=== PATIENT | male | born 1945 | race Caucasian/White ===

== ENCOUNTER → 2023-12-08 09:49 | Outpatient (REF) | payer MEDICARE, SELFPAY ==
[2023-12-08 10:39] LABS: INR 2.54; PT 27.6 Sec (11.4-14.6)
== END ==
LOC: REG 09:49
PROVIDERS: ATTENDING PHYSICIAN Internal Medicine; FAMILY PHYSICIAN Internal Medicine
DX: I48.0 Paroxysmal atrial fibrillation (principal)
CPT/HCPCS: 36415; 85610

== ENCOUNTER → 2023-12-15 09:22 | Outpatient (REF) | payer MEDICARE, SELFPAY ==
[2023-12-15 10:16] LABS: INR 2.31; PT 25.7 Sec (11.4-14.6)
== END ==
LOC: REG 09:22
PROVIDERS: ATTENDING PHYSICIAN Internal Medicine; FAMILY PHYSICIAN Internal Medicine
DX: I48.0 Paroxysmal atrial fibrillation (principal)
CPT/HCPCS: 36415; 85610

== ENCOUNTER → 2023-12-29 08:18 | Outpatient (REF) | payer MEDICARE, SELFPAY ==
[2023-12-29 09:27] LABS: PT 32.4 Sec (11.4-14.6)
== END ==
LOC: REG 08:18
PROVIDERS: ATTENDING PHYSICIAN Internal Medicine; FAMILY PHYSICIAN Internal Medicine
DX: I48.0 Paroxysmal atrial fibrillation (principal)
CPT/HCPCS: 36415; 85610

== ENCOUNTER → 2024-01-05 08:24 | Outpatient (REF) | payer MEDICARE, SELFPAY ==
[2024-01-05 09:35] LABS: INR 2.61; PT 28.3 Sec (11.4-14.6)
== END ==
LOC: REG 08:24
PROVIDERS: ATTENDING PHYSICIAN Internal Medicine; FAMILY PHYSICIAN Internal Medicine
DX: I48.0 Paroxysmal atrial fibrillation (principal)
CPT/HCPCS: 36415; 85610

== ENCOUNTER → 2024-01-12 07:48 | Outpatient (REF) | payer MEDICARE, SELFPAY ==
[2024-01-12 09:05] LABS: INR 2.53; PT 27.6 Sec (11.4-14.6)
== END ==
LOC: REG 07:48
PROVIDERS: ATTENDING PHYSICIAN Internal Medicine; FAMILY PHYSICIAN Internal Medicine
DX: I48.0 Paroxysmal atrial fibrillation (principal)
CPT/HCPCS: 36415; 85610

== ENCOUNTER → 2024-01-31 09:54 | Outpatient (REF) | payer MEDICARE, SELFPAY | LOC: RAD 09:54 | PROVIDERS: ATTENDING PHYSICIAN Nurse Practitioner Adult Health | DX: J18.9 Pneumonia, unspecified organism (principal) | CPT/HCPCS: 71046 ==

== ENCOUNTER → 2024-02-09 08:39 | Outpatient (REF) | payer MEDICARE, SELFPAY ==
[2024-02-09 10:10] LABS: INR 2.62; PT 28.4 Sec (11.4-14.6)
== END ==
LOC: REG 08:39
PROVIDERS: ATTENDING PHYSICIAN Internal Medicine; FAMILY PHYSICIAN Internal Medicine
DX: I48.0 Paroxysmal atrial fibrillation (principal)
CPT/HCPCS: 36415; 85610

== ENCOUNTER → 2024-03-08 08:34 | Outpatient (REF) | payer MEDICARE, SELFPAY ==
[2024-03-08 10:04] LABS: INR 2.05; PT 23.3 Sec (11.4-14.6)
== END ==
LOC: REG 08:34
PROVIDERS: ATTENDING PHYSICIAN Internal Medicine; FAMILY PHYSICIAN Internal Medicine
DX: I48.0 Paroxysmal atrial fibrillation (principal)
CPT/HCPCS: 36415; 85610

== ENCOUNTER 2024-04-04 19:41 | Inpatient (IN) | payer MEDICARE, SELFPAY ==
[2024-04-04 11:39] VITALS: BP 133/62
--- NOTE | 2024-04-04 14:10 | ED.GENMED ---
History of Present Illness
<DELTA Ng - Last Filed: 04/04/24 19:19>
General
Chief Complaint: Oral/Mouth Problem
Source: patient
Exam Limitations: none
Time Seen by Provider: 04/04/24 13:08
Nursing documentation reviewed up to this point in time: agreed with
Travel History
Have you had any contact with someone who has COVID-19?: No
Do you have any symptoms of coronavirus? Fever > 100 degrees, chills, cough, shortness of breath, sore throat, loss of taste or smell, muscle aches, or headache?: No
History of Present Illness
History of Present Illness:
Patient is a 78-year-old male with history of chronic kidney disease hypertension mvo-njfiznj-sayqsxctf diabetes aortic stenosis A-fib CABG, TAVR presents to the ER for evaluation. Patient reports for the past several days he has had ulcers on his
tongue and also has had right lower extremity swelling. He saw his family doctor on Wednesday who did not really give him a diagnosis. He has been using Mylanta. He also reports eating ice cream has helped his discomfort his tongue. He denies any
recent illness fever chills. He denies any difficulty swallowing. He denies any actual sore throat. He on Coumadin and reports he has not missed a dose. He denies any shortness of breath fever.
Past History
<DELTA Ng - Last Filed: 04/04/24 19:19>
Past History
ED Past Medical History: Arrthythmia (Atrial fibrillation, VFIB), CAD, CHF, CVA, HTN, Hypercholesterolemia, NIDDM, Valvular disease (Aortic stenosis) and Other (Peripheral vascular disease, carotid stenosis, GI bleed)
ED Past Surgical History: Cardiac (CABG, TAVR) and Other (PICC line)
Social History
Tobacco: Non-smoker
Alcohol: None
Drug: None
Personal:
Living: with family
Employment: Retired
Family History
Family History: CAD
Review of Systems
<DELTA Ng - Last Filed: 04/04/24 19:19>
Review of Systems
Allergies reviewed?: Yes
All Other Systems: ROS reviewed and negative except as documented in HPI and ROS
Constitutional: Reports no symptoms; Denies fever, fatigue or chills
EENT: Reports other (ulcers to tongue)
Respiratory: Reports no symptoms; Denies trouble breathing
ABD/GI: Reports no symptoms; Denies nausea or vomiting
: Reports no symptoms
Musculoskeletal: Reports other ( swelling to right lower leg )
Skin: Reports no symptoms
Neurological: Reports no symptoms
Phy Exam
<DETLA Ng - Last Filed: 04/04/24 19:19>
General Physical Exam
General Presentation: no apparent distress
General age: appears stated age
General Skin: warm and dry
General Habitus: normal
General Mental: alert
General Hydration: appears well hydrated
ENT Exam
ENT Exam: neck supple and other (Small blisters to tongue)
Eye Exam
Eye Exam: PERRL and EOMI
Cardiovascular Exam
Cardiovascular Exam: irregularly irregular
Pulmonary Exam
Pulmonary Exam: lungs clear and no respiratory distress
Neurological Exam
Neurological Exam: alert and oriented x3
Musculoskeletal Exam
Musculoskeletal Exam: other (right leg swollen + pulses )
Skin Exam
Skin Exam: normal color and warm/dry
Psychiatric Exam
Psychiatric Exam: normal mood/affect
Course
<DELTA Ng - Last Filed: 04/04/24 19:19>
Orders/Labs/Results
Orders:
Orders
04/04/24 14:18
IV Insert/Care/Rem.- Treatment PRN
Venous Doppler Lwr Ext Rt [US Periph Venous LOWER Ext RT] Urgent
Comment:
Reason For Exam: swelling
04/04/24 14:30
Complete Blood Count/With Diff Urgent
Comprehensive Metabolic Panel Urgent
Prothrombin Time Urgent
04/04/24 17:21
0.9% Sodium Chloride 500 ml [Nss] 500 ml IV BOLUS
04/04/24 17:22
Straight cath- Treatment ONCE
04/04/24 17:37
UA Reflex to Culture [Urinalysis Reflex To Culture] Urgent
Date Specimen was Collected: 04/04/24
Time Specimen was Collected: 17:22
Urine Microscopic Reflex Cult Urgent
Urine Culture Urgent
FLOR Source: U
Specimen Description:
Date Specimen was Collected: 04/04/24
Time Specimen was Collected: 17:22
04/04/24 18:14
Chest [CR Chest - 2 Views ] Urgent
Comment:
Reason For Exam: cough
04/04/24 18:17
CefTRIAXone [Rocephin] 1,000 mg IV NOW STA
04/04/24 18:23
Lactic Acid Q4H
Comment: CANCEL 2nd LACTIC ACID IF 1st LACTIC ACID IS LESS THAN 2
Blood Culture Q30M
FLOR Source: Blood/Venous
Specimen Description:
Blood Culture Q30M
FLOR Source: Blood/Venous
Specimen Description:
Abnormal Lab Results
04/04/24 04/04/24
14:30 17:37
WBC 14.1 H 10^3/uL
(4.8-10.8)
RDW 15.8 H %
(11.5-14.5)
Plt Count 94 L 10^3/uL
(130-400)
MPV 12.5 H fL
(7.4-10.4)
Abs Immat Gran (auto) 0.1 H 10^3/uL
(0-0.05)
Absolute Neuts (auto) 12.2 H 10^3/uL
(1.4-6.5)
Absolute Lymphs (auto) 0.6 L 10^3/uL
(1.2-3.4)
Absolute Monos (auto) 1.2 H 10^3/uL
(0.1-0.6)
Immature Gran % 0.6 H %
(0-0.5)
Neutrophils % 86.0 H %
(42.2-75.2)
Lymphocytes % 4.5 L %
(20.5-51.1)
PT 42.0 H Sec
(11.4-14.6)
Sodium 134 L mmol/L
(135-145)
Chloride 96 L mmol/L
(98-107)
BUN 54 H mg/dl
(9-20)
Creatinine 2.2 H mg/dL
(0.7-1.3)
Glucose 154 H mg/dl
(70-99)
Calcium 8.0 L mg/dl
(8.4-10.2)
Alkaline Phosphatase 132 H U/L
(38-126)
Total Protein 5.9 L g/dl
(6.3-8.2)
Albumin 3.0 L g/dl
(3.5-5.0)
Ur Occult Blood Reflex 1+ A
(Negative)
Leukocyte Esterase Rfl Trace A
(Negative)
Urine RBC 3-6 A /HPF
(0-2)
Urine Bacteria (Reflex) Moderate A
(Negative)
Urine Glucose 3+ A
(Negative)
Urine Albumin (Reflex) 1+ A
(Neg - Trace)
04/04/24 14:30
04/04/24 14:30
Vital Signs
Initial and Last Documented VS:
Initial Vital Signs
Temp Pulse Resp BP Pulse Ox
98.5 F 63 18 133/62 96
04/04/24 11:39 04/04/24 11:39 04/04/24 11:39 04/04/24 11:39 04/04/24 11:39
Last Documented Vital Signs
Temp Pulse Resp BP Pulse Ox
98.5 F 102 17 123/61 95
04/04/24 11:39 04/04/24 18:30 04/04/24 18:30 04/04/24 16:00 04/04/24 18:30
Train Driver consulted with Physician
Train Driver consulted with physician?: Yes
Name of Physician Consulted: Néstor
<Lewis Palm MD - Last Filed: 04/04/24 18:57>
Orders/Labs/Results
Orders:
Orders
04/04/24 14:18
IV Insert/Care/Rem.- Treatment PRN
Venous Doppler Lwr Ext Rt [US Periph Venous LOWER Ext RT] Urgent
Comment:
Reason For Exam: swelling
04/04/24 14:30
Complete Blood Count/With Diff Urgent
Comprehensive Metabolic Panel Urgent
Prothrombin Time Urgent
04/04/24 17:21
0.9% Sodium Chloride 500 ml [Nss] 500 ml IV BOLUS
04/04/24 17:22
Straight cath- Treatment ONCE
04/04/24 17:37
UA Reflex to Culture [Urinalysis Reflex To Culture] Urgent
Date Specimen was Collected: 04/04/24
Time Specimen was Collected: 17:22
Urine Microscopic Reflex Cult Urgent
Urine Culture Urgent
FLOR Source: U
Specimen Description:
Date Specimen was Collected: 04/04/24
Time Specimen was Collected: 17:22
04/04/24 18:14
Chest [CR Chest - 2 Views ] Urgent
Comment:
Reason For Exam: cough
04/04/24 18:17
CefTRIAXone [Rocephin] 1,000 mg IV NOW STA
04/04/24 18:23
Lactic Acid Q4H
Comment: CANCEL 2nd LACTIC ACID IF 1st LACTIC ACID IS LESS THAN 2
Blood Culture Q30M
FLOR Source: Blood/Venous
Specimen Description:
Blood Culture Q30M
FLOR Source: Blood/Venous
Specimen Description:
Abnormal Lab Results
04/04/24 04/04/24
14:30 17:37
WBC 14.1 H 10^3/uL
(4.8-10.8)
RDW 15.8 H %
(11.5-14.5)
Plt Count 94 L 10^3/uL
(130-400)
MPV 12.5 H fL
(7.4-10.4)
Abs Immat Gran (auto) 0.1 H 10^3/uL
(0-0.05)
Absolute Neuts (auto) 12.2 H 10^3/uL
(1.4-6.5)
Absolute Lymphs (auto) 0.6 L 10^3/uL
(1.2-3.4)
Absolute Monos (auto) 1.2 H 10^3/uL
(0.1-0.6)
Immature Gran % 0.6 H %
(0-0.5)
Neutrophils % 86.0 H %
(42.2-75.2)
Lymphocytes % 4.5 L %
(20.5-51.1)
PT 42.0 H Sec
(11.4-14.6)
Sodium 134 L mmol/L
(135-145)
Chloride 96 L mmol/L
(98-107)
BUN 54 H mg/dl
(9-20)
Creatinine 2.2 H mg/dL
(0.7-1.3)
Glucose 154 H mg/dl
(70-99)
Calcium 8.0 L mg/dl
(8.4-10.2)
Alkaline Phosphatase 132 H U/L
(38-126)
Total Protein 5.9 L g/dl
(6.3-8.2)
Albumin 3.0 L g/dl
(3.5-5.0)
Ur Occult Blood Reflex 1+ A
(Negative)
Leukocyte Esterase Rfl Trace A
(Negative)
Urine RBC 3-6 A /HPF
(0-2)
Urine Bacteria (Reflex) Moderate A
(Negative)
Urine Glucose 3+ A
(Negative)
Urine Albumin (Reflex) 1+ A
(Neg - Trace)
04/04/24 14:30
04/04/24 14:30
Vital Signs
Initial and Last Documented VS:
Initial Vital Signs
Temp Pulse Resp BP Pulse Ox
98.5 F 63 18 133/62 96
04/04/24 11:39 04/04/24 11:39 04/04/24 11:39 04/04/24 11:39 04/04/24 11:39
Last Documented Vital Signs
Temp Pulse Resp BP Pulse Ox
98.5 F 102 17 123/61 95
04/04/24 11:39 04/04/24 18:30 04/04/24 18:30 04/04/24 16:00 04/04/24 18:30
<DELTA Ng - Last Filed: 04/04/24 19:19>
MDM/Problems Addressed
Differential Diagnosis Includes:
Not limited to viral syndrome, infection, UTI, less likely DVT, edema
MDM/Problems Addressed:
1720:Patient is a 78-year-old male who initially presented to the ER complaining of sores on his tongue and swelling to his right leg. He is on Coumadin and has not missed a dose. He is a poor historian. He does straight cath himself. is
now present gives additional history that patient has been sleeping all the time and is very tired will give patient a small bolus of fluid as he self caths himself and just catheterize himself and then obtain a urine to check for infection.
Ultrasound was done of the right lower extremity negative. Patient's white count is mildly elevated though he is afebrile . Pt has chronic renal disease and is kidney function is elevated at baseline however potassium normal at 3.7.
Patient's INR is elevated as well at 4.39. Patient was eval by Dr. Palm. Patient complains of intermittent cough will check chest x-ray however with complaints of fatigue elevated white count various for complaints elevated INR moderate bacteria
in urine will adm. will check cx, lactic and order antibx
1905: no acute findings on chest x-ray lactic 0.9. With complaints of weakness and bacteria in urine with elevated D-dimer will admit
Chronic conditions affecting care:
afib on coumadin (elevated INR) diabetes CHF CAD hypertension hyperlipidemia mitral regurg MA cardiac arrest
<DELTA Ng - Last Filed: 04/04/24 19:19>
*Critical Care Note
Total Time (30-74mins, 75-104mins- exclusive of procedures): Not Applicable
ED Attending Note
<DELTA Ng - Last Filed: 04/04/24 19:19>
-
Portions of this chart may have been created with voice recognition software.� Occasional wrong word or��sound alike� substitutions may have occurred due to the inherent limitations of voice recognition software.
<Lewis Palm MD - Last Filed: 04/04/24 18:57>
ED Attending Note
Patient seen and examined by attending physician: Yes
I performed the substantive portion of visit, reviewed & personally made and approve the management plan that is documented in note by myself or CARLIN.: Yes
ED Attending Note:
Progressive weakness over 2 weeks. Sore tongue. Right leg swelling. Decreased activity some cough.
On exam patient is chronically ill-appearing. He has some small sores on his tongue. No tongue swelling. No airway issues. Lungs with a few rhonchi. No respiratory distress. Regular rate and rhythm. Abdomen nontender. Moderate swelling to
the right lower extremity with pitting however no erythema or open wounds
Patient with a leukocytosis, mildly positive urine. Self catheterizes. Mildly low platelet count. General weakness. We will get a chest x-ray. Patient warrants inpatient management. Cover with a antibiotics for possible urine issue as a cause
Discharge Plan
Departure
Patient Disposition: Admit
Date of Disposition: 04/04/24
Time of Disposition: 19:10
Admit to: Med/Surg
Admit to doctor: hospitalist
Presentation/result/management discussed w/ accepting MD/DO: Hospitalist
Patient with high blood pressure during this ER visit?: No
Condition: Fair
Covid-19: Not Applicable
Discharge Problem:
Weakness, Elevated INR, Acute UTI
Prescriptions:
No Action
ezetimibe 10 MG tablet
10 mg PO HS
multivitamin with folic acid [Tab-A-Nicole] 1 TABLET tablet
1 tab PO DAILY
aspirin 81 MG tablet,delayed release (DR/EC)
81 mg PO QPM
pantoprazole 40 MG tablet,delayed release (DR/EC)
40 mg PO BID
kfdifu-afrekov-sox palm-min 17 [Prostate Therapy] 1 EACH capsule
1 cap PO DAILY
fish oil-dha-epa 1 EACH capsule
1,200 mg PO BID
Lactobac 2-Bifido 1-S. therm [High Potency Probiotic] 1 CAP capsule
1 cap PO BID
ferrous sulfate [FeroSul] 325 MG tablet
325 mg PO DAILY
metoprolol succinate 100 MG tablet extended release 24 hr
200 mg PO HS
amiodarone [Pacerone] 200 MG tablet
200 mg PO DAILY Qty: 30 0RF
amlodipine 10 MG tablet
10 mg PO HS
warfarin [Jantoven] 2 MG tablet
2 mg PO QPM 0RF
ipratropium-albuterol 3 ML solution for nebulization
3 ml inhalation R BID
torsemide 20 MG tablet
40 mg PO DAILY
famotidine 40 MG tablet
40 mg PO HS
budesonide 0.5 MG/2 ML suspension for nebulization
0.5 mg inhalation R BID
melatonin 5 MG tablet
10 mg PO HS
Hydrocortisone [Procto-Med Hc] 28 GM Crm.Pe.Carlin
1 applic topical TID
torsemide 20 MG tablet
20 mg PO QPM
doxycycline hyclate 100 MG capsule
100 mg PO BID 6 Days Qty: 12 0RF
Rx Instructions:
hold ferrous sulphate while on antibiotic
cephalexin 500 mg capsule
500 mg PO Q8H 7 Days Qty: 21 0RF
Interventions
Interventions:
*Risk Screen - Suicide Last Done: 04/04/24 18:07
*General Assessment Last Done: 04/04/24 18:07
*Neglect/Abuse Screening Last Done: 04/04/24 18:07
ED- Fall Risk Assessment Last Done: 04/04/24 18:07
*ED COVID-19 Vaccine History Last Done: 04/04/24 11:39
Discharge Date and Time
Print Language: KYRGYZ
[2024-04-04 14:34] VITALS: BP 121/61
[2024-04-04 14:47] LABS: % Basophils 0.3 % (0-2); % Immature Granulocytes 0.6 % (0-0.5); % Lymphocytes 4.5 % (20.5-51.1); % Monocytes 8.6 % (1.7-9.3); Absolute Immature Granulocytes 0.1 10^3/uL (0-0.05); Absolute Lymphocytes 0.6 10^3/uL (1.2-3.4); Absolute Monocytes 1.2 10^3/uL (0.1-0.6); Absolute Neutrophils 12.2 10^3/uL (1.4-6.5); Hematocrit 42.1 % (39.0-52.0); Hemoglobin 14.4 g/dL (13.0-18.0); Mean Corp Hgb Conc. 34.2 g/dL (33.0-37.0); Mean Corpuscular Hgb 29.6 pg (27.0-31.0); Mean Corpuscular Volume 86.4 fL (80.0-94.0); Nucleated Red Blood Cells % 0 % (-); Red Blood Cell Count 4.87 10^6/uL (4.70-6.10); Red Cell Dist. Width 15.8 % (11.5-14.5); White Blood Cell Count 14.1 10^3/uL (4.8-10.8)
[2024-04-04 15:00] VITALS: BP 112/68
[2024-04-04 15:01] LABS: ALT (SGPT) 36 U/L (0-50); AST (SGOT) 51 U/L (17-59); Alkaline Phosphatase 132 U/L (38-126); Blood Urea Nitrogen 54 mg/dl (9-20); Carbon Dioxide 30 mmol/L (22-30); Chloride 96 mmol/L (98-107); Glucose 154 mg/dl (70-99); Potassium 3.7 mmol/L (3.5-5.1); Sodium 134 mmol/L (135-145); Total Bilirubin 0.8 mg/dl (0.2-1.3); Total Protein 5.9 g/dl (6.3-8.2); eGFR 29.91
[2024-04-04 15:05] LABS: INR 4.39
[2024-04-04 15:31] LABS: Mean Platelet Volume 12.5 fL (7.4-10.4); Platelet Count 94 10^3/uL (130-400)
[2024-04-04 16:00] VITALS: BP 123/61
[2024-04-04] MEDS: NSS 500 IV (17:23)
[2024-04-04 17:44] LABS: Urine Albumin 1+ (Neg - Trace); Urine Bilirubin Negative (Negative); Urine Character Clear (Clear); Urine Color Yellow; Urine Glucose 3+ (Negative); Urine Ketone Negative (Negative); Urine Leukocyte Trace (Negative); Urine Nitrite Negative (Negative); Urine Occult Blood 1+ (Negative); Urine Specific Gravity 1.005 (<1.030); Urine Urobilinogen Negative (Neg - 1+)
[2024-04-04 17:53] LABS: Urine Bacteria Moderate (Negative)
[2024-04-04] MEDS: ROCEPHIN 1000 MG IV (18:27)
[2024-04-04 18:41] LABS: Lactic Acid 0.9 mmol/L (0.7-2.0)
--- NOTE | 2024-04-04 19:38 | HPS.HSE ---
Family Physician
-
Family Physician: Leobardo Castillo
Chief Complaint
-
weakness
History of Present Illness
78-year-old male past medical history of aortic stenosis status post aortic valve replacement 2016, persistent atrial fibrillation on Coumadin, coronary artery disease status post CABG in 2000, ischemic cardiomyopathy with EF of 30%, HFrEF, moderate
to severe mitral regurgitation, V-fib arrest status post ICD, right bundle branch block, hypertension, hyperlipidemia, diabetes, CKD stage III, obstructive sleep apnea on CPAP, chronic right lower extremity edema secondary to venous insufficiency
after vein harvest for CABG, BPH, urinary retention and self catheterizes, history of MSSA bacteremia, presenting with weakness, balance dysfunction, fatigue and increased lethargy for the past 2 weeks. He does not urinate normally and self
catheterize multiple times a day. He has some abdominal pain but has not had a bowel movement in 3 days. Denies nausea or vomiting.
He complains of oral ulcers in his mouth for which he has been taking Mylanta swish and swallow without improvement.
He has a slight cough with some slight shortness of breath that is not particularly productive. He denies any fevers or chills. Denies any chest pain.
Patient is also been having creasing right lower extremity edema which she developed after vein harvest performed on that extremity for CABG. Edema has been worse than usual.
In the emergency room he was found to have some evidence of right nostril nasal bleeding but patient denies having any knowledge of this.
He denies smoking or alcohol use.
Medical History
Past Medical History
Past Medical History: Reports Other (aortic stenosis status post aortic valve replacement 2016, persistent atrial fibrillation on Coumadin, coronary artery disease status post CABG in 2000, ischemic cardiomyopathy with EF of 30%, HFrEF, moderate to
severe mitral regurgitation, V-fib arrest status post ICD, right bundle branch block, hy)
Past Surgical History: Reports None
Social History
Tobacco: Non-smoker
Alcohol: None
Drug: None
Family History
Family History: Not pertinent
Allergies / Home Medications
Allergies reflects when Allergies were last updated in [facility].
Home Medications with original date entered in [facility]
Allergy/Medication List:
Allergies
Allergy/AdvReac Type Severity Reaction Status Date / Time
Penicillins Allergy Hives; Verified 04/04/24 11:39
Tolerated
Cefazolin
Oct 2021
Hhyqysa-RTD-HpM Reductase Allergy elevated Verified 04/04/24 11:39
Inhibitor liver
[Tvdyzdy-Nxy-Nka Reductase enzymes,
Inhibitor] 'makes me
crazY'
Home Medications
ezetimibe 10 mg tablet 10 mg PO HS High cholesterol 04/03/14
multivitamin with folic acid 400 mcg tablet (Tab-A-Nicole) 1 tab PO DAILY Supplement 03/04/17
aspirin 81 mg tablet,delayed release 81 mg PO QPM Blood clot prevention/tx 07/07/17
mzupsj-eldvkfv-yez palm-min 17 capsule (Prostate Therapy capsule) 1 cap PO DAILY Supplement 10/26/18
pantoprazole 40 mg tablet,delayed release 40 mg PO BID Gastrointestinal issue 10/26/18
Lactobac no.2-Bifidobac no.1-S. thermo 112.5 billion cell capsule (High Potency Probiotic) 1 cap PO BID Supplement 06/20/20
ferrous sulfate 325 mg (65 mg iron) tablet (FeroSul) 325 mg PO DAILY Supplement 06/20/20
fish oil-dha-epa 1,200 mg-144 mg-216 mg capsule 1,200 mg PO BID Supplement 06/20/20
metoprolol succinate 100 mg tablet,extended release 24 hr 200 mg PO HS Blood pressure 10/25/21
amiodarone 200 mg tablet (Pacerone) 200 mg PO DAILY #30 tabs 11/03/21
amlodipine 10 mg tablet 10 mg PO HS Blood pressure 12/02/21
warfarin 2 mg tablet (Jantoven) 2 mg PO QPM 12/08/21
Hydrocortisone [Procto-Med Hc] 1 applic topical TID Anti-inflammatory 01/23/22
budesonide 0.5 mg/2 mL suspension for nebulization 0.5 mg inhalation R BID Lung/breathing issues 01/23/22
famotidine 40 mg tablet 40 mg PO HS Gastrointestinal issue 01/23/22
ipratropium 0.5 mg-albuterol 3 mg (2.5 mg base)/3 mL nebulization soln 3 ml inhalation R BID Lung/breathing issues 01/23/22
melatonin 5 mg tablet 10 mg PO HS Sleep 01/23/22
torsemide 20 mg tablet 20 mg PO QPM Blood pressure 01/23/22
torsemide 20 mg tablet 40 mg PO DAILY Blood pressure 01/23/22
doxycycline hyclate 100 mg capsule 100 mg PO BID 6 days #12 caps 01/28/22
cephalexin 500 mg capsule 500 mg PO Q8H 7 days #21 caps 10/05/22
Review of Systems
-
History Source: Patient
A 12 point ROS was completed and negative except as noted: Yes
Constitutional: Reports No Symptoms
EENT: Reports See HPI
Respiratory: Reports See HPI
Cardiac: Reports See HPI
Abdomen/GI: Reports See HPI
: Reports See HPI
Musculoskeletal: Reports No Symptoms
Skin: Reports No Symptoms
Neurological: Reports No Symptoms
Endocrine: Reports No Symptoms
Hematologic/Lymphatic: Reports No Symptoms
Psych: Reports No Symptoms
Physical Exam
Vital Signs
Vital Signs
Temp Pulse Resp BP Pulse Ox
98.5 F 102 17 123/61 95
04/04/24 11:39 04/04/24 18:30 04/04/24 18:30 04/04/24 16:00 04/04/24 18:30
Physical Exam
General: Well Developed, Well Nourished and No Apparent Distress
HEENT: NormoCephalic, Moist mucous membranes and Atraumatic
Respiratory: Clear
Cardiac: S1/S2, Regular Rhythm and Peripheral Edema (R leg ); No Murmur or Rub
GI: Soft, Non Distended, Normal Bowel Sounds and Tender; No Organomegaly
Rectal: Deferred by Provider
Musculoskeletal: No Clubbing, No Cyanosis and No Edema
Skin: No Rash
Neuro: Nonfocal/grossly intact
Laboratory Results
-
04/04/24 14:30
04/04/24 14:30
Laboratory Results
PT 42.0 Sec (11.4-14.6) H 04/04/24 14:30
INR 4.39 04/04/24 14:30
Lactic Acid Cancelled 04/04/24 22:30
Total Bilirubin 0.8 mg/dl (0.2-1.3) 04/04/24 14:30
AST 51 U/L (17-59) 04/04/24 14:30
ALT 36 U/L (0-50) 04/04/24 14:30
Alkaline Phosphatase 132 U/L (38-126) H 04/04/24 14:30
Data Reviewed
-
Lab Data: Labs Reviewed by me
Old Records: Reviewed
Impression/Plan
-
IMPRESSION:
PLAN:
# Weakness likely secondary to UTI secondary to self-catheterization
# History of multidrug-resistant Enterobacter UTI
-Leukocytosis
-Urinalysis shows 6-10 WBC, moderate bacteria,
-Check urine culture, blood culture
-Patient is allergic to penicillin Enterobacter was resistant to cephalosporins
-Give single dose of fosfomycin
-Self-catheterization protocol
# History of urinary retention secondary to BPH
# Right lower extremity was secondary to venous insufficiency after vein harvest for CABG
-Venous ultrasound negative for DVT
-compression
# Oral ulcers
-Magic mouthwash
# Evidence of right nostril bleeding
-Not actively bleeding in the setting of elevated INR
# Supratherapeutic INR
-INR 4.39
-Hold Coumadin today
-Recheck INR in the morning
# Constipation
-Start MiraLAX
# History of persistent atrial fibrillation
-Continue metoprolol
Aortic stenosis status post aortic valve replacement 2016
Coronary artery disease status post CABG
-Continue aspirin
Ischemic cardiomyopathy with EF of 30%
-Hold torsemide
Moderate to severe mitral regurgitation
V-fib arrest status post ICD
-Continue amiodarone
Right bundle branch
Essential hypertension
-Continue amlodipine
Hyperlipidemia
-Continue Zetia
Type 2 diabetes
CKD stage III
-Renal function at baseline
Obstructive sleep apnea
History of MSSA bacteremia
DNR/DNI
DVT prophylaxis
Regular diet
[2024-04-04] MEDS: MONUROL 3 GM PO (19:49)
--- NOTE | 2024-04-04 20:30 | PTCARENOTE ---
Pt arrived to unit from ED and ambulated with a single point cane from stretcher to bed. Pt is AAOx3 but very hard of hearing. Pt oriented to room, call delarosa within reach. No complaints of pain, VS stable at this time.
[2024-04-04 20:32] VITALS: BP 143/79
[2024-04-04 20:36] VITALS: BMI 25.3
[2024-04-04] MEDS: PULMICORT 0.5 MG INH (20:55)
[2024-04-04] MEDS: DUONEB 3 ML INH (20:55)
[2024-04-04] MEDS: PROSCAR 5 MG PO (21:30)
[2024-04-04] MEDS: NORVASC 10 MG PO (21:30)
[2024-04-04] MEDS: ZETIA 10 MG PO (21:30)
[2024-04-04] MEDS: VISBIOME 1 CAP PO (21:30)
[2024-04-04] MEDS: PROTONIX 40 MG PO (21:30)
[2024-04-04] MEDS: FIRST-MOUTHWASH BLM SUSPENSION 5 ML PO (21:31)
[2024-04-04 21:48] LABS: Glucose - Point of Care 197 mg/dl (70-99)
[2024-04-04 21:52] VITALS: BMI 25.3
[2024-04-04 23:00] VITALS: BP 149/65
[2024-04-05] VITALS (8 sets, daily range): BP systolic 109–141; BP diastolic 50–72; PULSE 58–64; O2SAT 95; BMI 25.2; BMI 25.1
--- NOTE | 2024-04-05 06:38 | PTCARENOTE ---
Addendum entered by Baljeet Adrian RN 04/05/24 19:08:
[place] AMBER Kyle ordered IV Rocephin q24h.
Original Note:
Pt's blood cultures showing gram positive cocci. [place] AMBER Kyle notified, no new orders at this time.
[2024-04-05 07:09] LABS: % Basophils 0.3 % (0-2); % Eosinophils 0.1 % (0-6); % Immature Granulocytes 0.7 % (0-0.5); % Lymphocytes 7.7 % (20.5-51.1); % Monocytes 8.2 % (1.7-9.3); Absolute Immature Granulocytes 0.1 10^3/uL (0-0.05); Absolute Neutrophils 10.3 10^3/uL (1.4-6.5); Hematocrit 40.3 % (39.0-52.0); Hemoglobin 13.4 g/dL (13.0-18.0); Mean Corp Hgb Conc. 33.3 g/dL (33.0-37.0); Mean Corpuscular Hgb 29.4 pg (27.0-31.0); Mean Corpuscular Volume 88.4 fL (80.0-94.0); Mean Platelet Volume 12.2 fL (7.4-10.4); Nucleated Red Blood Cells % 0 % (-); Platelet Count 76 10^3/uL (130-400); Red Blood Cell Count 4.56 10^6/uL (4.70-6.10); Red Cell Dist. Width 15.7 % (11.5-14.5); White Blood Cell Count 12.4 10^3/uL (4.8-10.8)
[2024-04-05 07:09] LABS: Glucose - Point of Care 127 mg/dl (70-99)
[2024-04-05 07:17] LABS: INR 4.63; PT 43.8 Sec (11.4-14.6)
[2024-04-05] MEDS: NOVOLOG FLEXPEN-LOW RESISTANCE SC (07:42)
[2024-04-05 07:58] LABS: ALT (SGPT) 32 U/L (0-50); AST (SGOT) 36 U/L (17-59); Albumin 2.7 g/dl (3.5-5.0); Alkaline Phosphatase 128 U/L (38-126); Blood Urea Nitrogen 41 mg/dl (9-20); Calcium 7.9 mg/dl (8.4-10.2); Carbon Dioxide 29 mmol/L (22-30); Chloride 101 mmol/L (98-107); Estimated Creatinine Clearance 29 ml/min; Glucose 130 mg/dl (70-99); Potassium 3.4 mmol/L (3.5-5.1); Sodium 136 mmol/L (135-145); Total Bilirubin 0.6 mg/dl (0.2-1.3); Total Protein 5.3 g/dl (6.3-8.2); eGFR 31.63
[2024-04-05] MEDS: DUONEB 3 ML INH ×3 (08:00→19:25)
[2024-04-05] MEDS: PULMICORT 0.5 MG INH ×2 (08:00→19:25)
[2024-04-05] MEDS: FARXIGA 10 MG PO (09:17)
[2024-04-05] MEDS: PROTONIX 40 MG PO ×2 (09:17→19:58)
[2024-04-05] MEDS: THERAGRAN 1 TABLET PO (09:17)
[2024-04-05] MEDS: FIRST-MOUTHWASH BLM SUSPENSION 5 ML PO ×4 (09:17→23:06)
[2024-04-05] MEDS: VISBIOME 1 CAP PO ×2 (09:17→19:58)
[2024-04-05] MEDS: FEOSOL 325 MG PO (09:17)
[2024-04-05] MEDS: MIRALAX 17 GRAMS PO (09:18)
[2024-04-05 09:34] LABS: Glycohemoglobin (HgbA1c) 7.7 % (4.0-5.6)
[2024-04-05 11:11] LABS: Glucose - Point of Care 210 mg/dl (70-99)
--- NOTE | 2024-04-05 12:33 | CM ---
Patient seen bedside with Ria, initial assessment completed. Patient resides with his , daughter, and son in law in a split level home, one step to enter. Patient has had [facility] in the past and been to [facility]. Patient has a cane and
RW at home. Patient confirms PCP Leobardo Castillo, pharmacy [facility]. Patient confirms prescription coverage, denies food insecurities. CM discussed PT/OT recommendations of SNF vs HH, patient and would prefer to return home with home
PT, requesting referral to [facility], TT sent to [facility] liaison. CM will continue to follow for all discharge planning needs.
Plan; home with [facility] pending acceptance, not agreeable to rehab at this time.
[2024-04-05] MEDS: NOVOLOG FLEXPEN-LOW RESISTANCE 2 UNITS SC ×2 (12:34→17:08)
--- NOTE | 2024-04-05 15:04 | CON.ID ---
Consultation
-
Date/Time Consultation Requested: April 05, 2024 1455
Date/Time Consultation Performed: April 05, 2024 1500
Requesting Provider: Dr. Javier Allen
Performing Provider: Dr. Maia Cooper
Reason for Consultation: GP bacteremia
Chief Complaint / Past History
Chief Complaint
Weakness
History of Present Illness
History obtained from the patient as well as from his at bedside. He is a 78-year-old male with diabetes mellitus, TAVR, ischemic cardiomyopathy, ICD placement, CKD 3, urinary retention requiring self-catheterization, history of UTI, who
presented to the hospital on April 04 due to approximately 2-week history of progressive weakness and increasing lethargy. No fevers. Positive chills. No urinary symptoms. No flank pain. Complains of mouth sores. No sore throat. No rhinorrhea.
In the ER patient's white count was 14.1. Urinalysis trace leukocyte esterase 6-10 white blood cells. He received a dose of ceftriaxone and fosfomycin. However the admission blood cultures are now positive for GPC in pairs and chains. Patient
denies recent dental work. No tooth pain. No sore throat. No cough or shortness of breath. No cuts or wounds. No nausea, abdominal pain. Had diarrhea 2 weeks ago which improved. Has chronic right lower extremity edema which is slightly worse.
No ill contacts. He stays home most of the time.
Past History
Additional Past Medical History:
Diabetes mellitus type 2.
Aortic stenosis, status post transcatheter aortic valve
replacement.
Ischemic cardiomyopathy status post ICD placement.
Coronary disease, status post CABG.
Hypertension.
CKD3
Peripheral artery disease including carotid stenosis.
History of MSSA bacteremia, pneumonia with negative DONTAE, status
post six weeks of cefazolin completed December 05, 2021.
Atrial fibrillation, on Coumadin.
Obstructive sleep apnea, on CPAP.
Urinary retention, self cath
UTI
Venous stasis, chronic R>LE edema
History of GI bleed.
Allergy History:
Penicillins Allergy (Verified 04/04/24 11:39)
Hives; Tolerated Cefazolin Oct 2021
Sxbfsxr-SXL-IkU Reductase Inhibitor [Bomgptv-Nfb-Fml Reductase Inhibitor] Allergy (Verified 04/04/24 11:39)
elevated liver enzymes, 'makes me crazY'
Medications Reviewed: Yes
Current Antibiotics:
s/p ceftriaxone x 1
s/p fosfomycin x 1
Social History
Tobacco: Non-Smoker
Alcohol: None
Drug: None
Personal:
Family History
Family History: Not Pertinent
Review of Systems
Review of Systems
General: Chills and Change in Appetite; Negative Fever
HEENT: Negative Stiff Neck, Sinus Problems, Headache or Pharyngitis
Cardiovascular: Negative Chest Pain
Respiratory: Negative Dyspnea or Cough
Gasteroenterology: Negative Nausea or Vomiting
Endocrine: Weakness and Fatigue
Musculoskeletal: Negative Arthralgias
Skin / Hair / Nails: Negative Rash
Neurological: Negative Dizziness
All systems: All other systems were reviewed and were negative
Vital Signs
Temp Pulse Resp BP Pulse Ox
98.0 F 72 16 109/50 95
04/05/24 11:01 04/05/24 13:39 04/05/24 13:39 04/05/24 11:01 04/05/24 13:39
Physical Exam
Physical Exam
Constitutional: No Acute Distress and Comfortable
Eyes: No Conjunctival Hemorrhage and Sclera Anicteric
Oral: Other (Tongue mildly inflamed apeparing); Negative No Thrush
Cardiovascular: Irregular Rate, S1/S2 and Other (LCW: ICD site no erythema/induration)
Pulmonary: Clear
Gastrointestinal: Soft, Non Tender, Non Distended and Normal Bowel Sounds
Genito-Urinary: Negative Suprapubic Tenderness or CVA Tenderness
Extremities: Edema (RLE 2+) and Venous Insufficiency (RLE)
Musculoskeletal: Negative Joint Swelling or Joint Effusion
Neurological: AO x 3
Lab / Diagnostic Study Results
04/05/24 06:21
04/05/24 06:21
Abs Immat Gran (auto) 0.1 10^3/uL (0-0.05) H 04/05/24 06:21
Absolute Neuts (auto) 10.3 10^3/uL (1.4-6.5) H 04/05/24 06:21
Absolute Lymphs (auto) 1.0 10^3/uL (1.2-3.4) L 04/05/24 06:21
Absolute Monos (auto) 1.0 10^3/uL (0.1-0.6) H 04/05/24 06:21
Absolute Basos (auto) 0.0 10^3/uL (0-0.2) 04/05/24 06:21
Immature Gran % 0.7 % (0-0.5) H 04/05/24 06:21
Neutrophils % 83.0 % (42.2-75.2) H 04/05/24 06:21
Lymphocytes % 7.7 % (20.5-51.1) L 04/05/24 06:21
Monocytes % 8.2 % (1.7-9.3) 04/05/24 06:21
Eosinophils % 0.1 % (0-6) 04/05/24 06:21
Basophils % 0.3 % (0-2) 04/05/24 06:21
PT 43.8 Sec (11.4-14.6) H 04/05/24 06:21
INR 4.63 04/05/24 06:21
Lactic Acid Cancelled 04/04/24 22:30
Ur Squamous Epith Cells 3-5 /LPF (Few) 04/04/24 17:37
Microbiology Results
Micro:
04/04/24 17:37 Urine Culture - Preliminary
Urine Gram negative bacilli
04/04/24 18:23 Blood Culture - Preliminary
Blood/Venous Positive culture in progress
Gram Stain - Final
04/04/24 18:23 Blood Culture - Preliminary
Blood/Venous Positive culture in progress
Gram Stain - Final
04/04/24 CXR: Slightly increased hazy opacity at the left lung base, as described. Probable increased small pleural effusion. Cannot exclude atelectasis or mild pneumonia. Slightly diminished degree of inspiration likely contributing to slight
crowding of parenchymal markings at the right lung base.
04/04/24 Peripheral venous US RLE: no DVT
Assessment / Plan
# GPC pairs and chains bacteremia - suspect streptococcus
# Leukocytosis
# Asymptomatic bacteruria - s/p fosfomycin x 1 in ED
# Presence of TAVR, ICD
# PCN allergy
- Agree with TTE
-Repeat blood cx's x2
- Resume ceftriaxone
- Start Vancomycin pending identification of organism
- Follow temps/wbc
Care Review
Plan reviewed with: Physician (Dr. Allen)
--- NOTE | 2024-04-05 16:25 | VNURNOTE ---
Home Health Liaison met with patient and at 1500 to discuss [facility] nurse/therapy, visits, schedule and homebound status. Patient is agreeable and understands that visits at home will be 2-3 x per week to assess and teach medical management.
[facility] brochure provided with contact information. Patient is aware that [facility] will contact them for start of care in 1-2 days after discharge from .
[facility] referral completed in [facility].
[2024-04-05] MEDS: VANCOCIN 540 MG IV (16:31)
[2024-04-05 16:33] LABS: Glucose - Point of Care 241 mg/dl (70-99)
--- NOTE | 2024-04-05 16:37 | PHA.VAN.IN ---
Assessment
- Assessment
Renal Function: Appears elevated from baseline (01/27/22 BASELINE SCR: 1.7)
Concomitant Antimicrobials: ROCEPHIN
- Previous Dosing Experience
Previous Regimen: DOSING BY RANDOM LEVELS
Date of Regimen: 01/23/22
Provided Trough of: UNKNOWN
Provided AUC of: UNKNOWN
Patient's SCR is: Decreased compared to previous dosing experience (01/23/22 SCR = 2.8)
Patient's weight is: Decreased compared to previous dosing experience (01/23/22 WT = 77.6 KG)
Plan
- Plan
Initial / Loading Dose: 2GM
Maintenance Regimen: DOSING BY RANDOM LEVELS
Monitoring: RANDOM VANCOMYCIN LEVEL 04/06/24 AM
Pharmacokinetics Vancomycin I
- -
Patient Age: 78
Patient Sex: Male
Vancomycin Day #: 1
Requesting Provider: MELISSA
Pertinent Antimicrobial Allergies:
Allergies
Penicillins Allergy (Verified 04/04/24 11:39)
Hives; Tolerated Cefazolin Oct 2021
Height / Weight:
Height 5 ft 9 in
Actual Weight 77.252 kg
Pertinent Past Medical History: DM; SELF CATHETERIZES
- Vital Signs / Lab Results
Temp Pulse Resp BP Pulse Ox
97.7 F 61 17 126/55 96
04/05/24 15:09 04/05/24 15:09 04/05/24 15:09 04/05/24 15:09 04/05/24 15:09
Lab Results - Hematology
04/04/24 04/05/24
14:30 06:21
WBC 14.1 H 12.4 H
Lab Results - Chemistry
04/04/24 04/05/24
14:30 06:21
BUN 54 H 41 H
Creatinine 2.2 H 2.1 H
Estimated Creat Clear
Albumin 3.0 L 2.7 L
04/04/24 04/04/24
18:23 22:30
Lactic Acid 0.9 Cancelled
Lab Results - Urine
04/04/24
17:37
Urine Nitrite (Reflex) Negative
Leukocyte Esterase Rfl Trace A
Urine WBC (Reflex) 6-10
Ur Squamous Epith Cells 3-5
Urine Bacteria (Reflex) Moderate A
Microbiology Results
04/04/24 17:37 Urine Culture - Preliminary
Urine Gram negative bacilli
04/04/24 18:23 Blood Culture - Preliminary
Blood/Venous Positive culture in progress
Gram Stain - Final
04/04/24 18:23 Blood Culture - Preliminary
Blood/Venous Positive culture in progress
Gram Stain - Final
--- NOTE | 2024-04-05 16:49 | W.PN.HOSP.TC ---
Today's Communication/Plan
-
Antibiotics
Workup for gram-positive bacteremia
Assessment / Plan
Assessment / Plan
Impression:
Presentation with generalized fatigue, chills
Gram-positive cocci in pairs/chains bacteremia
Leukocytosis
Asymptomatic bacteriuria
Coumadin-induced coagulopathy
Conditions prior to admission:
Chronic CHF reduced EF.
Ischemic cardiomyopathy
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
Aortic stenosis status post TAVR
Moderate to severe MR
Hypertension
Paroxysmal atrial fibrillation
Anticoagulation with Coumadin
History of MSSA bacteremia treated with prolonged IV antibiotics
CKD stage III baseline creatinine 2.1
Plan
Gram-positive bacteremia pending final cultures.
Suspect Streptococcus.
ID consultation.
Repeat blood culture for clearance.
Antibiotics status post ceftriaxone given in the emergency room.
Continue vancomycin and ceftriaxone for now.
2D echocardiogram.
Asymptomatic bacteriuria. Final urine cultures pending
Chronic urine retention requiring self-catheterization
Teach self-catheterization technique
Status post single dose of fosfomycin on admission
Stomatitis/oral ulcers
Continue Magic mouthwash
Reported epistaxis at home no recurrence since admission.
Paroxysmal atrial fibrillation.
Rate control with metoprolol.
Anticoagulation with Coumadin. INR above 4. Hold and follow-up INR in AM. Adjust dose accordingly to
History of V-fib status post AICD.
Continue amiodarone.
CAD with history of CABG.
Ischemic cardiomyopathy with LVEF of 30%.
Continue aspirin.
Resume torsemide. Monitor of volume status closely.
Continue Farxiga
Essential hypertension
Continue amlodipine
Type 2 diabetes by history
Check hemoglobin A1c
Continue Farxiga
CKD stage III.
Baseline creatinine around 2.
Monitor closely.
Continue Farxiga.
CODE STATUS DNR
Anticipated Discharge: > 48 hours
Subjective/Interval History
-
Date of Service: April 05, 2024
Objective Data
-
Labs:
Laboratory Results
04/05/24
06:21
WBC 12.4 H
Hgb 13.4
Hct 40.3
Plt Count 76 L
PT 43.8 H
INR 4.63
Sodium 136
Potassium 3.4 L
Chloride 101
Carbon Dioxide 29
BUN 41 H
Creatinine 2.1 H
Glucose 130 H
Calcium 7.9 L
Total Bilirubin 0.6
AST 36
ALT 32
Alkaline Phosphatase 128 H
Vital Signs:
Vital Signs
Temp Pulse Resp BP Pulse Ox
97.7 F 61 17 126/55 96
04/05/24 15:09 04/05/24 15:09 04/05/24 15:09 04/05/24 15:09 04/05/24 15:09
I&O
04/04/24 04/05/24 04/06/24
06:59 06:59 06:59
Intake Total 480 / 480
Output Total 800 / 800 700 / 700
Balance -320 / -320 -700 / -700
Physical Exam
-
General: Well Developed and No Apparent Distress
HEENT: Normocephalic, Atraumatic and Moist Mucous Membranes
Respiratory: Clear to Auscultation
Cardiac: Regular Rhythm, S1/S2 and Murmur; Negative Rub or Gallop
GI: Soft, Nontender, Nondistended and Normal Bowel Sounds; Negative Organomegaly
Rectal: Deferred by Provider
Musculoskeletal: No Clubbing, No Cyanosis and No Edema
Skin: Negative Rash
Neuro: Awake, Alert, Oriented, AO x 3 and Nonfocal/Grossly Intact
[2024-04-05] MEDS: STERILE WATER FOR INJECTION 20 ML IV (17:09)
[2024-04-05] MEDS: ROCEPHIN 2000 MG IV (17:09)
[2024-04-05 22:16] LABS: Glucose - Point of Care 183 mg/dl (70-99)
[2024-04-05] MEDS: PEPCID 20 MG PO (23:06)
[2024-04-05] MEDS: PROSCAR 5 MG PO (23:06)
[2024-04-05] MEDS: ZETIA 10 MG PO (23:06)
[2024-04-05] MEDS: NORVASC 10 MG PO (23:07)
[2024-04-06 04:33] VITALS: BP 120/62
[2024-04-06 04:34] VITALS: BMI 25.2
[2024-04-06] MEDS: TYLENOL 650 MG PO (04:38)
[2024-04-06 07:20] VITALS: BP 118/59
[2024-04-06 07:43] LABS: Glucose - Point of Care 134 mg/dl (70-99)
[2024-04-06] MEDS: NOVOLOG FLEXPEN-LOW RESISTANCE SC (07:48)
[2024-04-06] MEDS: PULMICORT 0.5 MG INH ×2 (07:54→20:09)
[2024-04-06] MEDS: DUONEB 3 ML INH ×3 (07:54→20:09)
[2024-04-06] MEDS: THERAGRAN 1 TABLET PO (08:24)
[2024-04-06] MEDS: PROTONIX 40 MG PO ×2 (08:24→19:50)
[2024-04-06] MEDS: FARXIGA 10 MG PO (08:25)
[2024-04-06] MEDS: FEOSOL 325 MG PO (08:25)
[2024-04-06] MEDS: VISBIOME 1 CAP PO ×2 (08:25→19:50)
[2024-04-06] MEDS: FIRST-MOUTHWASH BLM SUSPENSION 5 ML PO ×4 (08:25→22:51)
[2024-04-06] MEDS: MIRALAX PO ×2 (08:25→08:27)
[2024-04-06 09:26] LABS: % Basophils 0.6 % (0-2); % Eosinophils 0.8 % (0-6); % Immature Granulocytes 1.1 % (0-0.5); % Lymphocytes 10.1 % (20.5-51.1); % Monocytes 9.3 % (1.7-9.3); % Neutrophils 78.1 % (42.2-75.2); Absolute Basophils 0.1 10^3/uL (0-0.2); Absolute Eosinophils 0.1 10^3/uL (0-0.7); Absolute Immature Granulocytes 0.1 10^3/uL (0-0.05); Absolute Monocytes 0.9 10^3/uL (0.1-0.6); Absolute Neutrophils 7.4 10^3/uL (1.4-6.5); Hematocrit 41.7 % (39.0-52.0); Hemoglobin 13.8 g/dL (13.0-18.0); Mean Corp Hgb Conc. 33.1 g/dL (33.0-37.0); Mean Corpuscular Hgb 29.1 pg (27.0-31.0); Mean Platelet Volume 12.3 fL (7.4-10.4); Nucleated Red Blood Cells % 0 % (-); Platelet Count 76 10^3/uL (130-400); Red Blood Cell Count 4.74 10^6/uL (4.70-6.10); Red Cell Dist. Width 15.5 % (11.5-14.5); White Blood Cell Count 9.5 10^3/uL (4.8-10.8)
[2024-04-06 09:27] LABS: INR 4.33; PT 41.6 Sec (11.4-14.6)
[2024-04-06 09:33] LABS: Vancomycin Random 14.9 ug/ml
[2024-04-06 10:29] LABS: ALT (SGPT) 26 U/L (0-50); AST (SGOT) 28 U/L (17-59); Albumin 2.8 g/dl (3.5-5.0); Alkaline Phosphatase 120 U/L (38-126); Blood Urea Nitrogen 34 mg/dl (9-20); Calcium 8.1 mg/dl (8.4-10.2); Carbon Dioxide 25 mmol/L (22-30); Chloride 104 mmol/L (98-107); Estimated Creatinine Clearance 38 ml/min; Glucose 143 mg/dl (70-99); Potassium 3.5 mmol/L (3.5-5.1); Sodium 138 mmol/L (135-145); Total Bilirubin 0.4 mg/dl (0.2-1.3); Total Protein 5.5 g/dl (6.3-8.2); eGFR 43.83
[2024-04-06 11:24] LABS: Glucose - Point of Care 253 mg/dl (70-99)
[2024-04-06 11:28] VITALS: BP 120/56
[2024-04-06] MEDS: NOVOLOG FLEXPEN-LOW RESISTANCE 3 UNITS SC (11:33)
--- NOTE | 2024-04-06 11:42 | CM ---
Patient seen bedside, reports no needs to CM at this time. Patient remains on antibiotics. Referral made to [facility]. CM will continue to follow for discharge planning needs.
Plan; home with VN when stable.
--- NOTE | 2024-04-06 12:20 | W.PN.ID1 ---
Date of Service
Date of Service: April 06, 2024
Today's Communication
Recommend DONTAE.
Assessment / Plan
# Strep species bacteremia
# Leukocytosis - improved
# Asymptomatic Citrobacter bacteruria - s/p fosfomycin x 1 in ED
# Presence of TAVR, ICD
# PCN allergy
- TTE: no vege
-Repeat blood cx's x2 pending
- Recommend DONTAE.
- Continue ceftriaxone
- DC VAnco
Chief Complaint
-: Bacteremia
Subjective / Review of Systems
Feels weak. Tongue soreness better.
Vital Signs / Physical Exam
Vital Signs
Vital Signs
Temp Pulse Resp BP Pulse Ox
97.5 F 66 16 120/56 94
04/06/24 11:28 04/06/24 11:28 04/06/24 11:28 04/06/24 11:28 04/06/24 11:28
Physical Exam
Constitutional: No Acute Distress
Eyes: Sclera Anicteric
Cardiovascular: Regular Rate and S1/S2
Pulmonary: Clear
Gastrointestinal: Soft and Non Tender
Genito-Urinary: Negative CVA Tenderness
Extremities: Edema (RLE chronic) and Venous Insufficiency
Neurological: AO x 3
Objective Data
Lab Data
Lab Results
04/06/24 07:51
04/06/24 07:51
PT 41.6 Sec (11.4-14.6) H 04/06/24 07:51
INR 4.33 04/06/24 07:51
Estimated Creat Clear 38 ml/min 04/06/24 07:51
Lactic Acid Cancelled 04/04/24 22:30
Total Bilirubin 0.4 mg/dl (0.2-1.3) 04/06/24 07:51
AST 28 U/L (17-59) 04/06/24 07:51
ALT 26 U/L (0-50) 04/06/24 07:51
Alkaline Phosphatase 120 U/L (38-126) 04/06/24 07:51
Most recent labs reviewed.
Micro Results:
04/04/24 18:23 Blood Culture - Preliminary
Blood/Venous Streptococcus species
Gram Stain - Final
04/04/24 18:23 Blood Culture - Preliminary
Blood/Venous Streptococcus species
Gram Stain - Final
04/04/24 17:37 Urine Culture - Final
Urine Citrobacter freundii
04/05/24 16:42 Blood Culture - Pending
Blood/Venous
04/05/24 15:16 Blood Culture - Pending
Blood/Venous
04/04/24 CXR: Slightly increased hazy opacity at the left lung base, as described. Probable increased small pleural effusion. Cannot exclude atelectasis or mild pneumonia. Slightly diminished degree of inspiration likely contributing to slight
crowding of parenchymal markings at the right lung base.
04/04/24 Peripheral venous US RLE: no DVT
Care Review
Plan reviewed with: Physician (Dr. Mathis)
--- NOTE | 2024-04-06 13:31 | CON.CAR ---
Addendum entered and electronically signed by Guerda Balbuena MD 04/06/24 16:22:
I saw and examined the patient.
The ACCOUNTS PAYABLE CLERK's note was reviewed and I agree with the note.
Comment: 78-year-old gentleman with past medical history of AF status post TA VR in 2017, permanent atrial fibrillation on warfarin with a history of amiodarone lung toxicity, CAD status post remote CABG, ischemic cardiomyopathy with improved EF to
35 to 40% status post ICD in the setting of V-fib arrest, diabetes, CKD who now has strep bacteremia and DNOTAE is being recommended by ID. Patient's was concerned that he gets food stuck. He reports that this is overstated and he has no
problems swallowing. I did reach out to Justin frye his outpatient GI doctor who reviewed his record and stated okay to proceed with DONTAE. He is currently without complaint at the bedside. He has a irregularly irregular rhythm with a normal S1-S2
no murmur rubs or gallops were appreciated lungs were clear to by lateral auscultation after coughing, extremities warm and perfused. Reviewed the indication for DONTAE with the patient he is agreeable. However INR is greater than 4 and platelets are
less than 100. Will make n.p.o. after midnight, but we will reassess his platelets and INR prior to proceeding. Will make n.p.o. after midnight. Additionally, we will resume his beta-ana as his atrial fibrillation is slightly accelerated on
telemetry in the setting of infection. Given his history of ischemic cardiomyopathy with an EF of 35 to 40%, would prefer to resume diuretic. Will follow.
Original Note:
Consultation
Consultation Request
Date/Time Consultation Requested: 04/06/24 1309
Date/Time Consultation Performed: 04/06/24 1345
Requesting Provider: Dr. Mathis
Performing Provider: Jesica SORENSON for Dr. Balbuena
Reason for Consultation: bacteremia, evaluate for DONTAE
Medical History
-
Chief Complaint: weakness, fatigue
History of Present Illness:
78 y/o male with s/p TAVR 06/2017, mild to moderate paravalvular regurgitation, permanent AFIB on warfarin, CAD s/p CABG 2000, ICM current EF 35-40% (improved 25-30% in past), chronic systolic heart failure, mild to moderate MR, VF arrest s/p ICD
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
fatigue and weakness. He has also had chills. He has had mouth blistering as well, which is improving. He is seen to have strep species bacteremia and Citrobacter bacteruria. He is on ABX. We are consulted to evaluate for cardiac cause with DONTAE in
this patient with cardiac device and hx TAVR.
Past Medical History
Past Medical History: Arrhythmias, CHF, HTN, Hypercholesterolemia, NIDDM, Renal Failure, Valvular Disease and Other (as above)
Social History
Personal:
Living: With Family
Allergies / Home Medications
Allergy/AdvReac Type Severity Reaction Status Date / Time
Penicillins Allergy Hives; Verified 04/04/24 11:39
Tolerated
Cefazolin
Oct 2021
Mialhgo-CSQ-NiK Reductase Allergy elevated Verified 04/04/24 11:39
Inhibitor liver
[Icpycqx-Iyq-Pff Reductase enzymes,
Inhibitor] 'makes me
crazY'
�Medication �Instructions �Recorded �Confirmed �Type
ezetimibe 10 mg tablet 10 mg PO HS High cholesterol 04/03/14 04/04/24 History
multivitamin with folic acid 400 1 tab PO DAILY Supplement 03/04/17 04/04/24 History
mcg tablet (Tab-A-Nicole)
holtdb-qmtejes-vdk palm-min 17 1 cap PO DAILY Supplement 10/26/18 04/04/24 History
capsule (Prostate Therapy capsule)
pantoprazole 40 mg tablet,delayed 40 mg PO BID Gastrointestinal issue 10/26/18 04/04/24 History
release
ferrous sulfate 325 mg (65 mg 325 mg PO DAILY Supplement 06/20/20 04/04/24 History
iron) tablet (FeroSul)
fish oil-dha-epa 1,200 mg-144 1 cap PO BID Supplement 06/20/20 04/04/24 History
mg-216 mg capsule
amlodipine 10 mg tablet 10 mg PO HS Blood pressure 12/02/21 04/04/24 History
budesonide 0.5 mg/2 mL suspension 0.5 mg inhalation R BID 01/23/22 04/04/24 History
for nebulization Lung/breathing issues
famotidine 40 mg tablet 40 mg PO HS Gastrointestinal issue 01/23/22 04/04/24 History
ipratropium 0.5 mg-albuterol 3 mg 3 ml inhalation R TID 01/23/22 04/04/24 History
(2.5 mg base)/3 mL nebulization Lung/breathing issues
soln
torsemide 20 mg tablet 20 mg PO BID@0800,1500 Blood 01/23/22 04/04/24 History
pressure
Lactobac no.2-Bifidobac no.1-S. 1 cap PO BID 04/04/24 04/04/24 History
thermo 112.5 billion cell capsule
(Visbiome)
dapagliflozin propanediol 10 mg 10 mg PO DAILY 04/04/24 04/04/24 History
tablet (Farxiga)
finasteride 5 mg tablet 5 mg PO HS 04/04/24 04/04/24 History
metoprolol succinate 200 mg 200 mg PO HS 04/04/24 04/04/24 History
tablet,extended release 24 hr
warfarin 2 mg tablet 4 mg PO SUTUWEFRSA 04/04/24 04/04/24 History
warfarin 2 mg tablet (Jantoven) 2 mg PO MOTH 04/04/24 04/04/24 History
Review of Systems
-
History Source: Patient and Family
All other systems: Negative unless noted
Constitutional: Fatigue and Chills
EENT: Other (mouth blistering)
Neurological: Weakness
Physical Exam
Vital Signs
Temp Pulse Resp BP Pulse Ox
97.5 F 66 16 120/56 94
04/06/24 11:28 04/06/24 11:28 04/06/24 11:28 04/06/24 11:28 04/06/24 11:28
Lab Results
04/06/24 07:51
04/06/24 07:51
Physical Exam
General: No Apparent Distress
HEENT: Normocephalic and Anicteric
Respiratory: Clear and Non Labored Respirations
Cardiac: Irregular Rhythm
Musculoskeletal: Edema (mild BLE edema)
Skin: Warm and Dry
Neuro: AO x 3
Psych: Calm
Impression / Plan
-
Strep species bacteremia:
-on IV abx, ID following
-plan for DONTAE tomorrow
Citrobacter bacteruria:
-on abx
-ID following
Permanent AFIB:
-INR supratherapeutic- warfarin held. Monitor INR daily.
-rates mildly fast- resume metoprolol 200 mg HS
s/p TAVR:
-echo this admit- Well seated TAVR with peak/mean gradients across the aortic valve are 13/8 mmHg. Mild paravalvular aortic regurgitation.
Chronic systolic heart failure:
-resume torsemide and monitor volume and labs
ICM EF 35-40%:
-resume toprol
-GDMT limited by renal function
HTN:
-stable
-monitor
hx VF arrest:
-ICD in place
-previously on amio, stopped due to lung toxicity
CAD hx CABG:
-stable no angina
Data Reviewed
-
EKG: Tracing Personally Visualized and interpreted
Radiology: Report Reviewed by me (CXR: Slightly increased hazy opacity at the left lung base. Probable increased small pleural effusion. Cannot exclude atelectasis or mild pneumonia. Slightly diminished degree of inspiration likely contributing to
slight crowding of parenchymal markings at the right lung base.)
Medical Tests (Nuc Med, Echo etc): Report Reviewed by me (Echo: Ejection fraction is 35-40%, global hypokinesis, with the inferior and inferoseptum more severely hypokinetic. Well seated TAVR with peak/mean gradients across the aortic valve are 13/8
mmHg. Mild paravalvular aortic regurgitation. )
Labs: Labs Reviewed by me
[2024-04-06] MEDS: ROBITUSSIN AC 5 ML PO (14:06)
[2024-04-06 15:28] VITALS: BP 117/63
[2024-04-06 16:32] LABS: Glucose - Point of Care 234 mg/dl (70-99)
--- NOTE | 2024-04-06 16:41 | W.PN.HOSP.TC ---
Today's Communication/Plan
-
IV antibiotics
DONTAE
Blood culture for clearance.
Hold Coumadin following INR
Assessment / Plan
Assessment / Plan
Impression:
Presentation with generalized fatigue, chills
Gram-positive cocci in pairs/chains bacteremia
Leukocytosis
Asymptomatic bacteriuria
Coumadin-induced coagulopathy
Conditions prior to admission:
Chronic CHF reduced EF.
Ischemic cardiomyopathy
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
Aortic stenosis status post TAVR
Moderate to severe MR
Hypertension
Paroxysmal atrial fibrillation
Anticoagulation with Coumadin
History of MSSA bacteremia treated with prolonged IV antibiotics
CKD stage III baseline creatinine 2.1
Plan
Stated the global bacteremia
Echocardiogram unremarkable
Repeat blood culture for clearance.
Antibiotics status post ceftriaxone given in the emergency room.
Antibiotics narrowed from vancomycin and ceftriaxone to ceftriaxone alone.
DONTAE tentatively on 04/07
Asymptomatic bacteriuria. Final urine cultures pending
Chronic urine retention requiring self-catheterization
Teach self-catheterization technique
Status post single dose of fosfomycin on admission
Stomatitis/oral ulcers
Continue Magic mouthwash
Reported epistaxis at home no recurrence since admission.
Paroxysmal atrial fibrillation.
Rate control with metoprolol.
Anticoagulation with Coumadin. INR above 4. Hold and follow-up INR in AM. Adjust dose accordingly to
History of V-fib status post AICD.
Continue amiodarone.
CAD with history of CABG.
Ischemic cardiomyopathy with LVEF of 30%.
Continue aspirin.
Resume torsemide. Monitor of volume status closely.
Continue Farxiga
Essential hypertension
Continue amlodipine
Type 2 diabetes by history
Check hemoglobin A1c
Continue Farxiga
CKD stage III.
Baseline creatinine around 2.
Monitor closely.
Continue Farxiga.
CODE STATUS DNR
Anticipated Discharge: > 48 hours
Subjective/Interval History
-
Date of Service: April 06, 2024
Objective Data
-
Labs:
Laboratory Results
04/06/24
07:51
WBC 9.5
Hgb 13.8
Hct 41.7
Plt Count 76 L
PT 41.6 H
INR 4.33
Sodium 138
Potassium 3.5
Chloride 104
Carbon Dioxide 25
BUN 34 H
Creatinine 1.6 H
Glucose 143 H
Calcium 8.1 L
Total Bilirubin 0.4
AST 28
ALT 26
Alkaline Phosphatase 120
Vital Signs:
Vital Signs
Temp Pulse Resp BP Pulse Ox
97.7 F 68 20 117/63 91
04/06/24 15:28 04/06/24 15:28 04/06/24 15:28 04/06/24 15:28 04/06/24 15:28
I&O
04/05/24 04/06/24 04/07/24
06:59 06:59 06:59
Intake Total 480 / 480 1740 / 1740
Output Total 800 / 800 1650 / 1650 400 / 400
Balance -320 / -320 90 / 90 -400 / -400
Physical Exam
-
General: Well Developed and No Apparent Distress
HEENT: Normocephalic, Atraumatic and Moist Mucous Membranes
Respiratory: Clear to Auscultation
Cardiac: Regular Rhythm and S1/S2; Negative Murmur, Rub or Gallop
GI: Soft, Nontender, Nondistended and Normal Bowel Sounds; Negative Organomegaly
Rectal: Deferred by Provider
Musculoskeletal: No Clubbing, No Cyanosis and No Edema
Skin: Negative Rash
Neuro: Nonfocal/Grossly Intact
[2024-04-06] MEDS: NOVOLOG FLEXPEN-LOW RESISTANCE 2 UNITS SC (17:01)
[2024-04-06] MEDS: ROCEPHIN 2000 MG IV (17:02)
[2024-04-06] MEDS: STERILE WATER FOR INJECTION 20 ML IV (17:02)
[2024-04-06] MEDS: TOPROL XL 200 MG PO (17:02)
[2024-04-06 20:01] VITALS: BP 138/69
[2024-04-06 21:48] LABS: Glucose - Point of Care 204 mg/dl (70-99)
[2024-04-06] MEDS: NORVASC 10 MG PO (22:51)
[2024-04-06] MEDS: PROSCAR 5 MG PO (22:51)
[2024-04-06] MEDS: ZETIA 10 MG PO (22:51)
[2024-04-06 23:14] VITALS: BP 163/76
[2024-04-07] MEDS: TYLENOL 650 MG PO (02:43)
[2024-04-07 03:52] VITALS: BP 149/76
[2024-04-07 05:26] VITALS: BMI 25.4
[2024-04-07 05:58] LABS: Glucose - Point of Care 141 mg/dl (70-99)
[2024-04-07] MEDS: PULMICORT 0.5 MG INH ×2 (07:17→20:15)
[2024-04-07] MEDS: DUONEB 3 ML INH ×3 (07:17→20:15)
[2024-04-07 07:25] VITALS: BP 125/75
[2024-04-07 08:21] LABS: % Basophils 0.6 % (0-2); % Eosinophils 1.1 % (0-6); % Immature Granulocytes 1.8 % (0-0.5); % Lymphocytes 9.4 % (20.5-51.1); % Monocytes 7.7 % (1.7-9.3); % Neutrophils 79.4 % (42.2-75.2); Absolute Basophils 0.1 10^3/uL (0-0.2); Absolute Eosinophils 0.1 10^3/uL (0-0.7); Absolute Immature Granulocytes 0.2 10^3/uL (0-0.05); Absolute Monocytes 0.8 10^3/uL (0.1-0.6); Absolute Neutrophils 8.7 10^3/uL (1.4-6.5); Hematocrit 41.2 % (39.0-52.0); Hemoglobin 13.5 g/dL (13.0-18.0); Mean Corp Hgb Conc. 32.8 g/dL (33.0-37.0); Mean Corpuscular Hgb 29.1 pg (27.0-31.0); Mean Corpuscular Volume 88.8 fL (80.0-94.0); Mean Platelet Volume 12.7 fL (7.4-10.4); Nucleated Red Blood Cells % 0 % (-); Platelet Count 86 10^3/uL (130-400); Red Blood Cell Count 4.64 10^6/uL (4.70-6.10); Red Cell Dist. Width 15.9 % (11.5-14.5); White Blood Cell Count 10.9 10^3/uL (4.8-10.8)
[2024-04-07 08:30] LABS: INR 3.62; PT 36.1 Sec (11.4-14.6)
[2024-04-07 08:41] LABS: ALT (SGPT) 30 U/L (0-50); AST (SGOT) 39 U/L (17-59); Albumin 2.7 g/dl (3.5-5.0); Alkaline Phosphatase 132 U/L (38-126); Blood Urea Nitrogen 28 mg/dl (9-20); Calcium 8.2 mg/dl (8.4-10.2); Carbon Dioxide 25 mmol/L (22-30); Chloride 109 mmol/L (98-107); Estimated Creatinine Clearance 43 ml/min; Glucose 143 mg/dl (70-99); Potassium 3.9 mmol/L (3.5-5.1); Sodium 139 mmol/L (135-145); Total Bilirubin 0.4 mg/dl (0.2-1.3); Total Protein 5.5 g/dl (6.3-8.2); eGFR 51.45
[2024-04-07] MEDS: DEMADEX 20 MG PO ×2 (08:46→15:06)
[2024-04-07] MEDS: FARXIGA 10 MG PO (08:46)
[2024-04-07] MEDS: THERAGRAN 1 TABLET PO (08:46)
[2024-04-07] MEDS: VISBIOME 1 CAP PO ×2 (08:46→20:35)
[2024-04-07] MEDS: FIRST-MOUTHWASH BLM SUSPENSION 5 ML PO ×4 (08:46→20:35)
[2024-04-07] MEDS: PROTONIX 40 MG PO ×2 (08:46→20:35)
[2024-04-07] MEDS: FEOSOL 325 MG PO (08:46)
[2024-04-07] MEDS: MIRALAX PO (08:51)
--- NOTE | 2024-04-07 10:41 | PN.CDI ---
CDI
- -
CDI:
Physician Documentation Request
Admit Date: 04/04/24 19:41
Dear Doctor Del,
Please review the following and provide your response in the progress notes.
Clinical Indicators:
Pt admitted with Bacteremia and UTI
04/04 H&P: 'persistent atrial fibrillation on Coumadin.'
04/05 Hospitalist PN: 'Paroxysmal atrial fibrillation.'
04/06 Cardiology note: 'Permanent AFIB.'
In attempt to clarify potentially conflicting documentation, please clarify the type of Afib
Paroxysmal atrial fibrillation - terminates spontaneously or with intervention within 7 days of onset
Persistent atrial fibrillation - episodes of continuous AF that last more than 7 days and do not self-terminate
Permanent atrial fibrillation - when a decision has been made to accept the presence of AF and there is no further attempt to restore or maintain sinus rhythm
Other - please specify
Use of terms such as suspected, likely, concern for, or probable (associated with a specific diagnosis that is being evaluated, monitored, or treated as if it exists) are acceptable and can be coded in the inpatient setting, when documented at the
time of discharge.
Thank you,
Natacha Colvin RN, BSN
CDI Specialist
Available via [employer]
Please use your independent medical judgment in providing your response.
[2024-04-07 11:32] VITALS: BP 137/76
[2024-04-07 12:24] LABS: Glucose - Point of Care 276 mg/dl (70-99)
[2024-04-07] MEDS: NOVOLOG FLEXPEN-LOW RESISTANCE 3 UNITS SC (12:45)
--- NOTE | 2024-04-07 12:47 | W.PN.CD ---
Addendum entered and electronically signed by Konstantin Sanders MD 04/07/24 17:45:
please call us with questions over the weekend
Original Note:
Today's Communication / Plan
-
hold coumadin to target INR 2-3
DONTAE Wednesday as long as INR no longer supratherapeutic
Impression / Plan
-
Strep bovis bacteremia: in setting of TAVR
-Bcx +04/04, neg so far on 04/05
-on IV abx, ID following
-plan for DONTAE Wednesday
-waiting for INR to trend down (currently supratherapeutic)
Citrobacter bacteruria:
-on abx
-ID following
Permanent AFIB:
-INR supratherapeutic- warfarin held. Monitor INR daily.
-rate control: continue metoprolol 200 mg HS
s/p TAVR:
-echo this admit- EF 35-40%. Well seated TAVR with peak/mean gradients across the aortic valve are 13/8 mmHg. Mild paravalvular aortic regurgitation.
Chronic systolic heart failure:
-seems euvolemic at 77-78kg
-cont torsemide 20mg bid
ICM EF 35-40%:
-cont Toprol XL and Farxiga
-GDMT limited by renal function in past (CKD4, although Cr seems to be improving)
HTN:
-stable
-monitor
hx VF arrest:
-ICD in place
-previously on amio, stopped due to lung toxicity
CAD hx CABG:
-stable no angina
Physical Exam
Vital Signs/Labs
Vital Signs
Temp Pulse Resp BP Pulse Ox
98 F 56 16 137/76 96
04/07/24 11:32 04/07/24 11:32 04/07/24 11:32 04/07/24 11:32 04/07/24 11:32
04/06/24 04/07/24 04/08/24
06:59 06:59 06:59
Actual Weight 77.337 kg 78.046 kg
04/07/24 08:02
04/07/24 08:02
PT 36.1 Sec (11.4-14.6) H 04/07/24 08:02
INR 3.62 04/07/24 08:02
Physical Exam
Constitutional: No acute distress and Comfortable
EENT: Moist mucous membranes
Cardiovascular: Pedal edema is absent, Rhythm/rate is irregular, JVD present and Systolic murmur present
Respiratory: Respiratory effort normal, Lungs clear to auscul. and Wheeze Absent
GI: Soft and Distention absent
Neuro/Psych: AO x 3
Data Reviewed
-
Date of Service: April 07, 2024
EKG: Other (Tele: Afib, avg 70s)
Echo: Report Reviewed by me
Labs: Labs Reviewed by me
[2024-04-07 15:14] VITALS: BP 138/64
--- NOTE | 2024-04-07 15:15 | CM ---
Patient seen bedside with . Per Cardiology note, DONTAE scheduled for Wednesday. CM will continue to follow for discharge planning needs.
Plan; home with [facility] when medically stable.
--- NOTE | 2024-04-07 15:21 | W.PN.HOSP.TC ---
Today's Communication/Plan
-
IV antibiotics pending blood culture clearance.
Hold Coumadin awaiting INR to drift pending DONTAE tentatively on Tuesday 04/10.
Assessment / Plan
Assessment / Plan
Impression:
Presentation with generalized fatigue, chills
Gram-positive cocci in pairs/chains bacteremia
Leukocytosis
Asymptomatic bacteriuria
Coumadin-induced coagulopathy
Conditions prior to admission:
Chronic CHF reduced EF.
Ischemic cardiomyopathy
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
Aortic stenosis status post TAVR
Moderate to severe MR
Hypertension
Paroxysmal atrial fibrillation
Anticoagulation with Coumadin
History of MSSA bacteremia treated with prolonged IV antibiotics
CKD stage III baseline creatinine 2.1
Plan
Stated the global bacteremia
Echocardiogram unremarkable
Repeat blood culture for clearance.
Antibiotics status post ceftriaxone given in the emergency room.
Antibiotics narrowed from vancomycin and ceftriaxone to ceftriaxone alone.
DONTAE tentatively on 04/07
Asymptomatic bacteriuria. Final urine cultures pending
Chronic urine retention requiring self-catheterization
Teach self-catheterization technique
Status post single dose of fosfomycin on admission
Stomatitis/oral ulcers
Continue Magic mouthwash
Reported epistaxis at home no recurrence since admission.
Paroxysmal atrial fibrillation.
Rate control with metoprolol.
Anticoagulation with Coumadin. INR above 4. Hold and follow-up INR in AM. Adjust dose accordingly to
History of V-fib status post AICD.
Continue amiodarone.
CAD with history of CABG.
Ischemic cardiomyopathy with LVEF of 30%.
Continue aspirin.
Resume torsemide. Monitor of volume status closely.
Continue Farxiga
Essential hypertension
Continue amlodipine
Type 2 diabetes by history
Hemoglobin A1c 7.7
Continue Farxiga
CKD stage II-III
Baseline creatinine 1.5�2. Improving down to 1.4 while on torsemide
Monitor closely.
Continue Farxiga.
CODE STATUS DNR
Anticipated Discharge: > 48 hours
Subjective/Interval History
-
Date of Service: April 07, 2024
Objective Data
-
Labs:
Laboratory Results
04/07/24
08:02
WBC 10.9 H
Hgb 13.5
Hct 41.2
Plt Count 86 L
PT 36.1 H
INR 3.62
Sodium 139
Potassium 3.9
Chloride 109 H
Carbon Dioxide 25
BUN 28 H
Creatinine 1.4 H
Glucose 143 H
Calcium 8.2 L
Total Bilirubin 0.4
AST 39
ALT 30
Alkaline Phosphatase 132 H
Vital Signs:
Vital Signs
Temp Pulse Resp BP Pulse Ox
98 F 67 16 137/76 94
04/07/24 11:32 04/07/24 14:11 04/07/24 14:11 04/07/24 11:32 04/07/24 14:11
I&O
04/06/24 04/07/24 04/08/24
06:59 06:59 06:59
Intake Total 1740 / 1740 720 / 720
Output Total 1650 / 1650 1450 / 1450 800 / 800
Balance 90 / 90 -730 / -730 -800 / -800
Physical Exam
-
General: Well Developed and No Apparent Distress
HEENT: Normocephalic, Atraumatic and Moist Mucous Membranes
Respiratory: Clear to Auscultation
Cardiac: Regular Rhythm and S1/S2; Negative Murmur, Rub or Gallop
GI: Soft, Nontender, Nondistended and Normal Bowel Sounds; Negative Organomegaly
Rectal: Deferred by Provider
Musculoskeletal: No Clubbing, No Cyanosis and No Edema
Skin: Negative Rash
Neuro: Nonfocal/Grossly Intact
[2024-04-07] MEDS: ROBITUSSIN AC 5 ML PO (16:20)
--- NOTE | 2024-04-07 16:20 | W.PN.ID1 ---
Date of Service
Date of Service: April 07, 2024
Today's Communication
continue ceftriaxone
ct with oral contrast
consider colonoscopy/egd
Assessment / Plan
# S bovis bacteremia
# Leukocytosis - improved
# Asymptomatic Citrobacter bacteruria - s/p fosfomycin x 1 in ED
# Presence of TAVR, ICD
# PCN allergy
- repeat blood cultures no growth to date
- TTE: no vege; DONTAE is planned wednesday
- CT a/p with oral contrast ordered
- last colonoscopy was 2018, could consider colonoscopy/EGD if patient agreeable - I have broached the subject and he will consider it
- Continue ceftriaxone
- follow clinically
Chief Complaint
-: Bacteremia
Subjective / Review of Systems
afebrile
bp stable
minimal leukocytosis, L shift persists
cr stable
repeat blood cultures no growth to date
Vital Signs / Physical Exam
Vital Signs
Vital Signs
Temp Pulse Resp BP Pulse Ox
98 F 67 16 137/76 94
04/07/24 11:32 04/07/24 14:11 04/07/24 14:11 04/07/24 11:32 04/07/24 14:11
Physical Exam
Constitutional: No Acute Distress
Cardiovascular: Regular Rate and S1/S2; Negative Murmur or Rub
Pulmonary: Clear and Symmetric; Negative Wheezes or Rales
Gastrointestinal: Soft, Non Tender, Non Distended and Normal Bowel Sounds
Skin: Warm and Dry; Negative Rash or Jaundice
Neurological: Awake
Objective Data
Lab Data
Lab Results
04/07/24 08:02
04/07/24 08:02
PT 36.1 Sec (11.4-14.6) H 04/07/24 08:02
INR 3.62 04/07/24 08:02
Estimated Creat Clear 43 ml/min 04/07/24 08:02
Lactic Acid Cancelled 04/04/24 22:30
Total Bilirubin 0.4 mg/dl (0.2-1.3) 04/07/24 08:02
AST 39 U/L (17-59) 04/07/24 08:02
ALT 30 U/L (0-50) 04/07/24 08:02
Alkaline Phosphatase 132 U/L (38-126) H 04/07/24 08:02
Most recent labs reviewed.
Micro Results:
04/05/24 15:16 Blood Culture - Preliminary
Blood/Venous No Growth in 48 hours- Final report to follow
04/04/24 18:23 Blood Culture - Final
Blood/Venous Streptococcus bovis
Gram Stain - Final
04/04/24 18:23 Blood Culture - Final
Blood/Venous Streptococcus bovis
Gram Stain - Final
04/07/24 08:02 Blood Culture - Pending
Blood/Venous
04/05/24 16:42 Blood Culture - Preliminary
Blood/Venous No Growth in 24 hours- Final report to follow
04/04/24 17:37 Urine Culture - Final
Urine Citrobacter freundii
04/04/24 CXR: Slightly increased hazy opacity at the left lung base, as described. Probable increased small pleural effusion. Cannot exclude atelectasis or mild pneumonia. Slightly diminished degree of inspiration likely contributing to slight
crowding of parenchymal markings at the right lung base.
04/04/24 Peripheral venous US RLE: no DVT
[2024-04-07] MEDS: OMNIPAQUE 50 ML PO (16:41)
[2024-04-07 16:44] LABS: Glucose - Point of Care 209 mg/dl (70-99)
[2024-04-07] MEDS: NOVOLOG FLEXPEN-LOW RESISTANCE 2 UNITS SC (17:22)
[2024-04-07] MEDS: ROCEPHIN 2000 MG IV (17:23)
[2024-04-07] MEDS: TOPROL XL 200 MG PO (17:23)
[2024-04-07] MEDS: STERILE WATER FOR INJECTION 20 ML IV (17:23)
[2024-04-07 20:23] VITALS: BP 142/72
[2024-04-07] MEDS: PEPCID 20 MG PO (21:04)
[2024-04-07] MEDS: ZETIA 10 MG PO (21:04)
[2024-04-07] MEDS: PROSCAR 5 MG PO (21:05)
[2024-04-07] MEDS: NORVASC 10 MG PO (21:05)
[2024-04-07 21:27] LABS: Glucose - Point of Care 161 mg/dl (70-99)
[2024-04-07 23:11] VITALS: BP 131/69
[2024-04-08] VITALS (7 sets, daily range): BP systolic 110–133; BP diastolic 57–75; PULSE 68; BMI 25.4
[2024-04-08 07:17] LABS: % Basophils 0.6 % (0-2); % Eosinophils 0.7 % (0-6); % Immature Granulocytes 1.9 % (0-0.5); % Lymphocytes 7.4 % (20.5-51.1); % Monocytes 6.9 % (1.7-9.3); % Neutrophils 82.5 % (42.2-75.2); Absolute Basophils 0.1 10^3/uL (0-0.2); Absolute Eosinophils 0.1 10^3/uL (0-0.7); Absolute Immature Granulocytes 0.3 10^3/uL (0-0.05); Absolute Monocytes 0.9 10^3/uL (0.1-0.6); Absolute Neutrophils 11.1 10^3/uL (1.4-6.5); Hematocrit 41.5 % (39.0-52.0); Hemoglobin 13.9 g/dL (13.0-18.0); Mean Corp Hgb Conc. 33.5 g/dL (33.0-37.0); Mean Corpuscular Hgb 29.3 pg (27.0-31.0); Mean Corpuscular Volume 87.4 fL (80.0-94.0); Mean Platelet Volume 11.8 fL (7.4-10.4); Nucleated Red Blood Cells % 0 % (-); Platelet Count 92 10^3/uL (130-400); Red Blood Cell Count 4.75 10^6/uL (4.70-6.10); Red Cell Dist. Width 15.9 % (11.5-14.5); White Blood Cell Count 13.4 10^3/uL (4.8-10.8)
[2024-04-08 07:18] LABS: INR 2.91; PT 30.4 Sec (11.4-14.6)
[2024-04-08] MEDS: PULMICORT 0.5 MG INH ×2 (07:19→18:54)
[2024-04-08] MEDS: DUONEB 3 ML INH ×3 (07:19→18:54)
[2024-04-08 07:37] LABS: Glucose - Point of Care 168 mg/dl (70-99)
[2024-04-08 07:39] LABS: Blood Urea Nitrogen 30 mg/dl (9-20); Calcium 8.1 mg/dl (8.4-10.2); Carbon Dioxide 26 mmol/L (22-30); Chloride 105 mmol/L (98-107); Estimated Creatinine Clearance 41 ml/min; Glucose 130 mg/dl (70-99); Potassium 4.1 mmol/L (3.5-5.1); Sodium 140 mmol/L (135-145); eGFR 47.36
[2024-04-08] MEDS: MIRALAX 17 GRAMS PO (08:09)
[2024-04-08] MEDS: FEOSOL 325 MG PO (08:09)
[2024-04-08] MEDS: NOVOLOG FLEXPEN-LOW RESISTANCE 1 UNITS SC (08:09)
[2024-04-08] MEDS: FARXIGA 10 MG PO (08:09)
[2024-04-08] MEDS: PROTONIX 40 MG PO ×2 (08:09→20:31)
[2024-04-08] MEDS: FIRST-MOUTHWASH BLM SUSPENSION 5 ML PO ×4 (08:10→21:27)
[2024-04-08] MEDS: THERAGRAN 1 TABLET PO (08:10)
[2024-04-08] MEDS: VISBIOME 1 CAP PO ×2 (08:10→20:31)
[2024-04-08] MEDS: DEMADEX 20 MG PO ×2 (08:11→15:42)
--- NOTE | 2024-04-08 11:14 | W.PN.ID1 ---
Date of Service
Date of Service: April 08, 2024
Today's Communication
Continue antibiotics
Assessment / Plan
# S. bovis bacteremia
# Leukocytosis - improved
# Asymptomatic Citrobacter bacteruria - s/p fosfomycin x 1 in ED
# Presence of TAVR, ICD
# PCN allergy
- repeat blood cultures no growth to date
- TTE: no vege; DONTAE is planned Wednesday
- CT a/p with oral contrast ordered
- last colonoscopy was 2019. Counseled patient on need for colonoscopy.
- Continue ceftriaxone
- follow clinically
Chief Complaint
-: Bacteremia
Subjective / Review of Systems
Review of Systems: No Fever, No Chills and No Abdominal Pain
Vital Signs / Physical Exam
Vital Signs
Vital Signs
Temp Pulse Resp BP Pulse Ox
98.3 F 74 18 122/69 98
04/08/24 07:00 04/08/24 08:11 04/08/24 07:21 04/08/24 08:11 04/08/24 08:10
Physical Exam
Constitutional: No Acute Distress, Comfortable, Chronically Ill and Non-toxic
Eyes: No Conjunctival Hemorrhage and Sclera Anicteric
Cardiovascular: S1/S2; Negative S3/S4
Pulmonary: Non Labored
Gastrointestinal: Non Distended and Normal Bowel Sounds
Extremities: Negative Splinter Hemorrhage or Jan[place]ay Lesions
Neurological: Awake and Alert
Psychological: Calm
Objective Data
Lab Data
Lab Results
04/08/24 06:11
04/08/24 06:11
PT 30.4 Sec (11.4-14.6) H 04/08/24 06:11
INR 2.91 04/08/24 06:11
Estimated Creat Clear 41 ml/min 04/08/24 06:11
Lactic Acid Cancelled 04/04/24 22:30
Total Bilirubin 0.4 mg/dl (0.2-1.3) 04/07/24 08:02
AST 39 U/L (17-59) 04/07/24 08:02
ALT 30 U/L (0-50) 04/07/24 08:02
Alkaline Phosphatase 132 U/L (38-126) H 04/07/24 08:02
Most recent labs reviewed.
Micro Results:
04/07/24 08:02 Blood Culture - Preliminary
Blood/Venous No Growth in 24 hours- Final report to follow
04/05/24 16:42 Blood Culture - Preliminary
Blood/Venous No Growth in 48 hours- Final report to follow
04/05/24 15:16 Blood Culture - Preliminary
Blood/Venous No Growth in 48 hours- Final report to follow
04/04/24 18:23 Blood Culture - Final
Blood/Venous Streptococcus bovis
Gram Stain - Final
04/04/24 18:23 Blood Culture - Final
Blood/Venous Streptococcus bovis
Gram Stain - Final
04/04/24 17:37 Urine Culture - Final
Urine Citrobacter freundii
Blood Culture Final 04/04/24
Streptococcus bovis Group
(Now classified as Streptococcus gallolyticus)
Organism 1 Streptococcus bovis
1. Streptococcus bovis
M.I.C. RX
--------- ---
Levofloxacin 2 S
Vancomycin 0.5 S
Imaging:
04/07/2024 CT abdomen/pelvis with oral contrast: Severely distended gallbladder containing gallstones. Moderate chronic bilateral renal disease. Large amount of fecal material in the proximal colon. Small to moderate loculated pleural effusion in
the inferior left hemithorax with a surrounding smooth rim of pleural thickening suspicious for empyema. Adjacent moderate subpleural airspace consolidation in the left lower lobe suggesting left lower lobe pneumonia.
04/04/24 CXR: Slightly increased hazy opacity at the left lung base, as described. Probable increased small pleural effusion. Cannot exclude atelectasis or mild pneumonia. Slightly diminished degree of inspiration likely contributing to slight
crowding of parenchymal markings at the right lung base.
04/04/24 Peripheral venous US RLE: no DVT
[2024-04-08 11:49] LABS: Glucose - Point of Care 228 mg/dl (70-99)
[2024-04-08] MEDS: NOVOLOG FLEXPEN-LOW RESISTANCE 2 UNITS SC ×2 (12:41→16:52)
[2024-04-08 16:51] LABS: Glucose - Point of Care 210 mg/dl (70-99)
--- NOTE | 2024-04-08 16:55 | W.PN.HOSP.TC ---
Today's Communication/Plan
-
IV antibiotics
[facility] consultation for left thoracentesis possible chest tube placement if feasible.
Hold Coumadin leading INR drift down for pending DONTAE on Wednesday.
Speech and swallow evaluation.
Assessment / Plan
Assessment / Plan
Impression:
Presentation with generalized fatigue, chills
Streptococcal bovis bacteremia.
Left pleural effusion
Asymptomatic bacteriuria
Coumadin-induced coagulopathy
Conditions prior to admission:
Chronic CHF reduced EF.
Ischemic cardiomyopathy
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
Aortic stenosis status post TAVR
Moderate to severe MR
Hypertension
Permanent atrial fibrillation
Anticoagulation with Coumadin
History of MSSA bacteremia treated with prolonged IV antibiotics
CKD stage III baseline creatinine 2.1
Obstructive sleep apnea on CPAP at night
Plan
Streptococcus bovis bacteremia
Echocardiogram unremarkable
Repeat blood culture for clearance negative to date
Antibiotics status post ceftriaxone given in the emergency room.
Antibiotics narrowed from vancomycin and ceftriaxone to ceftriaxone alone.
DONTAE tentatively on 04/10 after INR drifting down
Further workup for cause of strep bovis bacteremia with CT scan of the abdomen pelvis reveals significant left pleural effusion with possible loculation.
Stable respiratory status.
Patient with prior history of aspiration. There is a reasonable concern for silent aspiration as a cause of infected pleural effusion.
Check speech and swallow relation with consideration of VSE.
Interventional radiology consultation for ultrasound and possible left thoracentesis. Orders in place.
In addition asymptomatic cholelithiasis visible on CT scan. In lieu of stable bovis bacteremia would consider further evaluation with HIDA.
Asymptomatic bacteriuria. Final urine cultures pending
Chronic urine retention requiring self-catheterization
Teach self-catheterization technique
Status post single dose of fosfomycin on admission
Stomatitis/oral ulcers
Continue Magic mouthwash
Reported epistaxis at home no recurrence since admission.
Permanent atrial fibrillation.
Rate control with metoprolol.
Anticoagulation with Coumadin. INR above 4 on admission. Imaging has been on hold since admission letting INR drift down for pending DONTAE
History of V-fib status post AICD.
Continue amiodarone.
CAD with history of CABG.
Ischemic cardiomyopathy with LVEF of 30%.
Continue aspirin.
Resume torsemide. Monitor of volume status closely.
Continue Farxiga
Obstructive sleep apnea on CPAP at night.
Essential hypertension
Continue amlodipine
Type 2 diabetes by history
Hemoglobin A1c 7.7
Continue Farxiga
CKD stage II-III
Baseline creatinine 1.5�2. Improving down to 1.4 while on torsemide
Monitor closely.
Continue Farxiga.
CODE STATUS DNR
Anticipated Discharge: > 48 hours
Subjective/Interval History
-
Date of Service: April 08, 2024
Objective Data
-
Labs:
Laboratory Results
04/08/24
06:11
WBC 13.4 H
Hgb 13.9
Hct 41.5
Plt Count 92 L
PT 30.4 H
INR 2.91
Sodium 140
Potassium 4.1
Chloride 105
Carbon Dioxide 26
BUN 30 H
Creatinine 1.5 H
Glucose 130 H
Calcium 8.1 L
Vital Signs:
Vital Signs
Temp Pulse Resp BP Pulse Ox
97.6 F 64 18 128/64 95
04/08/24 15:00 04/08/24 15:42 04/08/24 15:00 04/08/24 15:42 04/08/24 15:00
I&O
04/07/24 04/08/24 04/09/24
06:59 06:59 06:59
Intake Total 720 / 720 1260 / 1260
Output Total 1450 / 1450 1600 / 1600 1150 / 1150
Balance -730 / -730 -340 / -340 -1150 / -1150
Physical Exam
-
General: Well Developed and No Apparent Distress
HEENT: Normocephalic, Atraumatic and Moist Mucous Membranes
Respiratory: Clear to Auscultation
Cardiac: Regular Rhythm and S1/S2; Negative Murmur, Rub or Gallop
GI: Soft, Nontender, Nondistended and Normal Bowel Sounds; Negative Organomegaly
Rectal: Deferred by Provider
Musculoskeletal: No Clubbing, No Cyanosis and No Edema
Skin: Negative Rash
Neuro: Nonfocal/Grossly Intact
[2024-04-08] MEDS: TOPROL XL 200 MG PO (17:19)
[2024-04-08] MEDS: STERILE WATER FOR INJECTION 20 ML IV (17:20)
[2024-04-08] MEDS: ROCEPHIN 2000 MG IV (17:20)
[2024-04-08] MEDS: ZETIA 10 MG PO (21:28)
[2024-04-08] MEDS: MELATONIN 5 MG PO (21:28)
[2024-04-08] MEDS: PROSCAR 5 MG PO (21:28)
[2024-04-08] MEDS: NORVASC 10 MG PO (21:28)
[2024-04-09] VITALS (7 sets, daily range): BP systolic 71–128; BP diastolic 62–76; BMI 25.3
[2024-04-09 00:32] LABS: Glucose - Point of Care 170 mg/dl (70-99)
[2024-04-09 07:47] LABS: Glucose - Point of Care 158 mg/dl (70-99)
[2024-04-09 07:50] LABS: INR 2.48; PT 26.8 Sec (11.4-14.6)
[2024-04-09 07:55] LABS: % Basophils 0.8 % (0-2); % Eosinophils 0.7 % (0-6); % Immature Granulocytes 2.4 % (0-0.5); % Lymphocytes 7.7 % (20.5-51.1); % Neutrophils 82.4 % (42.2-75.2); Absolute Basophils 0.1 10^3/uL (0-0.2); Absolute Eosinophils 0.1 10^3/uL (0-0.7); Absolute Immature Granulocytes 0.3 10^3/uL (0-0.05); Absolute Monocytes 0.7 10^3/uL (0.1-0.6); Absolute Neutrophils 10.2 10^3/uL (1.4-6.5); Hemoglobin 13.9 g/dL (13.0-18.0); Mean Corp Hgb Conc. 33.1 g/dL (33.0-37.0); Mean Corpuscular Hgb 29.1 pg (27.0-31.0); Mean Corpuscular Volume 88.1 fL (80.0-94.0); Mean Platelet Volume 12.8 fL (7.4-10.4); Nucleated Red Blood Cells % 0 % (-); Platelet Count 92 10^3/uL (130-400); Red Blood Cell Count 4.77 10^6/uL (4.70-6.10); Red Cell Dist. Width 16.1 % (11.5-14.5); White Blood Cell Count 12.4 10^3/uL (4.8-10.8)
[2024-04-09 08:10] LABS: Blood Urea Nitrogen 34 mg/dl (9-20); Calcium 8.2 mg/dl (8.4-10.2); Carbon Dioxide 26 mmol/L (22-30); Chloride 107 mmol/L (98-107); Estimated Creatinine Clearance 41 ml/min; Glucose 150 mg/dl (70-99); Potassium 3.9 mmol/L (3.5-5.1); Sodium 141 mmol/L (135-145); eGFR 47.36
[2024-04-09] MEDS: PROTONIX 40 MG PO ×2 (09:48→21:21)
[2024-04-09] MEDS: DEMADEX 20 MG PO ×2 (09:49→16:10)
[2024-04-09] MEDS: VISBIOME 1 CAP PO ×2 (09:49→21:21)
[2024-04-09] MEDS: FARXIGA 10 MG PO (09:49)
[2024-04-09] MEDS: THERAGRAN 1 TABLET PO (09:49)
[2024-04-09] MEDS: FEOSOL 325 MG PO (09:50)
[2024-04-09] MEDS: FIRST-MOUTHWASH BLM SUSPENSION 5 ML PO ×4 (09:50→21:21)
[2024-04-09] MEDS: MIRALAX 17 GRAMS PO (09:51)
[2024-04-09] MEDS: NOVOLOG FLEXPEN-LOW RESISTANCE 300 UNITS SC (09:52)
[2024-04-09 11:36] LABS: Body Fluid pH 7.38
[2024-04-09 12:00] LABS: Body Fluid Glucose 171 mg/dl; Body Fluid LDH 407 U/L; Body Fluid Protein 2.3 g/dl
[2024-04-09 12:11] LABS: Body Fluid Mononuclear 59.2 %; Body Fluid Polymorphonuclear 40.8 %; Body Fluid WBC 1469 /CUMM
[2024-04-09 12:19] LABS: Body Fluid Second Tech CS
[2024-04-09 12:25] LABS: Glucose - Point of Care 182 mg/dl (70-99)
--- NOTE | 2024-04-09 12:37 | W.PN.HOSP.TC ---
Today's Communication/Plan
-
consult GI
cont abx
DONTAE possible Wednesday but INR 2.48....will defer to cards
apprec all consultants
Assessment / Plan
Assessment / Plan
Impression:
Presentation with generalized fatigue, chills
Streptococcal bovis bacteremia.
Left pleural effusion
Asymptomatic bacteriuria
Coumadin-induced coagulopathy
Conditions prior to admission:
Chronic CHF reduced EF.
Ischemic cardiomyopathy
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
Aortic stenosis status post TAVR
Moderate to severe MR
Hypertension
Permanent atrial fibrillation
Anticoagulation with Coumadin
History of MSSA bacteremia treated with prolonged IV antibiotics
CKD stage III baseline creatinine 2.1
Obstructive sleep apnea on CPAP at night
Plan
Streptococcus bovis bacteremia--can be ASSOCIATED with colon cancer--consulted GI--will need colonoscopy despite having one 2019
Echocardiogram unremarkable
Repeat blood culture for clearance negative since 04/05/24
Antibiotics status post ceftriaxone given in the emergency room.
Antibiotics narrowed from vancomycin and ceftriaxone to ceftriaxone alone.
DONTAE tentatively on 04/10 after INR drifting down
Further workup for cause of strep bovis bacteremia with CT scan of the abdomen pelvis reveals significant left pleural effusion with possible loculation--had 500ml of bloody pleural fluid removed 04/09/24
Stable respiratory status.
Patient with prior history of aspiration. There is a reasonable concern for silent aspiration as a cause of infected pleural effusion.
Check speech and swallow relation with consideration of VSE.
Interventional radiology consultation for ultrasound and possible left thoracentesis. Orders in place.
In addition asymptomatic cholelithiasis visible on CT scan. In lieu of stable bovis bacteremia would consider further evaluation with HIDA.
Asymptomatic Citrobacter freundii bacteriuria. Final urine cultures pending
Chronic urine retention requiring self-catheterization
Teach self-catheterization technique
Status post single dose of fosfomycin on admission
Stomatitis/oral ulcers
Continue Magic mouthwash
Reported epistaxis at home no recurrence since admission.
Permanent atrial fibrillation.
Rate control with metoprolol.
Anticoagulation with Coumadin. INR above 4 on admission. Imaging has been on hold since admission letting INR drift down for pending DONTAE
History of V-fib status post AICD.
Continue amiodarone.
CAD with history of CABG.
Ischemic cardiomyopathy with LVEF of 30%.
Continue aspirin.
Resume torsemide. Monitor of volume status closely.
Continue Farxiga
Obstructive sleep apnea on CPAP at night.
Essential hypertension
Continue amlodipine
Type 2 diabetes by history
Hemoglobin A1c 7.7
Continue Farxiga
CKD stage II-III
Baseline creatinine 1.5�2. Improving down to 1.4 while on torsemide
Monitor closely.
Continue Farxiga.
CODE STATUS DNR
Anticipated Discharge: > 48 hours
Subjective/Interval History
-
Date of Service: April 09, 2024
pt returned from thoracentesis
Objective Data
-
Labs:
Laboratory Results
04/09/24
07:05
WBC 12.4 H
Hgb 13.9
Hct 42.0
Plt Count 92 L
PT 26.8 H
INR 2.48
Sodium 141
Potassium 3.9
Chloride 107
Carbon Dioxide 26
BUN 34 H
Creatinine 1.5 H
Glucose 150 H
Calcium 8.2 L
Vital Signs:
max temp for 24 hours
04/09/24
10:35
Temp 98.3 F
Vital Signs
Temp Pulse Resp BP Pulse Ox
98.3 F 71 16 128/75 95
04/09/24 10:35 04/09/24 10:35 04/09/24 10:35 04/09/24 10:35 04/09/24 10:35
I&O
04/08/24 04/09/24 04/10/24
06:59 06:59 06:59
Intake Total 1260 / 1260 820 / 820
Output Total 1600 / 1600 2300 / 2300
Balance -340 / -340 -1480 / -1480
Review of Systems
-
All other systems: Reviewed and negative
Physical Exam
-
General: Appears Chronically Ill
HEENT: Normocephalic and Atraumatic; Negative Oxygen
Respiratory: Clear to Auscultation (anteriorly)
Cardiac: Regular Rhythm and S1/S2; Negative Murmur
GI: Soft, Nontender, Nondistended and Normal Bowel Sounds
Musculoskeletal: No Clubbing, No Cyanosis and No Edema
Neuro: Awake
Psych: Calm
--- NOTE | 2024-04-09 12:52 | W.PN.ID1 ---
Date of Service
Date of Service: April 09, 2024
Today's Communication
Continue antibiotics
Assessment / Plan
# S. bovis bacteremia
# Leukocytosis - improved
# Asymptomatic Citrobacter bacteruria - s/p fosfomycin x 1 in ED
# Presence of TAVR, ICD
# PCN allergy
- repeat blood cultures no growth to date
- TTE: no vege; DONTAE is planned Wednesday
- last colonoscopy was 2019. Counseled patient on need for colonoscopy.
- Continue ceftriaxone
- follow clinically
����������������������������������������������������������
Chief Complaint
-: Bacteremia
Subjective / Review of Systems
Review of Systems: No Fever and No Chills
Vital Signs / Physical Exam
Vital Signs
Vital Signs
Temp Pulse Resp BP Pulse Ox
98.3 F 71 16 128/75 95
04/09/24 10:35 04/09/24 10:35 04/09/24 10:35 04/09/24 10:35 04/09/24 10:35
Physical Exam
Constitutional: No Acute Distress, Comfortable, Chronically Ill and Non-toxic
Pulmonary: Non Labored
Skin: Negative Rash or Jaundice
Neurological: Awake and Alert
Psychological: Calm
Objective Data
Lab Data
Lab Results
04/09/24 07:05
04/09/24 07:05
PT 26.8 Sec (11.4-14.6) H 04/09/24 07:05
INR 2.48 04/09/24 07:05
Estimated Creat Clear 41 ml/min 04/09/24 07:05
Lactic Acid Cancelled 04/04/24 22:30
Total Bilirubin 0.4 mg/dl (0.2-1.3) 04/07/24 08:02
AST 39 U/L (17-59) 05/31/24 08:02
ALT 30 U/L (0-50) 04/07/24 08:02
Alkaline Phosphatase 132 U/L (38-126) H 04/07/24 08:02
Most recent labs reviewed.
Micro Results:
04/09/24 11:09 Body Fluid Culture - Pending
Pleural Fluid Gram Stain - Pending
04/07/24 08:02 Blood Culture - Preliminary
Blood/Venous No Growth in 48 hours- Final report to follow
04/05/24 16:42 Blood Culture - Preliminary
Blood/Venous No Growth in 72 hours- Final report to follow
04/05/24 15:16 Blood Culture - Preliminary
Blood/Venous No Growth in 72 hours- Final report to follow
04/04/24 18:23 Blood Culture - Final
Blood/Venous Streptococcus bovis
Gram Stain - Final
04/04/24 18:23 Blood Culture - Final
Blood/Venous Streptococcus bovis
Gram Stain - Final
04/04/24 17:37 Urine Culture - Final
Urine Citrobacter freundii
Blood Culture Final 04/04/24
Streptococcus bovis Group
(Now classified as Streptococcus gallolyticus)
Organism 1 Streptococcus bovis
1. Streptococcus bovis
M.I.C. RX
--------- ---
Levofloxacin 2 S
Vancomycin 0.5 S
Imaging:
04/07/2024 CT abdomen/pelvis with oral contrast: Severely distended gallbladder containing gallstones. Moderate chronic bilateral renal disease. Large amount of fecal material in the proximal colon. Small to moderate loculated pleural effusion in
the inferior left hemithorax with a surrounding smooth rim of pleural thickening suspicious for empyema. Adjacent moderate subpleural airspace consolidation in the left lower lobe suggesting left lower lobe pneumonia.
04/04/24 CXR: Slightly increased hazy opacity at the left lung base, as described. Probable increased small pleural effusion. Cannot exclude atelectasis or mild pneumonia. Slightly diminished degree of inspiration likely contributing to slight
crowding of parenchymal markings at the right lung base.
04/04/24 Peripheral venous US RLE: no DVT
[2024-04-09] MEDS: NOVOLOG FLEXPEN-LOW RESISTANCE 1 UNITS SC (13:14)
--- NOTE | 2024-04-09 14:08 | CON.GI ---
Consultation
-
Date/Time Consultation Requested: 04/09/2024, 12:15pm
Date/Time Consultation Performed: 04/09/2025, 2:30 pm
Requesting Provider: Dr. Lawler
Performing Provider: Dr. Gil
Reason for Consultation: Strep bovis bacteremia
Medical History
Chief Complaint / HPI
Chief Complaint: weakness
History of Present Illness:
78 yo M multiple med issues including s/p AVR 2016, a fib on coumadin, ischemic CM EF 30%, Vfib arrest s/p AICD admitted with lethargy.
Found to have asymptomatic Citrobacter bacteruria and S. bovis bactermia. Infectious diseases following him and he is currently on ceftriaxone. Cardiology has also seen him over the weekend and they are planning an echo on Wednesday. Patient is also
on Coumadin and his INR initially was 4.33 down to 2.48 and his Coumadin has been on hold.
In discussion with patient today, he states his stools were black about 3 to 4 days ago but now green. He states his stools have been irregular being in the hospital but prior to that was more regular. He is requiring laxatives here in the
hospital. Reviewing chart he is currently on MiraLAX daily. He denies any bright red blood. Denies any abdominal pain, nausea, vomiting. He does not have dysphagia but does have some heartburn about once a week. No family history of colon
cancer that he is aware of.
Colonoscopy Dr. Garcia November 2018 5 mm ascending colon polyp removed with cold snare otherwise normal. Pathology showed tubular adenoma.
Past Medical History
Past Medical History: HTN, Hypercholesterolemia, NIDDM, Renal Failure and Other (aortic stenosis status post aortic valve replacement 2016, persistent atrial fibrillation on Coumadin, coronary artery disease status post CABG in 2000, ischemic
cardiomyopathy with EF of 30%, HFrEF, moderate to severe mitral regurgitation, V-fib arrest s/p ICD, RBBB, peripheral edema, , AURA)
Past Surgical History: None
Social History
Tobacco: Non-Smoker
Alcohol: None
Drug: None
Family History
Family History: Reviewed & Not Pertinent
Allergies / Home Medications
Allergy/AdvReac Type Severity Reaction Status Date / Time
Penicillins Allergy Hives; Verified 04/04/24 11:39
Tolerated
Cefazolin
Oct 2021
Qjiwoqs-ZKA-QdM Reductase Allergy elevated Verified 04/04/24 11:39
Inhibitor liver
[Vmlzfqf-Rhr-Pcw Reductase enzymes,
Inhibitor] 'makes me
crazY'
�Medication �Instructions �Recorded
ezetimibe 10 mg tablet 10 mg PO HS High cholesterol 04/03/14
multivitamin with folic acid 400 1 tab PO DAILY Supplement 03/04/17
mcg tablet (Tab-A-Nicole)
nfbzvx-nacgahq-lot palm-min 17 1 cap PO DAILY Supplement 10/26/18
capsule (Prostate Therapy capsule)
pantoprazole 40 mg tablet,delayed 40 mg PO BID Gastrointestinal issue 10/26/18
release
ferrous sulfate 325 mg (65 mg 325 mg PO DAILY Supplement 06/20/20
iron) tablet (FeroSul)
fish oil-dha-epa 1,200 mg-144 1 cap PO BID Supplement 06/20/20
mg-216 mg capsule
amlodipine 10 mg tablet 10 mg PO HS Blood pressure 12/02/21
budesonide 0.5 mg/2 mL suspension 0.5 mg inhalation R BID 01/23/22
for nebulization Lung/breathing issues
famotidine 40 mg tablet 40 mg PO HS Gastrointestinal issue 01/23/22
ipratropium 0.5 mg-albuterol 3 mg 3 ml inhalation R TID 01/23/22
(2.5 mg base)/3 mL nebulization Lung/breathing issues
soln
torsemide 20 mg tablet 20 mg PO BID@0800,1500 Blood 01/23/22
pressure
Lactobac no.2-Bifidobac no.1-S. 1 cap PO BID 04/04/24
thermo 112.5 billion cell capsule
(Visbiome)
dapagliflozin propanediol 10 mg 10 mg PO DAILY 04/04/24
tablet (Farxiga)
finasteride 5 mg tablet 5 mg PO HS 04/04/24
metoprolol succinate 200 mg 200 mg PO HS 04/04/24
tablet,extended release 24 hr
warfarin 2 mg tablet 4 mg PO SUTUWEFRSA 04/04/24
warfarin 2 mg tablet (Jantoven) 2 mg PO MOTH 04/04/24
Review of Systems
-
All other systems: A 12 pt ROS was Negative except as stated above in HPI
Vital Signs
Temp Pulse Resp BP Pulse Ox
97.4 F 75 18 122/76 95
04/09/24 11:00 04/09/24 11:00 04/09/24 11:00 04/09/24 11:00 04/09/24 11:00
Physical Exam
Exam
General: Well Developed
HEENT: Normocephalic
Respiratory: Clear
Cardiac: S1/S2
GI: Non Tender and Non Distended
Skin: Warm
Neuro: AO x 3
Psych: Calm
Results
WBC 12.4 10^3/uL (4.8-10.8) H 04/09/24 07:05
Hgb 13.9 g/dL (13.0-18.0) 04/09/24 07:05
Hct 42.0 % (39.0-52.0) 04/09/24 07:05
MCV 88.1 fL (80.0-94.0) 04/09/24 07:05
Plt Count 92 10^3/uL (130-400) L 04/09/24 07:05
Absolute Neuts (auto) 10.2 10^3/uL (1.4-6.5) H 04/09/24 07:05
PT 26.8 Sec (11.4-14.6) H 04/09/24 07:05
INR 2.48 04/09/24 07:05
Sodium 141 mmol/L (135-145) 04/09/24 07:05
Potassium 3.9 mmol/L (3.5-5.1) 04/09/24 07:05
Chloride 107 mmol/L (98-107) 04/09/24 07:05
Carbon Dioxide 26 mmol/L (22-30) 04/09/24 07:05
BUN 34 mg/dl (9-20) H 04/09/24 07:05
Creatinine 1.5 mg/dL (0.7-1.3) H 04/09/24 07:05
Calcium 8.2 mg/dl (8.4-10.2) L 04/09/24 07:05
Total Bilirubin 0.4 mg/dl (0.2-1.3) 04/07/24 08:02
AST 39 U/L (17-59) 04/07/24 08:02
ALT 30 U/L (0-50) 04/07/24 08:02
Alkaline Phosphatase 132 U/L (38-126) H 04/07/24 08:02
Diagnostic Image Results:
Prior GI Procedures:
EGD:
Colonoscopy:
Assessment / Plan
-
78 yo M multiple med issues including s/p AVR 2017, a fib on coumadin, ischemic CM EF 30%, Vfib arrest s/p AICD admitted with lethargy found to have S. bovis bacteremia.
Needs cscope inpatient vs outpatient pending clinical status as S. bovis bacteremia has been a/w colon Ca. Will need to coordinate with cardiology as patient on coumadin - will need to review with them if bridge is needed. We will touch base with
cardiology on Wednesday.
Some constipation on miralax will increase to bid in case cscope done inpatient.
States had black stool but resolved- Hb normal; BUN 34 but Cr 1.5. Stools recorded on flowsheet 04/05 and 04/08 both brown. Also has heartburn at home. He is on protonix 40 po bid currently.
-
-
Thank you for consultation and allowing me to participate in the patient's care. Please call the patient transportation driver GI physician during the after hours with any questions or concerns.
--- NOTE | 2024-04-09 15:38 | PTOTSP ---
ST Acute Care Evaluation
Pt currently presents with mild oropharyngeal and esophageal dysphagia characterized by mildly prolonged mastication and bolus formation, mildly reduced bolus formation, need for liquid washes, piecemeal deglutition, difficulty initiating swallows
at times, aerophagia, and persistent eructation.
Recommendations:
- Continue with regular solids, thin liquids, meds whole in puree.
- Aspiration precautions: HOB upright for all PO intake and for at least 60 minutes after PO intake; small bites/sips; alternate bites/sips.
- Consider GI consult for suspected/uncontrolled GERD.
- LEAF STRIPPER will continue to follow while in house to ensure pt is consuming the safest and least restrictive diet consistencies and to determine whether or not pt would benefit from an instrumental swallow study.
- LEAF STRIPPER to monitor cognitive status and complete a cognitive linguistic evaluation if it is indicated.
--- NOTE | 2024-04-09 15:53 | PTCARENOTE ---
Assumed care of pt from previous nurse. Pt denies pain. Pt is on tele running afib. Pt straight catheterized at 1200, unable to do it at 1100 as pt was off the floor. Pt call delarosa is within reach, pt rings maryan. will cont to monitor.
[2024-04-09 16:45] LABS: Glucose - Point of Care 204 mg/dl (70-99)
[2024-04-09] MEDS: ROCEPHIN 2000 MG IV (18:26)
[2024-04-09] MEDS: STERILE WATER FOR INJECTION 20 ML IV (18:27)
[2024-04-09] MEDS: TOPROL XL 200 MG PO (18:27)
[2024-04-09] MEDS: NOVOLOG FLEXPEN-LOW RESISTANCE 2 UNITS SC (18:28)
[2024-04-09 21:20] LABS: Glucose - Point of Care 188 mg/dl (70-99)
[2024-04-09] MEDS: NORVASC 10 MG PO (21:21)
[2024-04-09] MEDS: PROSCAR 5 MG PO (21:21)
[2024-04-09] MEDS: MIRALAX PO ×2 (21:21→21:35)
[2024-04-09] MEDS: PEPCID 20 MG PO (21:22)
[2024-04-09] MEDS: MELATONIN 5 MG PO (21:22)
[2024-04-09] MEDS: ZETIA 10 MG PO (21:27)
[2024-04-09] MEDS: PULMICORT INH (22:54)
[2024-04-10] VITALS (7 sets, daily range): BP systolic 113–126; BP diastolic 62–82; PULSE 72; O2SAT 94; BMI 24.3
[2024-04-10 05:44] LABS: Glucose - Point of Care 143 mg/dl (70-99)
[2024-04-10] MEDS: PULMICORT 0.5 MG INH ×2 (07:22→19:25)
[2024-04-10] MEDS: DUONEB 3 ML INH ×3 (07:23→19:25)
[2024-04-10 07:49] LABS: Hematocrit 41.7 % (39.0-52.0); Hemoglobin 13.7 g/dL (13.0-18.0); Mean Corp Hgb Conc. 32.9 g/dL (33.0-37.0); Mean Corpuscular Hgb 29.4 pg (27.0-31.0); Mean Corpuscular Volume 89.5 fL (80.0-94.0); Mean Platelet Volume 12.9 fL (7.4-10.4); Platelet Count 94 10^3/uL (130-400); Red Blood Cell Count 4.66 10^6/uL (4.70-6.10); Red Cell Dist. Width 16.4 % (11.5-14.5); White Blood Cell Count 10.4 10^3/uL (4.8-10.8)
[2024-04-10 07:56] LABS: PT 26.9 Sec (11.4-14.6)
--- NOTE | 2024-04-10 08:01 | PN.CDI ---
CDI
- -
CDI:
Physician Documentation Request
Admit Date: 04/04/24 19:41
Dear Doctor Del,
Please review the following and provide your response in the progress notes.
Clinical Indicators:
Pt admitted with bacteremia
04/08 PN: 'Patient with prior history of aspiration. There is a reasonable concern for silent aspiration as a cause of infected pleural effusion.
04/09 ID PN included 04/07 CT results:'Adjacent moderate subpleural airspace consolidation in the left lower lobe suggesting left lower lobe pneumonia.' and 04/04 CXR results'' Cannot exclude atelectasis or mild pneumonia.'
Based on the above, could you clarify in the Progress Notes further specificity regarding the known, suspected or likely type of pneumonia you are treating (recognizing the specific organism may not be known)?
Example:
Aspiration Pneumonia - indicate substance such as food or vomitus, oils or other solids or liquids
Streptococcus Pneumonia
Viral Pneumonia - indicate parainfluenza, RSV, adenovirus, influenza (indicate type) etc.
Other( please specify)
Use of terms such as suspected, likely, concern for, or probable (associated with a specific diagnosis that is being evaluated, monitored, or treated as if it exists) are acceptable and can be coded in the inpatient setting, when documented at the
time of discharge.
Thank you,
Natacha Colvin RN, BSN
CDI Specialist
Available via [place] [employer]
Please use your independent medical judgment in providing your response.
--- NOTE | 2024-04-10 08:07 | W.PN.GI.CBS2 ---
Today's Communication / Plan
-
Please see assessment and plan for details.
Assessment / Plan
-
1. Strep bovis bacteremia: For DONTAE today. Given multiple comorbidities and need for anticoagulation we will plan colonoscopy while inpatient, likely later this week when INR is around 1.5 pending further cardiac evaluation, continue to hold
Coumadin for now.
Subjective
Subjective
Date of Service: April 10, 2024
Patient feeling better overall after thoracentesis, no shortness of breath abdominal pain, nausea or vomiting.
Objective
Data Reviewed
Laboratory Data:
Laboratory Results
04/10/24 06:43
Laboratory Results
PT 26.9 Sec (11.4-14.6) H 04/10/24 06:43
INR 2.50 04/10/24 06:43
Total Bilirubin 0.4 mg/dl (0.2-1.3) 04/07/24 08:02
AST 39 U/L (17-59) 04/07/24 08:02
ALT 30 U/L (0-50) 04/07/24 08:02
Alkaline Phosphatase 132 U/L (38-126) H 04/07/24 08:02
Vital Signs and I&O:
Vital Signs
Temp Pulse Resp BP Pulse Ox
97.9 F 71 16 113/66 97
04/09/24 22:56 04/10/24 07:25 04/10/24 07:25 04/10/24 03:12 04/10/24 07:25
I&O
04/09/24 04/10/24 04/11/24
06:59 06:59 06:59
Intake Total 820 / 820 660 / 660
Output Total 2300 / 2300 2500 / 2500
Balance -1480 / -1480 -1840 / -1840
Physical Exam
Physical Exam
General: NAD
Abdomen: normal bowel sounds, soft, no tenderness, no masses or bruits, no ascites
[2024-04-10] MEDS: VISBIOME 1 CAP PO ×2 (08:11→22:44)
[2024-04-10] MEDS: DEMADEX 20 MG PO ×2 (08:11→16:11)
[2024-04-10] MEDS: PROTONIX 40 MG PO ×2 (08:11→22:43)
[2024-04-10] MEDS: FEOSOL 325 MG PO (08:11)
[2024-04-10] MEDS: THERAGRAN 1 TABLET PO (08:12)
[2024-04-10] MEDS: MIRALAX PO ×2 (08:12→22:43)
[2024-04-10] MEDS: NOVOLOG FLEXPEN-LOW RESISTANCE SC (08:12)
[2024-04-10] MEDS: FIRST-MOUTHWASH BLM SUSPENSION 5 ML PO ×4 (08:12→22:45)
[2024-04-10] MEDS: FARXIGA 10 MG PO (08:12)
[2024-04-10 08:24] LABS: ALT (SGPT) 147 U/L (0-50); AST (SGOT) 148 U/L (17-59); Albumin 2.9 g/dl (3.5-5.0); Alkaline Phosphatase 625 U/L (38-126); Blood Urea Nitrogen 34 mg/dl (9-20); Calcium 8.3 mg/dl (8.4-10.2); Carbon Dioxide 23 mmol/L (22-30); Chloride 108 mmol/L (98-107); Estimated Creatinine Clearance 38 ml/min; Glucose 137 mg/dl (70-99); Magnesium 2.5 mg/dl (1.6-2.3); Sodium 140 mmol/L (135-145); Total Bilirubin 0.5 mg/dl (0.2-1.3); Total Protein 5.6 g/dl (6.3-8.2); eGFR 43.83
--- NOTE | 2024-04-10 08:44 | W.PN.CD ---
Today's Communication / Plan
-
GI communication reviewed: he stable for colonoscopy as inpatient
-coumadin can be resumed after the colonoscopy
plan for DONTAE today
Impression / Plan
-
Strep bovis bacteremia: in setting of TAVR
-Bcx +04/04, neg so far on 04/05
-on IV abx, ID following
-GI communication reviewed: he stable for colonoscopy as inpatient
-coumadin can be resumed after the colonoscopy
-plan for DONTAE today
Citrobacter bacteruria:
-on abx
-ID following
Permanent AFIB:
-INR was supratherapeutic on admission, now 2.5
-OK to hold coumadin for colonoscopy, then resume afterwards
-rate control: continue metoprolol 200 mg HS
s/p TAVR:
-echo this admit- EF 35-40%. Well seated TAVR with peak/mean gradients across the aortic valve are 13/8 mmHg. Mild paravalvular aortic regurgitation.
Chronic systolic heart failure:
-seems euvolemic at ~75kg
-cont torsemide 20mg bid
ICM EF 35-40%:
-cont Toprol XL and Farxiga
-GDMT limited by renal function in past (CKD4, although Cr seems to be improving)
HTN:
-stable
-monitor
hx VF arrest:
-ICD in place
-previously on amio, stopped due to lung toxicity
CAD hx CABG:
-stable no angina
Physical Exam
Vital Signs/Labs
Vital Signs
Temp Pulse Resp BP Pulse Ox
97.9 F 71 16 114/71 97
04/09/24 22:56 04/10/24 07:25 04/10/24 07:25 04/10/24 08:11 04/10/24 07:25
04/09/24 04/10/24 04/11/24
06:59 06:59 06:59
Actual Weight 77.564 kg 74.503 kg
04/10/24 06:43
04/10/24 06:43
PT 26.9 Sec (11.4-14.6) H 04/10/24 06:43
INR 2.50 04/10/24 06:43
Magnesium 2.5 mg/dl (1.6-2.3) H 04/10/24 06:43
Physical Exam
Constitutional: No acute distress and Comfortable
EENT: Moist mucous membranes
Cardiovascular: Pedal edema is absent, JVD pressure is normal, Rhythm/rate is irregular and Systolic murmur present
Respiratory: Respiratory effort normal and Lungs clear to auscul.
GI: Soft and Distention absent
Neuro/Psych: AO x 3
Data Reviewed
-
Date of Service: April 10, 2024
EKG: Other (Tele: A fib 80s)
Labs: Labs Reviewed by me
--- NOTE | 2024-04-10 10:24 | W.PN.UPDATE ---
Update Note
Progress Note Update
No evidence of endocarditis on DONTAE. Full report to follow.
Coumadin can be resumed after colonoscopy is completed.
Please call us back with additional questions.
[2024-04-10 12:04] LABS: Glucose - Point of Care 160 mg/dl (70-99)
[2024-04-10] MEDS: NOVOLOG FLEXPEN-LOW RESISTANCE 1 UNITS SC (12:47)
--- NOTE | 2024-04-10 14:24 | W.PN.ID1 ---
Date of Service
Date of Service: April 10, 2024
Today's Communication
continue ceftriaxone
appreciate GI input re: colonoscopy
Assessment / Plan
# S. bovis bacteremia
# Leukocytosis - improved
# Asymptomatic Citrobacter bacteruria - s/p fosfomycin x 1 in ED
# Presence of TAVR, ICD
# PCN allergy
- repeat blood cultures no growth to date
- DONTAE no vegetation
- colonoscopy planned - appreciate GI input
- Continue ceftriaxone
- follow clinically
����������������������������������������������������������
Chief Complaint
-: Bacteremia
Subjective / Review of Systems
afebrile
bp stable
resolved leukocytosis
plt remain low
cr stable
bacteremia clearing
DONTEA no valvular lesions
in good spirits
Vital Signs / Physical Exam
Vital Signs
Vital Signs
Temp Pulse Resp BP Pulse Ox
97.5 F 82 16 119/82 96
04/10/24 11:00 04/10/24 13:41 04/10/24 13:41 04/10/24 11:00 04/10/24 13:41
Physical Exam
Constitutional: No Acute Distress and Chronically Ill
Cardiovascular: Regular Rate and S1/S2; Negative Murmur or Rub
Pulmonary: Clear and Symmetric; Negative Wheezes or Rales
Gastrointestinal: Soft, Non Tender, Non Distended and Normal Bowel Sounds
Skin: Warm and Dry; Negative Rash or Jaundice
Objective Data
Lab Data
Lab Results
04/10/24 06:43
04/10/24 06:43
PT 26.9 Sec (11.4-14.6) H 04/10/24 06:43
INR 2.50 04/10/24 06:43
Estimated Creat Clear 38 ml/min 04/10/24 06:43
Lactic Acid Cancelled 04/04/24 22:30
Total Bilirubin 0.5 mg/dl (0.2-1.3) 04/10/24 06:43
AST 148 U/L (17-59) H 04/10/24 06:43
ALT 147 U/L (0-50) H 04/10/24 06:43
Alkaline Phosphatase 625 U/L (38-126) H 04/10/24 06:43
Most recent labs reviewed.
Micro Results:
04/09/24 11:09 Body Fluid Culture - Preliminary
Pleural Fluid No Growth After 18-24 Hours
Gram Stain - Preliminary
04/07/24 08:02 Blood Culture - Preliminary
Blood/Venous No Growth in 72 hours- Final report to follow
04/05/24 16:42 Blood Culture - Preliminary
Blood/Venous No Growth in 4 days- Final report to follow
04/05/24 15:16 Blood Culture - Preliminary
Blood/Venous No Growth in 4 days- Final report to follow
04/04/24 18:23 Blood Culture - Final
Blood/Venous Streptococcus bovis
Gram Stain - Final
04/04/24 18:23 Blood Culture - Final
Blood/Venous Streptococcus bovis
Gram Stain - Final
04/04/24 17:37 Urine Culture - Final
Urine Citrobacter freundii
Blood Culture Final 04/04/24
Streptococcus bovis Group
(Now classified as Streptococcus gallolyticus)
Organism 1 Streptococcus bovis
1. Streptococcus bovis
M.I.C. RX
--------- ---
Levofloxacin 2 S
Vancomycin 0.5 S
Imaging:
04/07/2024 CT abdomen/pelvis with oral contrast: Severely distended gallbladder containing gallstones. Moderate chronic bilateral renal disease. Large amount of fecal material in the proximal colon. Small to moderate loculated pleural effusion in
the inferior left hemithorax with a surrounding smooth rim of pleural thickening suspicious for empyema. Adjacent moderate subpleural airspace consolidation in the left lower lobe suggesting left lower lobe pneumonia.
04/04/24 CXR: Slightly increased hazy opacity at the left lung base, as described. Probable increased small pleural effusion. Cannot exclude atelectasis or mild pneumonia. Slightly diminished degree of inspiration likely contributing to slight
crowding of parenchymal markings at the right lung base.
04/04/24 Peripheral venous US RLE: no DVT
--- NOTE | 2024-04-10 16:06 | CM ---
Chart reviewed, plan for colonoscopy. Patient seen with , patient remains on antibiotics. CM will update VN on patients discharge status. CM will continue to follow for discharge planning needs.
Plan; home with [facility] when stable, watch for antibiotic needs.
[2024-04-10 16:36] LABS: Glucose - Point of Care 256 mg/dl (70-99)
[2024-04-10] MEDS: STERILE WATER FOR INJECTION 20 ML IV (17:22)
[2024-04-10] MEDS: ROCEPHIN 2000 MG IV (17:22)
[2024-04-10] MEDS: TOPROL XL 200 MG PO (17:22)
[2024-04-10] MEDS: NOVOLOG FLEXPEN-LOW RESISTANCE 3 UNITS SC (17:23)
--- NOTE | 2024-04-10 17:26 | W.PN.HOSP.TC ---
Today's Communication/Plan
-
Continue IV antibiotics for strep bovis bacteremia.
Hold Coumadin awaiting INR drift down in preparation for colonoscopy.
Monitor for pleural fluid reaccumulation.
Follow-up pathology
Assessment / Plan
Assessment / Plan
Impression:
Presentation with generalized fatigue, chills
Streptococcal bovis bacteremia.
Left pleural effusion
Asymptomatic bacteriuria
Coumadin-induced coagulopathy
Conditions prior to admission:
Chronic CHF reduced EF.
Ischemic cardiomyopathy
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
Aortic stenosis status post TAVR
Moderate to severe MR
Hypertension
Permanent atrial fibrillation
Anticoagulation with Coumadin
History of MSSA bacteremia treated with prolonged IV antibiotics
CKD stage III baseline creatinine 2.1
Obstructive sleep apnea on CPAP at night
Plan
Streptococcus bovis bacteremia
Echocardiogram unremarkable
DONTAE 04/09 negative for endocarditis
Repeat blood culture for clearance negative since 04/05/24
Antibiotics status post ceftriaxone given in the emergency room.
Antibiotics narrowed from vancomycin and ceftriaxone to ceftriaxone alone.
Further workup for cause of strep bovis bacteremia with CT scan of the abdomen pelvis reveals significant left pleural effusion with possible loculation--
Given association of staph bovis bacteremia and occult GI malignancy, will require further evaluation. Most recent colonoscopy 2018.
Left pleural effusion
Patient with prior history of aspiration.
Incidental finding on CT left pleural effusion
Status post left thoracentesis 04/09 with 500 cc of logic fluid removed. Exudative. Gram stain and cultures negative to date.
Pathology pending
Speech and swallow evaluation without IV or clinical aspiration
Asymptomatic Citrobacter freundii bacteriuria. Final urine cultures pending
Chronic urine retention requiring self-catheterization
Teach self-catheterization technique
Status post single dose of fosfomycin on admission
Stomatitis/oral ulcers
Continue Magic mouthwash
Reported epistaxis at home no recurrence since admission.
Permanent atrial fibrillation.
Rate control with metoprolol.
Anticoagulation with Coumadin. INR above 4 on admission. Imaging has been on hold since admission letting INR drift down for pending DONTAE
History of V-fib status post AICD.
Continue amiodarone.
CAD with history of CABG.
Ischemic cardiomyopathy with LVEF of 30%.
Continue aspirin.
Resume torsemide. Monitor of volume status closely.
Continue Farxiga
Obstructive sleep apnea on CPAP at night.
Essential hypertension
Continue amlodipine
Type 2 diabetes by history
Hemoglobin A1c 7.7
Continue Farxiga
CKD stage II-III
Baseline creatinine 1.5�2. Improving down to 1.4 while on torsemide
Monitor closely.
Continue Farxiga.
CODE STATUS DNR
Anticipated Discharge: > 48 hours
Subjective/Interval History
-
Date of Service: April 10, 2024
Objective Data
-
Labs:
Laboratory Results
04/10/24
06:43
WBC 10.4
Hgb 13.7
Hct 41.7
Plt Count 94 L
PT 26.9 H
INR 2.50
Sodium 140
Potassium 4.0
Chloride 108 H
Carbon Dioxide 23
BUN 34 H
Creatinine 1.6 H
Glucose 137 H
Calcium 8.3 L
Total Bilirubin 0.5
AST 148 H
ALT 147 H
Alkaline Phosphatase 625 H
Vital Signs:
Vital Signs
Temp Pulse Resp BP Pulse Ox
97.5 F 82 16 124/65 96
04/10/24 11:00 04/10/24 13:41 04/10/24 13:41 04/10/24 16:11 04/10/24 13:41
I&O
04/09/24 04/10/24 04/11/24
06:59 06:59 06:59
Intake Total 820 / 820 660 / 660
Output Total 2300 / 2300 2500 / 2500 600 / 600
Balance -1480 / -1480 -1840 / -1840 -600 / -600
Physical Exam
-
General: Well Developed and No Apparent Distress
HEENT: Normocephalic, Atraumatic and Moist Mucous Membranes
Respiratory: Clear to Auscultation
Cardiac: Regular Rhythm and S1/S2; Negative Murmur, Rub or Gallop
GI: Soft, Nontender, Nondistended and Normal Bowel Sounds; Negative Organomegaly
Rectal: Deferred by Provider
Musculoskeletal: No Clubbing, No Cyanosis and No Edema
Skin: Negative Rash
Neuro: Nonfocal/Grossly Intact
[2024-04-10 21:49] LABS: Glucose - Point of Care 177 mg/dl (70-99)
[2024-04-10] MEDS: PROSCAR 5 MG PO (22:44)
[2024-04-10] MEDS: ZETIA 10 MG PO (22:45)
[2024-04-10] MEDS: MELATONIN 5 MG PO (22:45)
[2024-04-10] MEDS: NORVASC 10 MG PO (22:46)
[2024-04-11 03:30] VITALS: BP 119/70
[2024-04-11 06:00] VITALS: BMI 24.0
[2024-04-11] MEDS: PULMICORT 0.5 MG INH ×2 (06:15→20:43)
[2024-04-11] MEDS: DUONEB 3 ML INH ×3 (06:15→20:43)
[2024-04-11 07:13] LABS: INR 2.21; PT 24.4 Sec (11.4-14.6)
[2024-04-11 07:20] LABS: Glucose - Point of Care 149 mg/dl (70-99)
--- NOTE | 2024-04-11 07:22 | W.PN.GI.CBS2 ---
Today's Communication / Plan
-
Colonoscopy this week
Assessment / Plan
-
Strep bovis bacteremia:
- INR 2.2 today
- still await drift down in INR, colonoscopy likely or wednesday
Subjective
Subjective
Date of Service: April 11, 2024
Pt with no abdominal pain
Objective
Data Reviewed
Laboratory Data:
Laboratory Results
04/10/24 06:43
04/10/24 06:43
Laboratory Results
PT 24.4 Sec (11.4-14.6) H 04/11/24 06:26
INR 2.21 04/11/24 06:26
Magnesium 2.5 mg/dl (1.6-2.3) H 04/10/24 06:43
Total Bilirubin 0.5 mg/dl (0.2-1.3) 04/10/24 06:43
AST 148 U/L (17-59) H 04/10/24 06:43
ALT 147 U/L (0-50) H 04/10/24 06:43
Alkaline Phosphatase 625 U/L (38-126) H 04/10/24 06:43
Vital Signs and I&O:
Vital Signs
Temp Pulse Resp BP Pulse Ox
97.4 F 70 14 119/70 97
04/11/24 03:30 04/11/24 06:17 04/11/24 06:17 04/11/24 03:30 04/11/24 06:17
I&O
04/10/24 04/11/24 04/12/24
06:59 06:59 06:59
Intake Total 660 / 660 660 / 660
Output Total 2500 / 2500 1175 / 1175
Balance -1840 / -1840 -515 / -515
Physical Exam
Physical Exam
GI: Soft, Non Distended and Non Tender
[2024-04-11 07:25] VITALS: BP 119/69
[2024-04-11] MEDS: VISBIOME 1 CAP PO ×2 (09:32→22:07)
[2024-04-11] MEDS: FEOSOL 325 MG PO (09:32)
[2024-04-11] MEDS: FARXIGA 10 MG PO (09:32)
[2024-04-11] MEDS: THERAGRAN 1 TABLET PO (09:32)
[2024-04-11] MEDS: PROTONIX 40 MG PO ×2 (09:32→22:07)
[2024-04-11] MEDS: DEMADEX 20 MG PO ×2 (09:32→15:17)
[2024-04-11] MEDS: MIRALAX 17 GRAMS PO (09:32)
[2024-04-11] MEDS: NOVOLOG FLEXPEN-LOW RESISTANCE SC (09:33)
[2024-04-11 10:02] VITALS: BMI 24.1
[2024-04-11 11:12] LABS: Glucose - Point of Care 234 mg/dl (70-99)
[2024-04-11 11:15] VITALS: BP 107/51
[2024-04-11] MEDS: FIRST-MOUTHWASH BLM SUSPENSION PO ×3 (11:50→22:21)
[2024-04-11] MEDS: NOVOLOG FLEXPEN-LOW RESISTANCE 2 UNITS SC (11:50)
[2024-04-11] MEDS: TYLENOL 650 MG PO (13:11)
[2024-04-11] MEDS: FIRST-MOUTHWASH BLM SUSPENSION 5 ML PO (13:12)
--- NOTE | 2024-04-11 15:04 | W.PN.ID1 ---
Date of Service
Date of Service: April 11, 2024
Today's Communication
Continue ceftriaxone.
Assessment / Plan
# S. bovis bacteremia
# Leukocytosis - resolved
# Asymptomatic Citrobacter bacteruria - s/p fosfomycin x 1 in ED
# Presence of TAVR, ICD
# PCN allergy
- repeat blood cultures no growth to date
- DONTAE no vegetation, appreciate Cardiology.
- CT a/p no abscess in abdomen
- colonoscopy planned later this week- appreciate GI input
- Continue ceftriaxone (d8)
- follow clinically
#Additional Past Medical History:
Diabetes mellitus type 2.
Aortic stenosis, status post transcatheter aortic valve
replacement.
Ischemic cardiomyopathy status post ICD placement.
Coronary disease, status post CABG.
Hypertension.
CKD3
Peripheral artery disease including carotid stenosis.
History of MSSA bacteremia, pneumonia with negative DONTAE, status
post six weeks of cefazolin completed December 05, 2021.
Atrial fibrillation, on Coumadin.
Obstructive sleep apnea, on CPAP.
Urinary retention, self cath
UTI
Venous stasis, chronic R>LE edema
����������������������������������������������������������
Chief Complaint
-: Bacteremia
Subjective / Review of Systems
Feeling better.
Vital Signs / Physical Exam
Vital Signs
Vital Signs
Temp Pulse Resp BP Pulse Ox
97.5 F 75 17 107/51 95
04/11/24 11:15 04/11/24 11:15 04/11/24 11:15 04/11/24 11:15 04/11/24 11:15
Physical Exam
Constitutional: No Acute Distress and Comfortable
Pulmonary: Clear
Gastrointestinal: Soft, Non Tender, Non Distended and Normal Bowel Sounds
Neurological: AO x 3
Objective Data
Lab Data
Lab Results
04/10/24 06:43
04/10/24 06:43
PT 24.4 Sec (11.4-14.6) H 04/11/24 06:26
INR 2.21 04/11/24 06:26
Estimated Creat Clear 38 ml/min 04/10/24 06:43
Lactic Acid Cancelled 04/04/24 22:30
Total Bilirubin 0.5 mg/dl (0.2-1.3) 04/10/24 06:43
AST 148 U/L (17-59) H 04/10/24 06:43
ALT 147 U/L (0-50) H 04/10/24 06:43
Alkaline Phosphatase 625 U/L (38-126) H 04/10/24 06:43
Most recent labs reviewed.
Micro Results:
04/09/24 11:09 Body Fluid Culture - Preliminary
Pleural Fluid No Growth After 48 Hours
Gram Stain - Preliminary
04/07/24 08:02 Blood Culture - Preliminary
Blood/Venous No Growth in 4 days- Final report to follow
04/05/24 16:42 Blood Culture - Final
Blood/Venous No Growth - Final Report
04/05/24 15:16 Blood Culture - Final
Blood/Venous No Growth - Final Report
04/04/24 18:23 Blood Culture - Final
Blood/Venous Streptococcus bovis
Gram Stain - Final
04/04/24 18:23 Blood Culture - Final
Blood/Venous Streptococcus bovis
Gram Stain - Final
04/04/24 17:37 Urine Culture - Final
Urine Citrobacter freundii
Blood Culture Final 04/04/24
Streptococcus bovis Group
(Now classified as Streptococcus gallolyticus)
Organism 1 Streptococcus bovis
1. Streptococcus bovis
M.I.C. RX
--------- ---
Levofloxacin 2 S
Vancomycin 0.5 S
Imaging:
04/07/2024 CT abdomen/pelvis with oral contrast: Severely distended gallbladder containing gallstones. Moderate chronic bilateral renal disease. Large amount of fecal material in the proximal colon. Small to moderate loculated pleural effusion in
the inferior left hemithorax with a surrounding smooth rim of pleural thickening suspicious for empyema. Adjacent moderate subpleural airspace consolidation in the left lower lobe suggesting left lower lobe pneumonia.
04/04/24 CXR: Slightly increased hazy opacity at the left lung base, as described. Probable increased small pleural effusion. Cannot exclude atelectasis or mild pneumonia. Slightly diminished degree of inspiration likely contributing to slight
crowding of parenchymal markings at the right lung base.
04/04/24 Peripheral venous US RLE: no DVT
--- NOTE | 2024-04-11 15:12 | CM ---
CM reviewed chart, patient remains on IV antibiotics. Patient for colonoscopy this week. CM will continue to follow for all discharge planning needs.
Plan; home with [facility] when stable, watch for IV antibiotic needs.
[2024-04-11 15:16] VITALS: BP 112/68
[2024-04-11 16:27] LABS: Glucose - Point of Care 156 mg/dl (70-99)
[2024-04-11] MEDS: NOVOLOG FLEXPEN-LOW RESISTANCE 1 UNITS SC (17:08)
[2024-04-11] MEDS: STERILE WATER FOR INJECTION 20 ML IV (17:46)
[2024-04-11] MEDS: TOPROL XL 200 MG PO (17:46)
[2024-04-11] MEDS: ROCEPHIN 2000 MG IV (17:46)
[2024-04-11 19:50] VITALS: BP 115/60
[2024-04-11 21:48] LABS: Glucose - Point of Care 214 mg/dl (70-99)
[2024-04-11] MEDS: ZETIA 10 MG PO (22:07)
[2024-04-11] MEDS: MELATONIN 5 MG PO (22:07)
[2024-04-11] MEDS: PEPCID 20 MG PO (22:07)
[2024-04-11] MEDS: PROSCAR 5 MG PO (22:08)
[2024-04-11] MEDS: NORVASC 10 MG PO (22:14)
[2024-04-11] MEDS: MIRALAX PO (22:21)
[2024-04-12] VITALS (8 sets, daily range): BP systolic 106–150; BP diastolic 61–88; PULSE 60–73; O2SAT 96; BMI 23.9
[2024-04-12 07:37] LABS: Glucose - Point of Care 153 mg/dl (70-99)
[2024-04-12 08:10] LABS: INR 1.82; PT 20.9 Sec (11.4-14.6)
[2024-04-12] MEDS: THERAGRAN 1 TABLET PO (08:16)
[2024-04-12] MEDS: VISBIOME 1 CAP PO ×2 (08:16→20:12)
[2024-04-12] MEDS: FARXIGA 10 MG PO (08:16)
[2024-04-12] MEDS: DEMADEX 20 MG PO ×2 (08:16→15:27)
[2024-04-12] MEDS: PROTONIX 40 MG PO ×2 (08:17→20:12)
[2024-04-12] MEDS: FEOSOL 325 MG PO (08:17)
[2024-04-12] MEDS: FIRST-MOUTHWASH BLM SUSPENSION PO ×4 (08:17→21:42)
[2024-04-12] MEDS: MIRALAX 17 GRAMS PO (08:17)
[2024-04-12] MEDS: DUONEB 3 ML INH ×3 (08:25→20:05)
[2024-04-12] MEDS: PULMICORT 0.5 MG INH ×2 (08:25→20:05)
--- NOTE | 2024-04-12 09:13 | W.PN.GI.CBS2 ---
Today's Communication / Plan
-
colonoscopy tomorrow
Assessment / Plan
-
Strep bovis bacteremia:
- INR 1.8 today
- I do believe he will be ready tomorrow for his colonoscopy. clear liquids today and prep for colonoscopy in am
Subjective
Subjective
Date of Service: April 12, 2024
Pt with no GI complaints. INR now 1.8
Objective
Data Reviewed
Laboratory Data:
Laboratory Results
04/10/24 06:43
04/10/24 06:43
Laboratory Results
PT 20.9 Sec (11.4-14.6) H 04/12/24 07:26
INR 1.82 04/12/24 07:26
Magnesium 2.5 mg/dl (1.6-2.3) H 04/10/24 06:43
Total Bilirubin 0.5 mg/dl (0.2-1.3) 04/10/24 06:43
AST 148 U/L (17-59) H 04/10/24 06:43
ALT 147 U/L (0-50) H 04/10/24 06:43
Alkaline Phosphatase 625 U/L (38-126) H 04/10/24 06:43
Vital Signs and I&O:
Vital Signs
Temp Pulse Resp BP Pulse Ox
98.1 F 86 18 130/71 96
04/12/24 07:30 04/12/24 08:59 04/12/24 08:59 04/12/24 08:16 04/12/24 08:59
I&O
04/11/24 04/12/24 04/13/24
06:59 06:59 06:59
Intake Total 1260 / 1260 1050 / 1050
Output Total 1350 / 1350 1675 / 1675
Balance -90 / -90 -625 / -625
Physical Exam
Physical Exam
HEENT: Anicteric
GI: Soft and Non Distended
[2024-04-12] MEDS: NOVOLOG FLEXPEN-LOW RESISTANCE 1 UNITS SC ×2 (09:59→18:05)
--- NOTE | 2024-04-12 12:09 | CM ---
Patient and seen, reports no concerns to CM at this time. Patient for colonoscopy tomorrow. Patient remains on IV antibiotics. CM will continue to follow for discharge planning needs.
Plan; home with [facility] when medically stable.
[2024-04-12 12:17] LABS: Glucose - Point of Care 235 mg/dl (70-99)
[2024-04-12] MEDS: NOVOLOG FLEXPEN-LOW RESISTANCE 2 UNITS SC (13:00)
--- NOTE | 2024-04-12 13:10 | PTCARENOTE ---
pt aaox3. room air breath sounds diminished at base. afib seen on monitor. pt straight cathed q6 hours for yellow urine. pt teaching done on proper handwashing and Steril technique for cathing.
--- NOTE | 2024-04-12 14:14 | W.PN.ID1 ---
Date of Service
Date of Service: April 12, 2024
Today's Communication
- Continue ceftriaxone (d9)
At time of discharge, transition to cefuroxime 500mg po bid through 04/18/24.
Assessment / Plan
# S. bovis bacteremia
# Leukocytosis - resolved
# Asymptomatic Citrobacter bacteruria - s/p fosfomycin x 1 in ED
# Presence of TAVR, ICD
# PCN allergy
- repeat blood cultures no growth to date
- DONTAE no vegetation, appreciate Cardiology.
- CT a/p no abscess in abdomen
- colonoscopy planned for tomorrow; appreciate GI input
- Continue ceftriaxone (d9)
At time of discharge, transition to cefuroxime 500mg po bid through 04/18/24.
#Additional Past Medical History:
Diabetes mellitus type 2.
Aortic stenosis, status post transcatheter aortic valve
replacement.
Ischemic cardiomyopathy status post ICD placement.
Coronary disease, status post CABG.
Hypertension.
CKD3
Peripheral artery disease including carotid stenosis.
History of MSSA bacteremia, pneumonia with negative DONTAE, status
post six weeks of cefazolin completed December 05, 2021.
Atrial fibrillation, on Coumadin.
Obstructive sleep apnea, on CPAP.
Urinary retention, self cath
UTI
Venous stasis, chronic R>LE edema
����������������������������������������������������������
Chief Complaint
-: Bacteremia
Subjective / Review of Systems
No complaints.
Vital Signs / Physical Exam
Vital Signs
Vital Signs
Temp Pulse Resp BP Pulse Ox
97.6 F 82 19 117/75 93
04/12/24 11:30 04/12/24 11:30 04/12/24 11:30 04/12/24 11:30 04/12/24 11:30
Physical Exam
Constitutional: No Acute Distress
Cardiovascular: Regular Rate and S1/S2
Gastrointestinal: Soft, Non Tender and Non Distended
Neurological: AO x 3
Objective Data
Lab Data
Lab Results
04/10/24 06:43
04/10/24 06:43
PT 20.9 Sec (11.4-14.6) H 04/12/24 07:26
INR 1.82 04/12/24 07:26
Estimated Creat Clear 38 ml/min 04/10/24 06:43
Lactic Acid Cancelled 04/04/24 22:30
Total Bilirubin 0.5 mg/dl (0.2-1.3) 04/10/24 06:43
AST 148 U/L (17-59) H 04/10/24 06:43
ALT 147 U/L (0-50) H 04/10/24 06:43
Alkaline Phosphatase 625 U/L (38-126) H 04/10/24 06:43
Most recent labs reviewed.
Micro Results:
04/09/24 11:09 Body Fluid Culture - Final
Pleural Fluid No Growth After 72 Hours
Gram Stain - Final
04/07/24 08:02 Blood Culture - Final
Blood/Venous No Growth - Final Report
04/05/24 16:42 Blood Culture - Final
Blood/Venous No Growth - Final Report
04/05/24 15:16 Blood Culture - Final
Blood/Venous No Growth - Final Report
04/04/24 18:23 Blood Culture - Final
Blood/Venous Streptococcus bovis
Gram Stain - Final
04/04/24 18:23 Blood Culture - Final
Blood/Venous Streptococcus bovis
Gram Stain - Final
04/04/24 17:37 Urine Culture - Final
Urine Citrobacter freundii
Blood Culture Final 04/04/24
Streptococcus bovis Group
(Now classified as Streptococcus gallolyticus)
Organism 1 Streptococcus bovis
1. Streptococcus bovis
M.I.C. RX
--------- ---
Levofloxacin 2 S
Vancomycin 0.5 S
Imaging:
04/07/2024 CT abdomen/pelvis with oral contrast: Severely distended gallbladder containing gallstones. Moderate chronic bilateral renal disease. Large amount of fecal material in the proximal colon. Small to moderate loculated pleural effusion in
the inferior left hemithorax with a surrounding smooth rim of pleural thickening suspicious for empyema. Adjacent moderate subpleural airspace consolidation in the left lower lobe suggesting left lower lobe pneumonia.
04/04/24 CXR: Slightly increased hazy opacity at the left lung base, as described. Probable increased small pleural effusion. Cannot exclude atelectasis or mild pneumonia. Slightly diminished degree of inspiration likely contributing to slight
crowding of parenchymal markings at the right lung base.
04/04/24 Peripheral venous US RLE: no DVT
[2024-04-12 16:55] LABS: Glucose - Point of Care 161 mg/dl (70-99)
--- NOTE | 2024-04-12 17:46 | W.PN.HOSP.TC ---
Today's Communication/Plan
-
INR drifting down
For colonoscopy tomorrow.
Continue antibiotics
Assessment / Plan
Assessment / Plan
Impression:
Presentation with generalized fatigue, chills
Streptococcal bovis bacteremia.
Left pleural effusion
Asymptomatic bacteriuria
Coumadin-induced coagulopathy
Conditions prior to admission:
Chronic CHF reduced EF.
Ischemic cardiomyopathy
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
Aortic stenosis status post TAVR
Moderate to severe MR
Hypertension
Permanent atrial fibrillation
Anticoagulation with Coumadin
History of MSSA bacteremia treated with prolonged IV antibiotics
CKD stage III baseline creatinine 2.1
Obstructive sleep apnea on CPAP at night
Plan
Streptococcus bovis bacteremia
Echocardiogram unremarkable
DONTAE 04/09 negative for endocarditis
Repeat blood culture for clearance negative since 04/05/24
Antibiotics status post ceftriaxone given in the emergency room.
Antibiotics narrowed from vancomycin and ceftriaxone to ceftriaxone alone.
Further workup for cause of strep bovis bacteremia with CT scan of the abdomen pelvis reveals significant left pleural effusion with possible loculation--
Given association of staph bovis bacteremia and occult GI malignancy, will require further evaluation. Most recent colonoscopy 2018.
Left pleural effusion
Patient with prior history of aspiration.
Incidental finding on CT left pleural effusion
Status post left thoracentesis 04/09 with 500 cc of logic fluid removed. Exudative. Gram stain and cultures negative to date.
Pathology pending
Speech and swallow evaluation without IV or clinical aspiration
Asymptomatic Citrobacter freundii bacteriuria. Final urine cultures pending
Chronic urine retention requiring self-catheterization
Teach self-catheterization technique
Status post single dose of fosfomycin on admission
Stomatitis/oral ulcers
Continue Magic mouthwash
Reported epistaxis at home no recurrence since admission.
Permanent atrial fibrillation.
Rate control with metoprolol.
Anticoagulation with Coumadin. INR above 4 on admission. Imaging has been on hold since admission letting INR drift down for pending DONTAE
History of V-fib status post AICD.
Continue amiodarone.
CAD with history of CABG.
Ischemic cardiomyopathy with LVEF of 30%.
Continue aspirin.
Resume torsemide. Monitor of volume status closely.
Continue Farxiga
Obstructive sleep apnea on CPAP at night.
Essential hypertension
Continue amlodipine
Type 2 diabetes by history
Hemoglobin A1c 7.7
Continue Farxiga
CKD stage II-III
Baseline creatinine 1.5�2. Improving down to 1.4 while on torsemide
Monitor closely.
Continue Farxiga.
CODE STATUS DNR
Anticipated Discharge: 24 - 48 hours
Subjective/Interval History
-
Date of Service: April 12, 2024
Objective Data
-
Labs:
Laboratory Results
04/12/24
07:26
PT 20.9 H
INR 1.82
Vital Signs:
Vital Signs
Temp Pulse Resp BP Pulse Ox
98.7 F 76 18 117/75 94
04/12/24 15:00 04/12/24 15:00 04/12/24 15:00 04/12/24 15:27 04/12/24 15:00
I&O
04/11/24 04/12/24 04/13/24
06:59 06:59 06:59
Intake Total 1260 / 1260 1050 / 1050
Output Total 1350 / 1350 1675 / 1675 400 / 400
Balance -90 / -90 -625 / -625 -400 / -400
Physical Exam
-
General: Well Developed and No Apparent Distress
HEENT: Normocephalic, Atraumatic and Moist Mucous Membranes
Respiratory: Clear to Auscultation
Cardiac: Regular Rhythm and S1/S2; Negative Murmur, Rub or Gallop
GI: Soft, Nontender, Nondistended and Normal Bowel Sounds; Negative Organomegaly
Rectal: Deferred by Provider
Musculoskeletal: No Clubbing, No Cyanosis and No Edema
Skin: Negative Rash
Neuro: Nonfocal/Grossly Intact
[2024-04-12] MEDS: TOPROL XL 200 MG PO (18:04)
[2024-04-12] MEDS: NULYTELY SOLUTION 4 LITERS PO (18:04)
[2024-04-12] MEDS: STERILE WATER FOR INJECTION 20 ML IV (18:05)
[2024-04-12] MEDS: ROCEPHIN 2000 MG IV (18:05)
[2024-04-12] MEDS: MIRALAX PO (20:12)
[2024-04-12 21:10] LABS: Glucose - Point of Care 101 mg/dl (70-99)
[2024-04-12] MEDS: MELATONIN 5 MG PO (21:42)
[2024-04-12] MEDS: PROSCAR 5 MG PO (21:42)
[2024-04-12] MEDS: NORVASC 10 MG PO (21:42)
[2024-04-12] MEDS: ZETIA 10 MG PO (21:43)
[2024-04-13 03:20] VITALS: BP 124/72
[2024-04-13 05:33] VITALS: BMI 24.5
[2024-04-13 05:38] LABS: Glucose - Point of Care 121 mg/dl (70-99)
[2024-04-13] MEDS: NOVOLOG FLEXPEN-LOW RESISTANCE SC ×2 (05:38→11:28)
[2024-04-13 07:00] VITALS: BP 121/68
[2024-04-13] MEDS: FARXIGA 10 MG PO (07:38)
[2024-04-13] MEDS: VISBIOME 1 CAP PO (07:38)
[2024-04-13] MEDS: THERAGRAN 1 TABLET PO (07:40)
[2024-04-13] MEDS: PROTONIX 40 MG PO (07:40)
[2024-04-13] MEDS: FEOSOL 325 MG PO (07:40)
[2024-04-13] MEDS: MIRALAX 17 GRAMS PO (07:40)
[2024-04-13] MEDS: DEMADEX 20 MG PO ×2 (07:40→14:24)
[2024-04-13] MEDS: FIRST-MOUTHWASH BLM SUSPENSION PO ×3 (07:42→11:31)
[2024-04-13] MEDS: DUONEB 3 ML INH ×2 (07:59→15:12)
[2024-04-13] MEDS: PULMICORT 0.5 MG INH (07:59)
[2024-04-13] MEDS: NULYTELY SOLUTION 2 LITERS PO (08:22)
[2024-04-13 08:40] LABS: INR 1.64; PT 19.6 Sec (11.4-14.6)
--- NOTE | 2024-04-13 10:15 | W.PN.ID1 ---
Date of Service
Date of Service: April 13, 2024
Today's Communication
At time of discharge, transition to cefuroxime 500mg po bid through 04/18/24.
Assessment / Plan
# S. bovis bacteremia
# Leukocytosis - resolved
# Asymptomatic Citrobacter bacteruria - s/p fosfomycin x 1 in ED
# Presence of TAVR, ICD
# PCN allergy
- repeat blood cultures no growth to date
- DONTAE no vegetation, appreciate Cardiology.
- CT a/p no abscess in abdomen
- colonoscopy planned for today; appreciate GI input
- Continue ceftriaxone (d10)
At time of discharge, transition to cefuroxime 500mg po bid through 04/18/24.
#Additional Past Medical History:
Diabetes mellitus type 2.
Aortic stenosis, status post transcatheter aortic valve
replacement.
Ischemic cardiomyopathy status post ICD placement.
Coronary disease, status post CABG.
Hypertension.
CKD3
Peripheral artery disease including carotid stenosis.
History of MSSA bacteremia, pneumonia with negative DONTAE, status
post six weeks of cefazolin completed December 05, 2021.
Atrial fibrillation, on Coumadin.
Obstructive sleep apnea, on CPAP.
Urinary retention, self cath
UTI
Venous stasis, chronic R>LE edema
����������������������������������������������������������
Chief Complaint
-: Bacteremia
Subjective / Review of Systems
For colonoscopy today.
Vital Signs / Physical Exam
Vital Signs
Vital Signs
Temp Pulse Resp BP Pulse Ox
97.9 F 77 18 121/68 96
04/13/24 07:00 04/13/24 08:01 04/13/24 08:01 04/13/24 07:00 04/13/24 08:01
Physical Exam
Constitutional: No Acute Distress
Gastrointestinal: Soft, Non Tender and Non Distended
Extremities: Edema
Objective Data
Lab Data
Lab Results
04/10/24 06:43
04/10/24 06:43
PT 19.6 Sec (11.4-14.6) H 04/13/24 07:34
INR 1.64 04/13/24 07:34
Estimated Creat Clear 38 ml/min 04/10/24 06:43
Lactic Acid Cancelled 04/04/24 22:30
Total Bilirubin 0.5 mg/dl (0.2-1.3) 04/10/24 06:43
AST 148 U/L (17-59) H 04/10/24 06:43
ALT 147 U/L (0-50) H 04/10/24 06:43
Alkaline Phosphatase 625 U/L (38-126) H 04/10/24 06:43
Most recent labs reviewed.
Micro Results:
04/09/24 11:09 Body Fluid Culture - Final
Pleural Fluid No Growth After 72 Hours
Gram Stain - Final
04/07/24 08:02 Blood Culture - Final
Blood/Venous No Growth - Final Report
04/05/24 16:42 Blood Culture - Final
Blood/Venous No Growth - Final Report
04/05/24 15:16 Blood Culture - Final
Blood/Venous No Growth - Final Report
04/04/24 18:23 Blood Culture - Final
Blood/Venous Streptococcus bovis
Gram Stain - Final
04/04/24 18:23 Blood Culture - Final
Blood/Venous Streptococcus bovis
Gram Stain - Final
04/04/24 17:37 Urine Culture - Final
Urine Citrobacter freundii
Blood Culture Final 04/04/24
Streptococcus bovis Group
(Now classified as Streptococcus gallolyticus)
Organism 1 Streptococcus bovis
1. Streptococcus bovis
M.I.C. RX
--------- ---
Levofloxacin 2 S
Vancomycin 0.5 S
Imaging:
04/07/2024 CT abdomen/pelvis with oral contrast: Severely distended gallbladder containing gallstones. Moderate chronic bilateral renal disease. Large amount of fecal material in the proximal colon. Small to moderate loculated pleural effusion in
the inferior left hemithorax with a surrounding smooth rim of pleural thickening suspicious for empyema. Adjacent moderate subpleural airspace consolidation in the left lower lobe suggesting left lower lobe pneumonia.
04/04/24 CXR: Slightly increased hazy opacity at the left lung base, as described. Probable increased small pleural effusion. Cannot exclude atelectasis or mild pneumonia. Slightly diminished degree of inspiration likely contributing to slight
crowding of parenchymal markings at the right lung base.
04/04/24 Peripheral venous US RLE: no DVT
[2024-04-13 11:00] VITALS: BP 124/59
[2024-04-13] MEDS: STERILE WATER FOR INJECTION 20 ML IV (11:28)
[2024-04-13] MEDS: ROCEPHIN 2000 MG IV (11:29)
--- NOTE | 2024-04-13 13:17 | W.PN.UPDATE ---
Update Note
Progress Note Update
colonoscopy with only a diminutive polyp which was biopsied off.
ok for diet and restart of anticoagulation
will sign off call with questions
[2024-04-13 13:20] VITALS: BP 105/67
[2024-04-13 13:28] LABS: Glucose - Point of Care 122 mg/dl (70-99)
[2024-04-13 13:30] VITALS: BP 116/67
--- NOTE | 2024-04-13 16:02 | W.DS.TRANS ---
DC Summary - [employer]
-
Discharge Instructions:
Discharge Diagnosis/Procedures Streptococcal bovis bacteremia.
Diet Regular
Blood Work INR to be follow with [facility]
Instructions:
Stand-Alone Forms:
Changes to Home Medications: Yes
Discharge Medications:
DC Medications w/original date entered in [employer]
ezetimibe 10 mg tablet 10 mg PO HS High cholesterol 04/03/14
multivitamin with folic acid 400 mcg tablet (Tab-A-Incole) 1 tab PO DAILY Supplement 03/04/17
pwyjhq-ihkxbvb-rbc palm-min 17 capsule (Prostate Therapy capsule) 1 cap PO DAILY Supplement 10/26/18
pantoprazole 40 mg tablet,delayed release 40 mg PO BID Gastrointestinal issue 10/26/18
ferrous sulfate 325 mg (65 mg iron) tablet (FeroSul) 325 mg PO DAILY Supplement 06/20/20
fish oil-dha-epa 1,200 mg-144 mg-216 mg capsule 1 cap PO BID Supplement 06/20/20
amlodipine 10 mg tablet 10 mg PO HS Blood pressure 12/02/21
budesonide 0.5 mg/2 mL suspension for nebulization 0.5 mg inhalation R BID Lung/breathing issues 01/23/22
famotidine 40 mg tablet 40 mg PO HS Gastrointestinal issue 01/23/22
ipratropium 0.5 mg-albuterol 3 mg (2.5 mg base)/3 mL nebulization soln 3 ml inhalation R TID Lung/breathing issues 01/23/22
torsemide 20 mg tablet 20 mg PO BID@0800,1500 Blood pressure 01/23/22
Lactobac no.2-Bifidobac no.1-S. thermo 112.5 billion cell capsule (Visbiome) 1 cap PO BID 04/04/24
dapagliflozin propanediol 10 mg tablet (Farxiga) 10 mg PO DAILY 04/04/24
finasteride 5 mg tablet 5 mg PO HS 04/04/24
metoprolol succinate 200 mg tablet,extended release 24 hr 200 mg PO HS 04/04/24
warfarin 2 mg tablet 4 mg PO SUTUWEFRSA 04/04/24
warfarin 2 mg tablet (Jantoven) 2 mg PO MOTH 04/04/24
cefuroxime axetil 500 mg tablet 500 mg PO Q12H #10 tabs 04/13/24
Home Medication Changes
Antibiotics to complete course
Pending Results: No
[2024-04-13 16:15] VITALS: BP 114/65
--- NOTE | 2024-04-13 16:17 | CM ---
Patient and seen bedside, discussed plan for discharge home today. [facility] made aware of patients discharge. IMM reviewed, signed, placed in chart. CM will continue to follow for discharge planning needs.
Plan; home with [facility], to provide transportation.
[2024-04-13 17:19] LABS: Glucose - Point of Care 239 mg/dl (70-99)
[2024-04-13] MEDS: NOVOLOG FLEXPEN-LOW RESISTANCE 2 UNITS SC (17:19)
[2024-04-13] MEDS: TOPROL XL 200 MG PO (17:19)
== END 2024-04-13 18:29 | disposition home health service (06) | DRG 872 ==
LOC: 4 WEST ACU 19:41
PROVIDERS: Clinical Nurse Specialist Family Health; Internal Medicine; Nurse Practitioner; Radiology Vascular & Interventional Radiology; ADMITTING PHYSICIAN Hospitalist; ATTENDING PHYSICIAN Internal Medicine; CONSULT PHYSICIAN Internal Medicine Cardiovascular Disease; CONSULT PHYSICIAN Internal Medicine Gastroenterology; EMERGENCY PHYSICIAN Emergency Medicine; FAMILY PHYSICIAN Internal Medicine; OTHER PHYSICIAN Internal Medicine Infectious Disease
PROC: 0W9B3ZZ Drainage of Left Pleural Cavity, Percutaneous Approach (ICD-10-PCS; 2024-04-09)
PROC: 0DBH8ZZ Excision of Cecum, Via Natural or Artificial Opening Endoscopic (ICD-10-PCS; 2024-04-13)
DX: R78.81 Bacteremia (principal); I13.0 Hypertensive heart and chronic kidney disease with heart failure and stage 1 through stage 4 chronic kidney disease, or unspecified chronic kidney disease; I50.22 Chronic systolic (congestive) heart failure; I48.21 Permanent atrial fibrillation; J90 Pleural effusion, not elsewhere classified; I45.2 Bifascicular block; D68.9 Coagulation defect, unspecified; E11.22 Type 2 diabetes mellitus with diabetic chronic kidney disease; E11.51 Type 2 diabetes mellitus with diabetic peripheral angiopathy without gangrene; Z66 Do not resuscitate; Z95.2 Presence of prosthetic heart valve; I08.0 Rheumatic disorders of both mitral and aortic valves; N18.30 Chronic kidney disease, stage 3 unspecified; Z86.74 Personal history of sudden cardiac arrest; B95.4 Other streptococcus as the cause of diseases classified elsewhere; B96.89 Other specified bacterial agents as the cause of diseases classified elsewhere; N40.1 Benign prostatic hyperplasia with lower urinary tract symptoms; R33.8 Other retention of urine; K12.1 Other forms of stomatitis; I87.2 Venous insufficiency (chronic) (peripheral); I87.8 Other specified disorders of veins; K59.00 Constipation, unspecified; I25.10 Atherosclerotic heart disease of native coronary artery without angina pectoris; I25.5 Ischemic cardiomyopathy; I45.10 Unspecified right bundle-branch block; E78.5 Hyperlipidemia, unspecified; G47.33 Obstructive sleep apnea (adult) (pediatric); D12.0 Benign neoplasm of cecum; R82.71 Bacteriuria; Z95.1 Presence of aortocoronary bypass graft; Z95.810 Presence of automatic (implantable) cardiac defibrillator; Z79.01 Long term (current) use of anticoagulants; Z79.51 Long term (current) use of inhaled steroids; Z79.82 Long term (current) use of aspirin; Z79.899 Other long term (current) drug therapy; Z86.19 Personal history of other infectious and parasitic diseases; Z87.440 Personal history of urinary (tract) infections; Z87.01 Personal history of pneumonia (recurrent); Z87.19 Personal history of other diseases of the digestive system; Z86.010 Personal history of colon polyps; Z86.73 Personal history of transient ischemic attack (TIA), and cerebral infarction without residual deficits; Z88.0 Allergy status to penicillin; Z88.8 Allergy status to other drugs, medicaments and biological substances
CPT/HCPCS: 88305; 32555; 71045; 71046; 74176; 80048; 80053; 80202; 81003; 81015; 82945; 82962; 83036; 83605; 83615; 83735; 83986; 84157; 85025; 85027; 85610; 87015; 87040; 87070; 87077; 87086; 87186; 87205; 88112; 89051; 92610; 93005; 93306; 93312; 93320; 93325; 93971; 94640; 94660; 96374; 97116; 97163; 97166; 99285

== ENCOUNTER → 2024-04-17 09:49 | Outpatient (REF) | payer MEDICARE, SELFPAY ==
[2024-04-17 11:23] LABS: INR 1.55; PT 18.4 Sec (11.4-14.6)
== END ==
LOC: REG 09:49
PROVIDERS: ATTENDING PHYSICIAN Internal Medicine; FAMILY PHYSICIAN Internal Medicine
DX: I48.0 Paroxysmal atrial fibrillation (principal)
CPT/HCPCS: 36415; 85610

== ENCOUNTER → 2024-04-21 06:52 | Outpatient (REF) | payer MEDICARE, SELFPAY ==
[2024-04-21 08:03] LABS: INR 1.64; PT 19.2 Sec (11.4-14.6)
== END ==
LOC: REG 06:52
PROVIDERS: ATTENDING PHYSICIAN Internal Medicine
DX: I48.0 Paroxysmal atrial fibrillation (principal)
CPT/HCPCS: 36415; 85610

== ENCOUNTER → 2024-05-02 08:08 | Outpatient (REF) | payer MEDICARE, SELFPAY ==
[2024-05-02 09:08] LABS: INR 3.02; PT 31.3 Sec (11.4-14.6)
== END ==
LOC: REG 08:08
PROVIDERS: ATTENDING PHYSICIAN Internal Medicine
DX: I48.0 Paroxysmal atrial fibrillation (principal)
CPT/HCPCS: 36415; 85610

== ENCOUNTER → 2024-05-09 08:40 | Outpatient (REF) | payer MEDICARE, SELFPAY ==
[2024-05-09 09:23] LABS: INR 2.26; PT 24.8 Sec (11.4-14.6)
== END ==
LOC: REG 08:40
PROVIDERS: ATTENDING PHYSICIAN Internal Medicine; FAMILY PHYSICIAN Internal Medicine
DX: I48.0 Paroxysmal atrial fibrillation (principal)
CPT/HCPCS: 36415; 85610

== ENCOUNTER → 2024-05-16 08:40 | Outpatient (REF) | payer MEDICARE, SELFPAY ==
[2024-05-16 09:32] LABS: % Basophils 0.8 % (0-2); % Eosinophils 1.3 % (0-6); % Immature Granulocytes 0.5 % (0-0.5); % Lymphocytes 10.1 % (20.5-51.1); % Monocytes 6.6 % (1.7-9.3); % Neutrophils 80.7 % (42.2-75.2); Absolute Basophils 0.1 10^3/uL (0-0.2); Absolute Eosinophils 0.1 10^3/uL (0-0.7); Absolute Immature Granulocytes 0.1 10^3/uL (0-0.05); Absolute Lymphocytes 1.1 10^3/uL (1.2-3.4); Absolute Monocytes 0.7 10^3/uL (0.1-0.6); Hematocrit 40.9 % (39.0-52.0); Hemoglobin 13.4 g/dL (13.0-18.0); Mean Corp Hgb Conc. 32.8 g/dL (33.0-37.0); Mean Corpuscular Hgb 28.9 pg (27.0-31.0); Mean Corpuscular Volume 88.1 fL (80.0-94.0); Mean Platelet Volume 10.3 fL (7.4-10.4); Nucleated Red Blood Cells % 0 % (-); Platelet Count 195 10^3/uL (130-400); Red Blood Cell Count 4.64 10^6/uL (4.70-6.10); Red Cell Dist. Width 17.4 % (11.5-14.5); White Blood Cell Count 11.1 10^3/uL (4.8-10.8)
[2024-05-16 09:51] LABS: INR 2.61; PT 27.8 Sec (11.4-14.6)
[2024-05-16 10:28] LABS: ALT (SGPT) 13 U/L (0-50); AST (SGOT) 23 U/L (17-59); Albumin 4.3 g/dl (3.5-5.0); Alkaline Phosphatase 92 U/L (38-126); Blood Urea Nitrogen 45 mg/dl (9-20); Calcium 9.2 mg/dl (8.4-10.2); Carbon Dioxide 27 mmol/L (22-30); Chloride 101 mmol/L (98-107); Glucose 168 mg/dl (70-99); HDL Cholesterol 52 mg/dl; LDL Cholesterol, Calculated 114 mg/dl; Potassium 4.4 mmol/L (3.5-5.1); Sodium 138 mmol/L (135-145); Total Bilirubin 0.7 mg/dl (0.2-1.3); Total Cholesterol 201 mg/dl (50-199); Total Protein 6.9 g/dl (6.3-8.2); Triglyceride 179 mg/dl (10-149); Uric Acid 6.6 mg/dl (3.5-8.5); Very Low Density Lipoprotein 35 mg/dl (0-30); eGFR 28.35
[2024-05-16 10:39] LABS: Vitamin D, 25-OH*** 37.8 ng/mL (30-80)
[2024-05-16 10:53] LABS: TSH Reflex To Free T4 1.69 uIU/ml (0.47-4.68)
[2024-05-16 11:12] LABS: Glycohemoglobin (HgbA1c) 6.8 % (4.0-5.6)
[2024-05-16 11:19] LABS: Microalbumin, Random Urine 21.7 mg/dl (0.6-1.7); Microalbumin/creatinine Ratio 405.6 mg/g
[2024-05-16 11:20] LABS: Intact PTH 144.3 pg/ml (13.6-85.8)
== END ==
LOC: REG 08:40
PROVIDERS: ATTENDING PHYSICIAN Internal Medicine; FAMILY PHYSICIAN Nurse Practitioner Primary Care; REFERRING PHYSICIAN Specialist
DX: I48.0 Paroxysmal atrial fibrillation (principal); D50.0 Iron deficiency anemia secondary to blood loss (chronic); I10 Essential (primary) hypertension; E78.5 Hyperlipidemia, unspecified; E11.21 Type 2 diabetes mellitus with diabetic nephropathy; N18.4 Chronic kidney disease, stage 4 (severe); E78.2 Mixed hyperlipidemia; Z87.39 Personal history of other diseases of the musculoskeletal system and connective tissue
CPT/HCPCS: 36415; 80053; 80061; 82043; 82306; 82570; 83036; 83970; 84443; 84550; 85025; 85610

== ENCOUNTER → 2024-05-23 07:12 | Outpatient (REF) | payer MEDICARE, SELFPAY ==
[2024-05-23 08:38] LABS: INR 3.15; PT 32.3 Sec (11.4-14.6)
== END ==
LOC: REG 07:12
PROVIDERS: ATTENDING PHYSICIAN Internal Medicine
DX: I48.0 Paroxysmal atrial fibrillation (principal)
CPT/HCPCS: 36415; 85610

== ENCOUNTER → 2024-06-01 07:40 | Outpatient (REF) | payer MEDICARE, SELFPAY | LOC: RAD 07:40 | PROVIDERS: ATTENDING PHYSICIAN Nurse Practitioner Primary Care; FAMILY PHYSICIAN Internal Medicine Geriatric Medicine | DX: E11.59 Type 2 diabetes mellitus with other circulatory complications (principal); E78.2 Mixed hyperlipidemia; I65.23 Occlusion and stenosis of bilateral carotid arteries; R09.89 Other specified symptoms and signs involving the circulatory and respiratory systems | CPT/HCPCS: 93880 ==

== ENCOUNTER 2024-06-22 07:34 | Outpatient (RCR) | payer MEDICARE, SELFPAY ==
[2024-06-22 08:20] VITALS: BP 117/70
[2024-06-22] MEDS: SODIUM BICARBONATE 1150 MEQ IV (08:37)
[2024-06-22 15:10] VITALS: BP 118/74
== END 2024-06-23 09:49 | disposition home or self-care (01) ==
LOC: OID 07:34
PROVIDERS: ATTENDING PHYSICIAN Surgery Vascular Surgery; FAMILY PHYSICIAN Nurse Practitioner Primary Care
DX: I65.23 Occlusion and stenosis of bilateral carotid arteries (principal); Z92.89 Personal history of other medical treatment
CPT/HCPCS: 96365; 96366

== ENCOUNTER → 2024-06-22 08:21 | Outpatient (REF) | payer MEDICARE, SELFPAY | LOC: RAD 08:21 | PROVIDERS: ATTENDING PHYSICIAN Surgery Vascular Surgery; FAMILY PHYSICIAN Nurse Practitioner Primary Care | DX: I65.23 Occlusion and stenosis of bilateral carotid arteries (principal) | CPT/HCPCS: 70496; 70498; Q9967 ==

== ENCOUNTER → 2024-06-26 08:22 | Outpatient (REF) | payer MEDICARE, SELFPAY ==
[2024-06-26 09:49] LABS: INR 2.89; PT 30.2 Sec (11.4-14.6)
[2024-06-26 10:23] LABS: Albumin 4.4 g/dl (3.5-5.0); Blood Urea Nitrogen 61 mg/dl (9-20); Calcium 9.2 mg/dl (8.4-10.2); Carbon Dioxide 26 mmol/L (22-30); Chloride 100 mmol/L (98-107); Glucose 153 mg/dl (70-99); Phosphorus 4.3 mg/dl (2.5-4.5); Potassium 4.6 mmol/L (3.5-5.1); Sodium 138 mmol/L (135-145); eGFR 20.61
== END ==
LOC: REG 08:22
PROVIDERS: ATTENDING PHYSICIAN Internal Medicine; FAMILY PHYSICIAN Specialist
DX: I48.0 Paroxysmal atrial fibrillation (principal); N18.4 Chronic kidney disease, stage 4 (severe)
CPT/HCPCS: 36415; 80069; 85610

== ENCOUNTER → 2024-07-11 12:26 | Outpatient (REF) | payer MEDICARE, SELFPAY ==
[2024-07-11 14:27] LABS: ALT (SGPT) 21 U/L (0-50); AST (SGOT) 27 U/L (17-59); Albumin 4.6 g/dl (3.5-5.0); Alkaline Phosphatase 91 U/L (38-126); Blood Urea Nitrogen 82 mg/dl (9-20); Calcium 9.4 mg/dl (8.4-10.2); Carbon Dioxide 26 mmol/L (22-30); Chloride 101 mmol/L (98-107); Glucose 132 mg/dl (70-99); Phosphorus 3.8 mg/dl (2.5-4.5); Potassium 4.2 mmol/L (3.5-5.1); Sodium 143 mmol/L (135-145); Total Bilirubin 0.4 mg/dl (0.2-1.3); Total Protein 7.1 g/dl (6.3-8.2); eGFR 22.39
== END ==
LOC: REG 12:26
PROVIDERS: ATTENDING PHYSICIAN Specialist; FAMILY PHYSICIAN Nurse Practitioner Primary Care
DX: N18.4 Chronic kidney disease, stage 4 (severe) (principal); I10 Essential (primary) hypertension
CPT/HCPCS: 36415; 80053; 84100

== ENCOUNTER 2024-08-03 06:10 | Inpatient (IN) | payer MEDICARE, SELFPAY ==
[2024-07-28 09:18] VITALS: BMI 28.0
[2024-07-28 09:46] LABS: % Basophils 0.7 % (0-2); % Eosinophils 1.8 % (0-6); % Immature Granulocytes 0.4 % (0-0.5); % Lymphocytes 11.1 % (20.5-51.1); % Monocytes 7.2 % (1.7-9.3); % Neutrophils 78.8 % (42.2-75.2); Absolute Basophils 0.1 10^3/uL (0-0.2); Absolute Eosinophils 0.2 10^3/uL (0-0.7); Absolute Lymphocytes 1.1 10^3/uL (1.2-3.4); Absolute Monocytes 0.7 10^3/uL (0.1-0.6); Absolute Neutrophils 8.1 10^3/uL (1.4-6.5); Hematocrit 41.6 % (39.0-52.0); Mean Corp Hgb Conc. 33.7 g/dL (33.0-37.0); Mean Corpuscular Volume 89.1 fL (80.0-94.0); Mean Platelet Volume 10.4 fL (7.4-10.4); Nucleated Red Blood Cells % 0 % (-); Platelet Count 201 10^3/uL (130-400); Red Blood Cell Count 4.67 10^6/uL (4.70-6.10); Red Cell Dist. Width 17.2 % (11.5-14.5); White Blood Cell Count 10.2 10^3/uL (4.8-10.8)
[2024-07-28 09:54] LABS: INR 3.12; PT 32.1 Sec (11.4-14.6)
[2024-07-28 09:55] LABS: APTT 44.2 Sec (23.4-35.0)
[2024-07-28 10:10] LABS: Blood Urea Nitrogen 64 mg/dl (9-20); Calcium 9.2 mg/dl (8.4-10.2); Carbon Dioxide 23 mmol/L (22-30); Chloride 104 mmol/L (98-107); Estimated Creatinine Clearance 22 ml/min; Glucose 132 mg/dl (70-99); Potassium 4.3 mmol/L (3.5-5.1); Sodium 143 mmol/L (135-145)
--- NOTE | 2024-08-01 08:27 | PTCARENOTE ---
Patients 07/28 BUN 64, INR-3.12 and CXR abnormal- [facility] @ Dr. Tavarez office notified
--- NOTE | 2024-08-01 15:47 | PTCARENOTE ---
Abnormal chest x-ray on 07/28/24. Dr. Sweet aware. No intervention required.
[2024-08-03] VITALS (14 sets, daily range): BP systolic 96–121; BP diastolic 63–76; PULSE 2–80; BMI 25.1
[2024-08-03 06:58] LABS: Glucose - Point of Care 107 mg/dl (70-99)
[2024-08-03] MEDS: BACTROBAN NASAL 1 GRAM NASAL (07:06)
[2024-08-03] MEDS: NSS 500 IV (07:07)
[2024-08-03] MEDS: PERIDEX 0.12% ORAL RINSE 15 ML PO (07:07)
--- NOTE | 2024-08-03 07:08 | W.SUR.PREOP ---
Pre-Operative Surgical Note
-
I have examined this patient prior to the performance of the scheduled procedure.
The patient's condition is unchanged from the time of the current History and
Physical and the patient is able to undergo the scheduled procedure.
[2024-08-03 07:32] LABS: INR 1.25; PT 15.7 Sec (11.4-14.6)
--- NOTE | 2024-08-03 09:25 | W.SUR.POST ---
Surgical Immediate Post Op
Note
Pre Op Diagnosis: Carotid stenosis
Post Op Diagnosis: same
Procedure Performed: Left TCAR
Primary Surgeon: Jose Antonio
Secondary Surgeons: David SORENSON
Anesthesia: general
Estimated Blood Loss: 25cc
Fluids: see anesthesia flow sheet
Drains/Shunts: none
Specimens/Cultures: carotid plaque
Doppler/Duplex/Angio (Y/N): Y
Complications: none
Operative Findings: Woke from anesthesia moving all extremities
--- NOTE | 2024-08-03 09:30 | OR.RPT ---
Operative Report
Operative Report
PROCEDURE DATE: 08/03/2024
Preoperative diagnosis:
1. Severe recurrent left carotid bulb stenosis, status post prior remote left carotid endarterectomy.
2. Chronic right carotid artery occlusion.
Postoperative diagnosis: same
Procedure:
1. Open exposure of left common carotid artery.
2. Transcarotid left carotid artery revascularization with stent (TCAR) with Enroute 9mm x 30mm self-expanding stent, and utilizing Enroute CHIE[employer] OF [employer]Y flow reversal intraprocedural neuro protection.
3. Intraoperative EEG/SSEP monitoring.
4. Supervision and interpretation
CPT code 59466, SVS VQI TCAR #[id number]
Surgeon: Jose Antonio
Flour Distributor: Maia Hernandez NP, required for all aspects of procedure including assistance with traction/countertraction, following a suture, assistance with closure.
Complications: None
Anesthesia: General
Indications for procedure:
Severe carotid bulb left sided stenosis recurrently (history of remote endarterectomy prior to my meeting him) in the setting of chronic right carotid occlusion. Risk/benefit/alternatives of left TCAR were fully discussed. Patient understood all
wish to proceed.
Description of procedure:
Patient was identified brought to the operating room placed on the table in supine position. After the adequate administration of anesthesia and perioperative antibiotics he was prepped and draped in the standard surgical fashion. A standard
preoperative timeout was undertaken and everybody was in agreement the plan. A longitudinal incision was made at the base of the left neck between the heads of the sternocleidomastoid muscle just superior to the clavicle. This incision was carried
through the skin subcutaneous tissue. Using the electrocautery dissection was carried through the platysma muscle layer and then in the plane between the heads of the sternocleidomastoid muscle. Then using a combination of sharp dissection with
the Metzenbaum scissors and electrocautery I dissected along the anterior medial border of the internal jugular vein. In trying to dissect along the medial aspect of the vein I noted sudden bleeding from either the branch or a crotch of confluence
of vein. I immediately was able to control this with 5-0 and 6-0 Prolene [id number] sutures. Then I was able to identify that the main vein appeared to have a branch or a tortuosity that resulted in it crossing over the common carotid artery
and it was in this crotch that there was bleeding. Therefore, the carotid artery became more superficial just distal to here (cephalad), and therefore I was able to expose it from the lateral side (lateral to the vein) without any difficulty.
Therefore from the lateral side just distal to that confluence or crossing of the vein over the common carotid artery, is able to expose it. I carefully circumferentially dissected it proximally away from surrounding structures to great care to
avoid any injury to the structures. A vessel loop was passed around it. The common carotid artery was dissected circumferentially only in the proximal portion of the exposed artery, and the anterior surface was dissected for another 2 cm. Next,
a 5-0 Prolene pursestring stitch was placed on the anterior middle surface of the common carotid artery at the anticipated puncture/cannulation site. The patient was given 8000 units of intravenous heparin.
Next, the right common femoral vein was punctured with a micropuncture kit under direct duplex ultrasound guidance. An 8 Thai venous sheath was placed over 0.035 inch wire into the vein. The sheath was flushed.
Next, while maintaining anterior tension on the vessel loop (single looped), the common carotid artery was punctured with a micropuncture needle (premarked) to only 1 cm and a premarked 0.014 inch wire was inserted and then the needle was exchanged
out for a premarked micropuncture sheath and advanced to 3 cm anita. The dilator and wire were then removed. Left anterior oblique angiogram was performed. This delineated the carotid bifurcation. It confirmed the severe stenosis in the distal
common carotid artery approaching the bulb. The carotid bifurcation was marked on the screen. I then advanced a 0.035 inch wire with a J curve at the tip. This was stopped just short of the bifurcation. I then exchanged the micropuncture sheath
out for the [address] sheath, which was advanced to the footplate under fluoroscopy with careful vigilance of the distal tip of the wire. Once advanced to the footplate, the introducer and wire were removed. The tension from the
vessel loop was released. And the sheath was secured to the skin with silk suture. The sheath was burped back and also flushed carefully. Next repeat imaging was undertaken confirming the best angulation of the gantry for imaging. At this point,
the angioplasty balloon and stent were prepared. We paused to confirm the plan regarding balloon/stent, and confirmed adequate ACT over 300. Next, I connected the arterial sheath to the venous sheath with the filter section. As such passive flow
reversal was initiated. There were no evidence of any EEG or SSEP changes. We flushed the venous sheath to confirm adequate passive flow reversal.
At this point given that we were otherwise ready, I clamped the common carotid artery proximally (proximal to the pursestring site) thereby initiating active flow reversal. Again I flushed the venous sheath to confirm active flow reversal. There
was no EEG or SSEP changes. I now used a precurved 0.014 inch wire and roadmap assisted fluoroscopy guidance to cannulate the internal carotid artery carefully. I was able to gain access into the distal cervical/proximal intracranial internal
carotid artery. Next I used a balloon which was a 5 mm x 30 mm Cordis standard angioplasty balloon. I then pre-angioplastied the stenosis. The patient's blood pressure had also been optimized after discussion with our anesthesiology colleagues
prior to initiation of flow reversal. I then quickly exchanged out my balloon catheter for the stent (9mm x 30mm Enroute stent). The stent was positioned under roadmap guidance. When I was happy with the positioning I then unsheathed in the
standard fashion. The stent delivery device was then removed. Completion angiography was undertaken after 1 to 2 minutes of waiting after deployment of the stent for the flow reversal to take effect. Completion angiogram demonstrated a good
result but some mild residual stenosis , and it was done in 2 obliquities to confirm. Due to mild residual stenosis, I felt post angioplasty was warranted. I therefore used a 5 mm angioplasty balloon to reangioplasty within the stent. Completion
angiogram now demonstrated an excellent result with no significant residual stenosis. Good intracranial filling was noted. This point is very satisfied. The 0.014 inch wire was then removed from the internal carotid artery. Next, the common
carotid artery was unclamped. Finally I disconnected the flow reversal circuit.
Now, I tied down my 5-0 Prolene pursestring suture on the common carotid artery while removing the sheath. An additional 6-0 [id number]-th-plqfw suture was placed for full hemostasis. We gave protamine to reverse the heparin. I irrigated the incision
site and confirmed full hemostasis. Then, we closed in layers using single [id number]-[id number] 2-0 Vicryl to reapproximate the sternocleidomastoid heads. Then used 3-0 Vicryl platysma muscle running layer followed by 4-0 Monocryl subcuticular running
stitch. Dermabond was applied. The femoral vein sheath was also removed and manual pressure was applied to that site and hemostasis was noted there as well. The patient tolerated the procedure well. He awoke moving all 4 extremities to command.
--- NOTE | 2024-08-03 09:40 | CON.INTV ---
Consultation
Consultation Request
Date/Time Consultation Requested: 08/03/2024 - 916
Date/Time Consultation Performed: 08/03/2024 - 935
Requesting Provider: DELTA Peck
Performing Provider: Chandler Sanchez MD
Reason for Consultation: s/p TCAR
Medical History
-
Chief Complaint: Elective L-TCAR
History of Present Illness:
79-year-old male non-smoker with a past medical history of chronic HFrEF s/p AICD, history of STEMI/V-fib cardiac arrest, aortic stenosis s/p TAVR, DM type II, CAD s/p CABG, hypertension, dyslipidemia, AURA on BiPAP, history of COPD, CKD, history of
GI bleed s/p EGD with polyp removal/clip (06/2017), valvular heart disease, paroxysmal A-fib/a flutter on warfarin, chronic right carotid artery stenosis with history of left carotid artery stenosis s/p left carotid endarterectomy and NAFLD who
presents with elective left TCAR. Patient known to vascular surgery service with last office visit on 06/30/[address] Brady. Patient has chronic right-sided carotid occlusion and left distal common carotid artery/bulb severe stenosis. Vascular
intervention with left TCAR was recommended and he was loaded with Plavix and aspirin 1 week prior to surgery and was instructed to hold his Coumadin 4 days prior. Today he underwent open exposure of his left common carotid artery with transcarotid
left carotid artery revascularization with stent. There were no immediate complications and he was transferred to the ICU postoperatively with wage and salary specialist services consulted for additional management/recommendations.
When I saw the pt he was in bed in NAD, , Ria, at bedside. All questions were answered. He has no complaints, and is breathing comfortably on room air. Per and patient, he has an advanced directive at home saying he does not want to
be resuscitated if his heart were to stop or if he stops breathing. He would not a ventilator or be on life support. I asked the to bring in a copy of this advanced directive. His HR is 74, BP 140/62, SpO2 94% on RA and breathing at 16
b/min.
Of note, patient follows with us in the [facility] office with last visit on 01/28/2024 with DELTA Larsen. Patient has AURA on CPAP with history of COPD, restrictive lung disease, and chronic HFrEF. Also history of aortic stenosis s/p TAVR. Last
PFT was on that office visit on 01/28/2024 showing mild�moderate restrictive lung disease with T% and VC: 76%. Diffusion capacity was moderately reduced with DLco: 41%, with only mild reduction when accounting for alveolar volume involving gas
exchange (DLco/VA: 67%).
PMHx: Aortic valve stenosis s/p TAVR, DM type II, chronic HFrEF s/p AICD, history of STEMI/V-fib cardiac arrest, hyperlipidemia, CAD s/p CABG, hypertension, dyslipidemia, AURA on BiPAP (11/7 cmH2O), cholelithiasis, valvular heart disease with MR, TR
and AI, history of bifascicular block, A-fib/a flutter, left + right carotid artery stenosis with history of left carotid endarterectomy, GERD, nonalcoholic fatty liver disease, peripheral neuropathy, history of pneumonia (08/2020), history of GI
bleed s/p EGD with polyp removal/clip (06/2017), CKD
PSHx: TAVR, AICD, left carotid endarterectomy, sebaceous cyst removal from back, liver biopsy, CABG
Past Medical History
Past Medical History: Other (Above as per HPI)
Past Surgical History: Other (Above as per HPI)
Social History
Tobacco: Non-smoker
Alcohol: None
Drug: None
Personal:
Living: With Family
Employment: Other (Worked in farming, industrial and engineering)
Environmental Exposures: Was in [place] with some secondhand smoke exposure
Family History
Family History: CAD (Sister) and Other (Father: from suicide; mother: Parkinson disease)
Allergies / Home Medications
Allergies
Allergy/AdvReac Type Severity Reaction Status Date / Time
Cephalosporins Allergy Unknown Hives Verified 08/03/24 06:54
Penicillins Allergy Hives; Verified 08/03/24 06:54
Tolerated
Cefazolin
Oct 2021
metformin AdvReac kidney Verified 08/03/24 06:54
disease
Kteirur-FBQ-WqJ Reductase AdvReac elevated Verified 08/03/24 06:54
Inhibitor liver
[Przbwcg-Vib-Gzq Reductase enzymes,
Inhibitor] 'makes me
crazY'
Home Medications
�Medication �Instructions �Recorded �Confirmed �Last Taken �Type
ezetimibe 10 mg tablet 10 mg PO HS High cholesterol 04/03/14 08/03/24 08/02/24 18:00 History
multivitamin with folic acid 400 1 tab PO DAILY Supplement 03/04/17 08/03/24 08/02/24 08:00 History
mcg tablet (Tab-A-Nicole)
pantoprazole 40 mg tablet,delayed 40 mg PO BID Gastrointestinal issue 10/26/18 08/03/24 07/27/24 07:00 History
release
fish oil-dha-epa 1,200 mg-144 1 cap PO BID Supplement 06/20/20 08/03/24 08/02/24 18:00 History
mg-216 mg capsule
amlodipine 10 mg tablet 10 mg PO HS Blood pressure 12/02/21 08/03/24 08/02/24 18:00 History
budesonide 0.5 mg/2 mL suspension 0.5 mg inhalation R BID 01/23/22 08/03/24 08/02/24 18:00 History
for nebulization Lung/breathing issues
famotidine 40 mg tablet 40 mg PO HS Gastrointestinal issue 01/23/22 08/03/24 08/02/24 18:00 History
ipratropium 0.5 mg-albuterol 3 mg 3 ml inhalation R TID 01/23/22 08/03/24 08/02/24 18:00 History
(2.5 mg base)/3 mL nebulization Lung/breathing issues
soln
torsemide 20 mg tablet 20 mg PO BID@0800,1500 Blood 01/23/22 08/03/24 08/02/24 15:00 History
pressure
Lactobac no.2-Bifidobac no.1-S. 1 cap PO BID 04/04/24 08/03/24 08/02/24 18:00 History
thermo 112.5 billion cell capsule
(Visbiome)
dapagliflozin propanediol 10 mg 10 mg PO DAILY 04/04/24 08/03/24 07/28/24 07:00 History
tablet (Farxiga)
finasteride 5 mg tablet 5 mg PO HS 04/04/24 08/03/24 08/02/24 18:00 History
metoprolol succinate 200 mg 200 mg PO HS 04/04/24 08/03/24 08/02/24 18:00 History
tablet,extended release 24 hr
allopurinol 100 mg tablet 200 mg PO HS 06/22/24 08/03/24 08/02/24 18:00 History
calcium polycarbophil 625 mg 625 mg PO DAILY 06/22/24 08/03/24 08/02/24 08:00 History
tablet (FiberCon)
ferrous sulfate 325 mg (65 mg 325 mg PO DAILY 06/22/24 08/03/24 08/02/24 08:00 History
iron) tablet (iron)
clopidogrel 75 mg tablet (Plavix) 75 mg PO DAILY 07/25/24 08/03/24 08/02/24 07:00 History
warfarin 1 mg tablet 1.5 mg PO TH 07/25/24 07/25/24 Unknown History
warfarin 1 mg tablet 2 mg PO SUMOTUWEFRSA 07/25/24 08/03/24 07/28/24 18:00 History
Review of Systems
-
History Source: Patient
All other systems: Negative unless noted
Vitals / Labs / Diagnostic Testing
Vital Signs
Temp Pulse Resp BP Pulse Ox
97.0 F 73 19 110/66 93
08/03/24 10:45 08/03/24 10:15 08/03/24 10:15 08/03/24 10:15 08/03/24 10:45
Lab Data
08/03/24 10:11
08/03/24 10:11
Laboratory Results
08/03/24 08/03/24
07:06 10:11
PT 15.7 H 17.0 H
INR 1.25 1.38
APTT 37.2 H
Diagnostic Testing:
Physical Exam
-
HEENT: Normocephalic, Anicteric and Other (Vertical incision seen along left anterior neck with no active bleeding)
Cardiovascular: Irregular Rhythm (Irregularly irregular), Peripheral Edema (negative) and Other (Normal rate)
Respiratory: Clear, Wheeze (negative), Rales (negative), Rhonchi (negative) and Non-Labored Respirations
GI: Soft, Non Distended, Non Tender and Normal Bowel Sounds
Neurology: Awake and Alert
Skin: Warm and Dry
General: Respiratory Distress (negative), Comfortable, Fever (negative) and Chills (negative)
Assessment
-
Assessment: 79-year-old male non-smoker with a past medical history of chronic HFrEF s/p AICD, history of STEMI/V-fib cardiac arrest, aortic stenosis s/p TAVR, DM type II, CAD s/p CABG, hypertension, dyslipidemia, AURA on CPAP, history of COPD, CKD,
history of GI bleed s/p EGD with polyp removal/clip (06/2017), valvular heart disease, paroxysmal A-fib/a flutter on warfarin, chronic right carotid artery stenosis with history of left carotid artery stenosis s/p left carotid endarterectomy and
NAFLD who presents with elective left TCAR. Patient known to vascular surgery service with last office visit on 06/30/[address] Brady. Patient has chronic right-sided carotid occlusion and left distal common carotid artery/bulb severe stenosis.
Vascular intervention with left TCAR was recommended and he was loaded with Plavix and aspirin 1 week prior to surgery and was instructed to hold his Coumadin 4 days prior. On 08/03/2024 he underwent open exposure of his left common carotid artery
with transcarotid left carotid artery revascularization with stent. There were no immediate complications and he was transferred to the ICU postoperatively with wage and salary specialist services consulted for additional management/recommendations.
Chronic conditions NURSE PRACTICAL: Aortic valve stenosis s/p TAVR, DM type II, chronic HFrEF s/p AICD, history of STEMI/V-fib cardiac arrest, hyperlipidemia, CAD s/p CABG, hypertension, dyslipidemia, AURA on BiPAP, cholelithiasis, valvular heart disease with
MR, TR and AI, history of bifascicular block, A-fib/a flutter, left + right carotid artery stenosis with history of left carotid endarterectomy, GERD, nonalcoholic fatty liver disease, peripheral neuropathy, history of pneumonia (08/2020), history
of GI bleed s/p EGD with polyp removal/clip (06/2017), CKD
Impression:
#Severe recurrent left carotid bulb stenosis with history of left carotid endarterectomy s/p transcarotid left carotid artery revascularization with stent (TCAR) utilizing a Enroute GENERATOR OPERATOR STRAIGHT BEVEL GEAR flow reversal neuroprotection (POD #0)
#Chronic right carotid artery occlusion
#Anemia
#Leukocytosis � likely reactive
#ALANA on CKD (baseline creatinine 1.6)
#DM type II c/b hyperglycemia (last HbA1C: 6.8 on 05/16/2024)
#Chronic HFrEF s/p AICD
#Aortic stenosis s/p TAVR
#Paroxysmal A-fib with history of A-flutter on coumadin
#AURA on BiPAP 11/7cmH2O
Plan:
Postoperative surgical intensive care unit monitoring
Supplemental oxygen as needed to maintain SpO2 >90-94%
prn nebulized bronchodilators - not currently bronchospastic
Incentive spirometry encouraged 10x per hour for at least 4 hrs a day
Aspiration precautions
Pain control
Continue nocturnal BiPAP with sleep (home settings = IPAP 11 cmH2O, EPAP 7 cmH2O) --> his residual AHI over the 30-day period from 02/08 - 03/09/2024 was 17.2. I will adjust settings to 10/15 to see if this helps improve his sleep quality while
hospitalized and this should be further addressed as an outpatient
Neuro and vascular checks per protocol
Maintain MAP>65
Replete electrolytes with K>4, Mg>2
Maintain euglycemia with goal BG 140-180
Sodium/fluid restricted diet due to Hx of chronic HFrEF
Monitor HR with goal <110bpm
Vascular surgery following-correspondence and operative notes reviewed
Transfuse blood products as needed to keep Hb>7g/dL, and plt>50k (given post-operative status)
DVT prophylaxis
Early nutrition
Early mobilization
Patient does follow with us in the office with last visit on with DELTA Larsen. His last office visit was supposed to be on 04/26/2024 but it was canceled. He is recommended to make a follow-up appointment to continue to see us
for continued management of his AURA on CPAP and history of COPD.
Critical care statement: A total of 44 minutes of critical care time was provided for this patient today. This includes management of unstable vital signs, evaluation of the patient at bedside, reviewing the patient's pertinent medical records
including radiographs, microbiology, laboratory evaluations, and discussion with primary team, consultants, pharmacy, nutrition, physical therapy, case management, charge nurse, critical care nursing, and respiratory therapy.
[2024-08-03 09:56] LABS: Glucose - Point of Care 196 mg/dl (70-99)
[2024-08-03] MEDS: PLAVIX 75 MG PO (10:15)
[2024-08-03] MEDS: NOVOLOG vial 2 UNITS SC (10:15)
[2024-08-03 10:28] LABS: Hematocrit 37.4 % (39.0-52.0); Hemoglobin 12.7 g/dL (13.0-18.0); Mean Corpuscular Volume 88.2 fL (80.0-94.0); Mean Platelet Volume 10.2 fL (7.4-10.4); Platelet Count 184 10^3/uL (130-400); Red Blood Cell Count 4.24 10^6/uL (4.70-6.10); Red Cell Dist. Width 16.4 % (11.5-14.5); White Blood Cell Count 14.3 10^3/uL (4.8-10.8)
[2024-08-03 10:38] LABS: INR 1.38
[2024-08-03 10:39] LABS: APTT 37.2 Sec (23.4-35.0)
[2024-08-03 10:58] LABS: Blood Urea Nitrogen 60 mg/dl (9-20); Calcium 8.1 mg/dl (8.4-10.2); Carbon Dioxide 20 mmol/L (22-30); Chloride 101 mmol/L (98-107); Estimated Creatinine Clearance 29 ml/min; Glucose 164 mg/dl (70-99); Potassium 4.7 mmol/L (3.5-5.1); Sodium 136 mmol/L (135-145); eGFR 31.43
[2024-08-03 11:52] LABS: Magnesium 2.6 mg/dl (1.6-2.3)
[2024-08-03] MEDS: NSS 1000 IV ×2 (12:09→20:56)
--- NOTE | 2024-08-03 12:24 | PTCARENOTE ---
Pt admitted to ICU bed 3359 from PACU at 1100. Pt AAOx3. HR 70s. Vpaced beats noted. BP stable via a-line. Pt reported B/L hand tingling. states he has neuropathy in hands and feet. Pt stated he had this feeling before but not all the
time. Vascular TRACTOR DRILL OPERATOR made aware. Decreased sensation in feet at baseline. Strength equal bilaterally in hands and feet. No facial droop noted. Tongue midline. Left neck and right groin sites C/D/I.
[2024-08-03] MEDS: DUONEB 3 ML INH ×2 (12:41→19:15)
[2024-08-03] MEDS: TYLENOL 650 MG PO (14:17)
[2024-08-03 14:48] LABS: ACT-LR - POC > 397 Seconds (116-155)
[2024-08-03] MEDS: HEPARIN 5000 UNITS SC ×2 (16:27→23:04)
--- NOTE | 2024-08-03 16:30 | PTCARENOTE ---
Rec'd pt at 1500 resting in bed. Neuro check completed with offgoing RN. Rec'd pt awake alert and oriented. Speech is sl slow but clear and appropriate. Pt is [facility]. Denies headache or dizziness. Tongue is midline. Smile is even. DEL CASITLLO - strength is
good. Pt with chronic neuropathy in his arms and legs. States most of his discomfort is in his arms and legs. 2-3/10 post earlier Tylenol. Skin is pale pink wm and dry. Pt with multiple bruises on arms and legs. L neck incision is approximated with
surgical adhesive present. Some eccymosis at the site but site is soft and no drainage. R groin site is Clean D+I. Tegaderm over site. No swelling or drainage. Respirs are unlabored on RA with sats of 93-94%. BS are sl decreased and coarse at
intervals. Coughs an occasional moist non-prod cough. Monitor AFib with V pacing and BB config. + murmur. Tr R LE edema. + pulses. Able to palpate R DP and PT pulse. L PT and DP pulse are weak to palp but all are easily audible with the doppler. VS
as documented. Pt with R radial A line- waveform as documented. Zeroed and recalibrated. Congurent with cuff BP within 10-12 mm/hg. Site wnl. Abd is soft with + BS. Denies nausea. Tolerating clear liquids. Pt felt the need to void again. Bladder
scanned for [address] cathed for 425 mls of yellow urine. IV NS infusing at 80 ml/hr via R forearm IV site. Capped int intact L arm. Sites wnl. Pt turned and repositioned. Skin care given. Call delarosa in reach. Dr. Brady in to see pt. Plan of care
reviewed with pt.
[2024-08-03 16:55] LABS: Glucose - Point of Care 142 mg/dl (70-99)
--- NOTE | 2024-08-03 18:36 | PTCARENOTE ---
Assessment is unchanged. Good appetite for dinner. Watching TV. Neuro assessment is unchanged. L neck incision is D+I.
[2024-08-03] MEDS: PULMICORT 0.5 MG INH (19:15)
--- NOTE | 2024-08-03 20:20 | PTCARENOTE ---
Addendum entered by Alexia Simpson RN 08/03/24 21:17:
neuro checks wnl, smile symmetrical, no tongue deviation
Original Note:
pt received from previous rn- aox3, pupils equal and reactive, extremities 4 in strength. left neck incision mora, ecchymosis to area, soft to touch, denies pain. right groin with tegaderm, c/d/i, soft to touch. pt with good pulses. right radial
chon zeroed and functioning. v paced with bbb and underlying a fib on monitor. pt on room air. encouraged cough and deep breathing. all safety precautions in place, call delarosa within reach. bladder scanned for 282cc.
[2024-08-03] MEDS: PROSCAR 5 MG PO (20:56)
[2024-08-03] MEDS: ZYLOPRIM 200 MG PO (20:56)
[2024-08-03] MEDS: PROTONIX 40 MG PO (20:56)
[2024-08-03] MEDS: TOPROL XL 200 MG PO (20:56)
[2024-08-03] MEDS: ZETIA 10 MG PO (20:56)
[2024-08-03] MEDS: NORVASC 10 MG PO (20:56)
[2024-08-03] MEDS: PEPCID 40 MG PO (20:57)
--- NOTE | 2024-08-04 00:01 | PTCARENOTE ---
assessment unchanged. neuro status wnl. on bipap and tolerating.
[2024-08-04 01:39] VITALS: PULSE 2; PULSE 81
--- NOTE | 2024-08-04 04:26 | PTCARENOTE ---
pt remains on bipap, assessment unchanged. labs sent as per order. straight cathed throughout shift.
[2024-08-04 04:40] LABS: Hematocrit 33.2 % (39.0-52.0); Hemoglobin 11.6 g/dL (13.0-18.0); Mean Corp Hgb Conc. 34.9 g/dL (33.0-37.0); Mean Corpuscular Hgb 29.7 pg (27.0-31.0); Mean Corpuscular Volume 84.9 fL (80.0-94.0); Mean Platelet Volume 10.7 fL (7.4-10.4); Platelet Count 196 10^3/uL (130-400); Red Blood Cell Count 3.91 10^6/uL (4.70-6.10); Red Cell Dist. Width 16.3 % (11.5-14.5); White Blood Cell Count 9.4 10^3/uL (4.8-10.8)
[2024-08-04 05:05] LABS: Blood Urea Nitrogen 56 mg/dl (9-20); Calcium 8.5 mg/dl (8.4-10.2); Carbon Dioxide 16 mmol/L (22-30); Chloride 106 mmol/L (98-107); Estimated Creatinine Clearance 36 ml/min; Glucose 126 mg/dl (70-99); Magnesium 2.7 mg/dl (1.6-2.3); Phosphorus 4.7 mg/dl (2.5-4.5); Potassium 4.7 mmol/L (3.5-5.1); Sodium 138 mmol/L (135-145)
[2024-08-04 05:22] LABS: INR 1.33; PT 16.6 Sec (11.4-14.6)
[2024-08-04 06:00] VITALS: BMI 26.0
[2024-08-04] MEDS: PULMICORT 0.5 MG INH (07:30)
[2024-08-04] MEDS: DUONEB 3 ML INH (07:30)
[2024-08-04 07:53] VITALS: BP 115/67
[2024-08-04] MEDS: PROTONIX 40 MG PO (07:57)
[2024-08-04] MEDS: FEOSOL 325 MG PO (07:58)
[2024-08-04] MEDS: PLAVIX 75 MG PO (07:58)
[2024-08-04] MEDS: HEPARIN 5000 UNITS SC (07:58)
[2024-08-04] MEDS: FIBERCON 625 MG PO (07:58)
[2024-08-04] MEDS: THERAGRAN 1 TABLET PO (07:58)
--- NOTE | 2024-08-04 08:07 | W.PN.INTV ---
Today's Communication / Plan
Recommendations
Up OOB as tolerated
Pain control
Continue with nocturnal BiPAP
Outpatient follow-up with our office
Encourage incentive spirometer use
Patient being prepared for discharge home. Land Conservation Specialist/Pulmonary service will now sign off. Please reconsult if there are any additional questions/concerns, or if patient's respiratory status deteriorates.
Assessment
-
Assessment: 79-year-old male non-smoker with a past medical history of chronic HFrEF s/p AICD, history of STEMI/V-fib cardiac arrest, aortic stenosis s/p TAVR, DM type II, CAD s/p CABG, hypertension, dyslipidemia, AURA on CPAP, history of COPD, CKD,
history of GI bleed s/p EGD with polyp removal/clip (06/2017), valvular heart disease, paroxysmal A-fib/a flutter on warfarin, chronic right carotid artery stenosis with history of left carotid artery stenosis s/p left carotid endarterectomy and
NAFLD who presents with elective left TCAR. Patient known to vascular surgery service with last office visit on 06/30/[address] Brady. Patient has chronic right-sided carotid occlusion and left distal common carotid artery/bulb severe stenosis.
Vascular intervention with left TCAR was recommended and he was loaded with Plavix and aspirin 1 week prior to surgery and was instructed to hold his Coumadin 4 days prior. On 08/03/2024 he underwent open exposure of his left common carotid artery
with transcarotid left carotid artery revascularization with stent. There were no immediate complications and he was transferred to the ICU postoperatively with smoke jumper services consulted for additional management/recommendations.
Chronic conditions ASSOCIATE PROFESSOR OF THEOLOGY: Aortic valve stenosis s/p TAVR, DM type II, chronic HFrEF s/p AICD, history of STEMI/V-fib cardiac arrest, hyperlipidemia, CAD s/p CABG, hypertension, dyslipidemia, AURA on BiPAP, cholelithiasis, valvular heart disease with
MR, TR and AI, history of bifascicular block, A-fib/a flutter, left + right carotid artery stenosis with history of left carotid endarterectomy, GERD, nonalcoholic fatty liver disease, peripheral neuropathy, history of pneumonia (08/2020), history
of GI bleed s/p EGD with polyp removal/clip (06/2017), CKD
Impression:
#Severe recurrent left carotid bulb stenosis with history of left carotid endarterectomy s/p transcarotid left carotid artery revascularization with stent (TCAR) utilizing a [employer] D[employer]ITAL COMPUTER OPERATOR flow reversal neuroprotection (POD #1)
#Chronic right carotid artery occlusion
#Anemia
#Leukocytosis �now resolved
#ALANA on CKD (baseline creatinine 1.6) - now resolved
#DM type II c/b hyperglycemia (last HbA1C: 6.8 on 05/16/2024)
#Chronic HFrEF s/p AICD
#Aortic stenosis s/p TAVR
#Paroxysmal A-fib with history of A-flutter on coumadin
#AURA on BiPAP 11/7cmH2O
Plan:
Postoperative surgical intensive care unit monitoring
Maintain SpO2 >90-94%
prn nebulized bronchodilators - not currently bronchospastic
Incentive spirometry encouraged 10x per hour for at least 4 hrs a day
Aspiration precautions
Pain control
Continue nocturnal BiPAP with sleep (home settings = IPAP 11 cmH2O, EPAP 7 cmH2O) --> his residual AHI over the 30-day period from 02/08 - 03/09/2024 was 17.2. I adjusted settings to 10/15 to see if this helps improve his sleep quality while
hospitalized and this should be further addressed as an outpatient
Neuro and vascular checks per protocol
Maintain MAP>65
Replete electrolytes with K>4, Mg>2
Maintain euglycemia with goal BG 140-180
Sodium/fluid restricted diet due to Hx of chronic HFrEF
Monitor HR with goal <110bpm
Vascular surgery following-correspondence and operative notes reviewed
Transfuse blood products as needed to keep Hb>7g/dL, and plt>50k (given post-operative status)
DVT prophylaxis
Early nutrition
Early mobilization
Patient does follow with us in the office with last visit on with DELTA Larsen. His last office visit was supposed to be on 04/26/2024 but it was canceled. He is recommended to make a follow-up appointment to continue to see us
for continued management of his AURA on CPAP and history of COPD.
Patient being prepared for discharge home. Land Conservation Specialist/Pulmonary service will now sign off. Thank you for allowing us to be involved in the care of this patient. Please reconsult if there are any additional questions/concerns, or if patient's
respiratory status deteriorates.
Data:
CXR 08/03/2024: No active cardiopulmonary disease.
Total time spent today was 40 minutes for this encounter. Time includes reviewing laboratory test/imaging results, reviewing pertinent medical records, obtaining and reviewing medical history, performing an appropriate exam, ordering medications,
tests and procedures. Time also includes documentation of this encounter, coordinating patient care and communicating with other healthcare professionals. Total time does not include separately billed tests performed on this date of service.
Subjective Dataa
Subjective Data
Date of Service:
Date of Service: August 04, 2024
Chief Complaint: Land Conservation Specialist Follow Up
Subjective:
Patient seen and evaluated this morning. Heart rate 87, saturating 94% on room air, and BP 115/67. He is sitting in chair in no acute distress. He is being prepared for discharge home today. He denies chest pain, ABDUL, abdominal pain, nausea,
fevers or chills. Patient's at bedside and all questions were answered.
Review of Systems
General: Other (Negative unless mentioned above)
Objective Data
Data Reviewed
Vital Signs / I&O / Oxygen:
Vital Signs
Temp Pulse Resp BP Pulse Ox
98.4 F 94 18 115/67 96
08/04/24 08:14 08/04/24 08:00 08/04/24 08:00 08/04/24 07:53 08/04/24 08:00
Intake and Output
08/03/24 08/04/24 08/05/24
06:59 06:59 06:59
Intake Total 2219
Output Total 2224 325 / 325
Balance -5 / -5 -325 / -325
SaO2 96
Physical Exam
General: Respiratory Distress (negative), Comfortable, Chills (negative) and Sweats (negative)
HEENT: Normocephalic and Anicteric
Cardiovascular: Irregular Rhythm and Peripheral Edema (negative)
Respiratory: Wheeze (negative), Crackles (Bibasilar + right middle lung field), Rhonchi (negative) and Non-Labored Respirations
GI: Soft, Non Distended, Non Tender and Normal Bowel Sounds
Neurology: Awake, Alert and Tremors (negative)
Skin: Warm, Dry and Jaundice (negative)
Labs/Micro/Reports
Lab Data
08/04/24 04:19
08/04/24 04:19
Laboratory Results
08/03/24 08/04/24
10:11 04:19
PT 17.0 H 16.6 H
INR 1.38 1.33
APTT 37.2 H 39.0 H
--- NOTE | 2024-08-04 08:14 | PTCARENOTE ---
report received, assessments per work list. [place], neuro intact. excellent appetite for breakfast, denies pain. moist non productive cough. right groin, left neck intact. palpable pulses. call delarosa in reach
--- NOTE | 2024-08-04 08:17 | W.PN.VS ---
Today's Communication / Plan
-
See below.
Assessment/Plan
-
Assessment: 79-year-old male POD #1 left TCAR
Plan:
Discontinue arterial line
Discontinue IV fluids
Out of bed to chair with progression to ambulation as tolerated
Continue Plavix 75 p.o. daily with home Coumadin
Likely discharge later this afternoon pending progression
Subjective Data
-
Date of Service: August 04, 2024
Patient seen and examined at bedside, offers no complaints. Denies nausea, vomiting, fever, chills, headache, unilateral weakness, and vision changes. Requires urinary self-catheterization at home, continued care provided while inpatient. Reports
mild postoperative pain that is well-managed with current pain medication regimen. Tolerating p.o. diet.
Objective Data
-
Vital Signs
Temp Pulse Resp BP Pulse Ox
98.4 F 94 18 115/67 96
08/04/24 08:14 08/04/24 08:00 08/04/24 08:00 08/04/24 07:53 08/04/24 08:00
Intake and Output
08/03/24 08/04/24 08/05/24
06:59 06:59 06:59
Intake Total 2220 / 2220
Output Total 2225 / 2225 325 / 325
Balance -5 / -5 -325 / -325
Intake:
Oral fluids 700 / 700
IV fluids (Total) 1520 / 1520
Nss 1,000 ml @ 80 mls/hr IV . 1520 / 1520
[id number] SHIRA Rx#:[id number]
Output:
Urine, Figueroa 450 / 450
Straight cath output 1775 / 1775 325 / 325
Lab Results
08/04/24 04:19
08/04/24 04:19
Calcium 8.5 mg/dl (8.4-10.2) 08/04/24 04:19
Phosphorus 4.7 mg/dl (2.5-4.5) H 08/04/24 04:19
Magnesium 2.7 mg/dl (1.6-2.3) H 08/04/24 04:19
Physical Exam
-
Awake alert and oriented, no apparent distress resting bed comfortably
Face symmetrical, left upper chest surgical incision CDI
No tachypnea
No tachycardia
ABD flat
Bilateral lower extremities warm with and without edema, moves bilateral upper extremities and lower extremities to command and spontaneously, equal strength
[2024-08-04 10:11] VITALS: BP 109/83
--- NOTE | 2024-08-04 10:53 | CM ---
CM met with patient in room. Patient confirmed demographics. Patient lives independently with . Patient has a history of VN, but does not feel he needs is currently. Patient denied history of SNF. Patient does self-catheterize. Patient is
active with his PCP. Patient uses [facility] for medication services.
PLAN: Home no needs.
[2024-08-04 11:03] VITALS: BP 107/69
[2024-08-04 12:06] VITALS: BP 122/73
--- NOTE | 2024-08-04 12:20 | PTCARENOTE ---
reassessed, had large bowel movement. straight cath per patient request. ambulated in [place] with rolling walker
--- NOTE | 2024-08-04 12:55 | W.DS.TRANS ---
DC Summary - Residential Leasing Agent
-
Discharge Instructions:
Discharge Diagnosis/Procedures Left carotid stenosis, status post TCAR
Diet As tolerated
Activity No strenuous activity
Driving Restrictions Not until seen by your Dr
Bathing Restrictions OK to Shower
Instructions:
Stand-Alone Forms: DC Instr - Vascular OR
Changes to Home Medications: No
Discharge Medications:
DC Medications w/original date entered in [employer]
ezetimibe 10 mg tablet 10 mg PO HS High cholesterol 04/03/14
multivitamin with folic acid 400 mcg tablet (Tab-A-Nicole) 1 tab PO DAILY Supplement 03/04/17
pantoprazole 40 mg tablet,delayed release 40 mg PO BID Gastrointestinal issue 10/26/18
fish oil-dha-epa 1,200 mg-144 mg-216 mg capsule 1 cap PO BID Supplement 06/20/20
amlodipine 10 mg tablet 10 mg PO HS Blood pressure 12/02/21
budesonide 0.5 mg/2 mL suspension for nebulization 0.5 mg inhalation R BID Lung/breathing issues 01/23/22
famotidine 40 mg tablet 40 mg PO HS Gastrointestinal issue 01/23/22
ipratropium 0.5 mg-albuterol 3 mg (2.5 mg base)/3 mL nebulization soln 3 ml inhalation R TID Lung/breathing issues 01/23/22
torsemide 20 mg tablet 20 mg PO BID@0800,1500 Fluid Retention/Swelling 01/23/22
Lactobac no.2-Bifidobac no.1-S. thermo 112.5 billion cell capsule (Visbiome) 1 cap PO BID Gastrointestinal Issue 04/04/24
dapagliflozin propanediol 10 mg tablet (Farxiga) 10 mg PO DAILY Heart Failure 04/04/24
finasteride 5 mg tablet 5 mg PO HS Urinary Issue 04/04/24
metoprolol succinate 200 mg tablet,extended release 24 hr 200 mg PO HS Heart Disease/Condition 04/04/24
allopurinol 100 mg tablet 200 mg PO HS Gout 06/22/24
calcium polycarbophil 625 mg tablet (FiberCon) 625 mg PO DAILY Gastrointestinal Issue 06/22/24
ferrous sulfate 325 mg (65 mg iron) tablet (iron) 325 mg PO DAILY Supplement 06/22/24
clopidogrel 75 mg tablet (Plavix) 75 mg PO DAILY Blood Clot Prevention/Tx 07/25/24
warfarin 2 mg tablet 4 mg PO SUMOTUWETHSA Blood Clot Prevention/Tx 08/03/24
warfarin 2 mg tablet 5 mg PO FR Blood Clot Prevention/Tx 08/03/24
Home Medication Changes
Pending Results: No
--- NOTE | 2024-08-04 13:00 | CM ---
CM reviewed medical records. Plan for discharge today. No needs noted.
PLAN: home no needs.
== END 2024-08-04 14:34 | disposition home or self-care (01) | DRG 35 ==
LOC: ICU 06:10
PROVIDERS: Nurse Practitioner Acute Care; ADMITTING PHYSICIAN Surgery Vascular Surgery; CONSULT PHYSICIAN Internal Medicine Critical Care Medicine; FAMILY PHYSICIAN Nurse Practitioner Primary Care
PROC: X2AJ336 Cerebral Embolic Filtration, Extracorporeal Flow Reversal Circuit from Left Common Carotid Artery, Percutaneous Approach, New Technology Group 6 (ICD-10-PCS; 2024-08-03)
PROC: 037L3DZ Dilation of Left Internal Carotid Artery with Intraluminal Device, Percutaneous Approach (ICD-10-PCS; 2024-08-03)
DX: I65.23 Occlusion and stenosis of bilateral carotid arteries (principal); I13.0 Hypertensive heart and chronic kidney disease with heart failure and stage 1 through stage 4 chronic kidney disease, or unspecified chronic kidney disease; I50.22 Chronic systolic (congestive) heart failure; N17.9 Acute kidney failure, unspecified; I45.2 Bifascicular block; D63.1 Anemia in chronic kidney disease; E11.22 Type 2 diabetes mellitus with diabetic chronic kidney disease; E11.42 Type 2 diabetes mellitus with diabetic polyneuropathy; K76.0 Fatty (change of) liver, not elsewhere classified; E11.65 Type 2 diabetes mellitus with hyperglycemia; Z66 Do not resuscitate; J44.9 Chronic obstructive pulmonary disease, unspecified; N18.9 Chronic kidney disease, unspecified; I35.0 Nonrheumatic aortic (valve) stenosis; Z95.2 Presence of prosthetic heart valve; Z86.74 Personal history of sudden cardiac arrest; I48.0 Paroxysmal atrial fibrillation; Z95.1 Presence of aortocoronary bypass graft; D72.829 Elevated white blood cell count, unspecified; E78.5 Hyperlipidemia, unspecified; G47.33 Obstructive sleep apnea (adult) (pediatric); I25.10 Atherosclerotic heart disease of native coronary artery without angina pectoris; I25.2 Old myocardial infarction; J98.4 Other disorders of lung; K21.9 Gastro-esophageal reflux disease without esophagitis; K80.20 Calculus of gallbladder without cholecystitis without obstruction; Z77.22 Contact with and (suspected) exposure to environmental tobacco smoke (acute) (chronic); Z79.01 Long term (current) use of anticoagulants; Z79.02 Long term (current) use of antithrombotics/antiplatelets; Z79.51 Long term (current) use of inhaled steroids; Z79.899 Other long term (current) drug therapy; Z95.810 Presence of automatic (implantable) cardiac defibrillator; Z87.19 Personal history of other diseases of the digestive system; Z87.01 Personal history of pneumonia (recurrent); Z88.0 Allergy status to penicillin; Z88.8 Allergy status to other drugs, medicaments and biological substances; Z82.49 Family history of ischemic heart disease and other diseases of the circulatory system
CPT/HCPCS: 36415; 37215; 71045; 71046; 80048; 82962; 83735; 84100; 85025; 85027; 85610; 85730; 86850; 86900; 86901; 93005; 94640; 94660; 95938; 95941; 95955; C1725; C1769; C1876; C1884; C1894; Q9967

== ENCOUNTER → 2024-08-21 10:07 | Outpatient (REF) | payer MEDICARE, SELFPAY ==
[2024-08-21 11:15] LABS: % Basophils 1.1 % (0-2); % Eosinophils 2.5 % (0-6); % Immature Granulocytes 0.4 % (0-0.5); % Lymphocytes 14.9 % (20.5-51.1); % Monocytes 7.6 % (1.7-9.3); % Neutrophils 73.5 % (42.2-75.2); Absolute Basophils 0.1 10^3/uL (0-0.2); Absolute Eosinophils 0.2 10^3/uL (0-0.7); Absolute Lymphocytes 1.1 10^3/uL (1.2-3.4); Absolute Monocytes 0.6 10^3/uL (0.1-0.6); Absolute Neutrophils 5.3 10^3/uL (1.4-6.5); Hemoglobin 14.1 g/dL (13.0-18.0); Mean Corp Hgb Conc. 33.6 g/dL (33.0-37.0); Mean Corpuscular Hgb 29.7 pg (27.0-31.0); Mean Corpuscular Volume 88.4 fL (80.0-94.0); Mean Platelet Volume 10.4 fL (7.4-10.4); Nucleated Red Blood Cells % 0 % (-); Platelet Count 250 10^3/uL (130-400); Red Blood Cell Count 4.75 10^6/uL (4.70-6.10); Red Cell Dist. Width 16.1 % (11.5-14.5); White Blood Cell Count 7.2 10^3/uL (4.8-10.8)
[2024-08-21 11:32] LABS: PT 50.9 Sec (11.4-14.6)
[2024-08-21 11:39] LABS: ALT (SGPT) 20 U/L (0-50); AST (SGOT) 29 U/L (17-59); Albumin 4.5 g/dl (3.5-5.0); Alkaline Phosphatase 88 U/L (38-126); Blood Urea Nitrogen 72 mg/dl (9-20); Calcium 9.2 mg/dl (8.4-10.2); Carbon Dioxide 24 mmol/L (22-30); Chloride 98 mmol/L (98-107); Glucose 157 mg/dl (70-99); Sodium 139 mmol/L (135-145); Total Bilirubin 0.6 mg/dl (0.2-1.3); eGFR 24.32
[2024-08-21 11:41] LABS: INR 5.59
[2024-08-21 12:04] LABS: Glycohemoglobin (HgbA1c) 6.4 % (4.0-5.6)
== END ==
LOC: REG 10:07
PROVIDERS: ATTENDING PHYSICIAN Internal Medicine; FAMILY PHYSICIAN Nurse Practitioner Primary Care
DX: E11.21 Type 2 diabetes mellitus with diabetic nephropathy (principal); R79.89 Other specified abnormal findings of blood chemistry; R79.9 Abnormal finding of blood chemistry, unspecified; N18.32 Chronic kidney disease, stage 3b; E11.22 Type 2 diabetes mellitus with diabetic chronic kidney disease; D63.1 Anemia in chronic kidney disease; I48.0 Paroxysmal atrial fibrillation
CPT/HCPCS: 36415; 80053; 83036; 85025; 85610

== ENCOUNTER → 2024-08-24 07:23 | Outpatient (REF) | payer MEDICARE, SELFPAY ==
[2024-08-24 09:59] LABS: INR 3.24; PT 33.5 Sec (11.4-14.6)
== END ==
LOC: REG 07:23
PROVIDERS: ATTENDING PHYSICIAN Internal Medicine
DX: I48.0 Paroxysmal atrial fibrillation (principal)
CPT/HCPCS: 36415; 85610

== ENCOUNTER → 2024-08-31 08:30 | Outpatient (REF) | payer MEDICARE, SELFPAY ==
[2024-08-31 10:01] LABS: INR 4.61; PT 44.4 Sec (11.4-14.6)
== END ==
LOC: REG 08:30
PROVIDERS: ATTENDING PHYSICIAN Internal Medicine
DX: I48.21 Permanent atrial fibrillation (principal)
CPT/HCPCS: 36415; 85610

== ENCOUNTER → 2024-09-04 09:15 | Outpatient (REF) | payer MEDICARE, SELFPAY | LOC: DHVS 09:15 | PROVIDERS: ATTENDING PHYSICIAN Physician Assistant; FAMILY PHYSICIAN Nurse Practitioner Primary Care | DX: I65.22 Occlusion and stenosis of left carotid artery (principal) | CPT/HCPCS: 93880 ==

== ENCOUNTER → 2024-09-06 08:55 | Outpatient (REF) | payer MEDICARE, SELFPAY ==
[2024-09-06 10:25] LABS: INR 3.64; PT 36.8 Sec (11.4-14.6)
== END ==
LOC: REG 08:55
PROVIDERS: ATTENDING PHYSICIAN Internal Medicine; FAMILY PHYSICIAN Nurse Practitioner Primary Care
DX: I48.21 Permanent atrial fibrillation (principal)
CPT/HCPCS: 36415; 85610

== ENCOUNTER → 2024-09-13 09:11 | Outpatient (REF) | payer MEDICARE, SELFPAY ==
[2024-09-13 10:33] LABS: INR 2.43; PT 26.9 Sec (11.4-14.6)
== END ==
LOC: REG 09:11
PROVIDERS: ATTENDING PHYSICIAN Internal Medicine; FAMILY PHYSICIAN Nurse Practitioner Primary Care
DX: I48.21 Permanent atrial fibrillation (principal)
CPT/HCPCS: 36415; 85610

== ENCOUNTER → 2024-09-20 08:57 | Outpatient (REF) | payer MEDICARE, SELFPAY ==
[2024-09-20 10:10] LABS: INR 2.98; PT 31.3 Sec (11.4-14.6)
== END ==
LOC: REG 08:57
PROVIDERS: ATTENDING PHYSICIAN Internal Medicine; FAMILY PHYSICIAN Nurse Practitioner Primary Care
DX: I48.92 Unspecified atrial flutter (principal)
CPT/HCPCS: 36415; 85610

== ENCOUNTER → 2024-09-27 13:29 | Outpatient (REF) | payer MEDICARE, SELFPAY ==
[2024-09-27 16:31] LABS: INR 2.88; PT 30.5 Sec (11.4-14.6)
== END ==
LOC: REG 13:29
PROVIDERS: ATTENDING PHYSICIAN Internal Medicine; FAMILY PHYSICIAN Nurse Practitioner Primary Care
DX: I48.19 Other persistent atrial fibrillation (principal)
CPT/HCPCS: 36415; 85610

== ENCOUNTER → 2024-10-04 09:14 | Outpatient (REF) | payer MEDICARE, SELFPAY ==
[2024-10-04 10:16] LABS: INR 2.53; PT 27.7 Sec (11.4-14.6)
== END ==
LOC: REG 09:14
PROVIDERS: ATTENDING PHYSICIAN Internal Medicine; FAMILY PHYSICIAN Nurse Practitioner Primary Care
DX: I48.19 Other persistent atrial fibrillation (principal)
CPT/HCPCS: 36415; 85610

== ENCOUNTER → 2024-10-30 09:51 | Outpatient (REF) | payer MEDICARE, SELFPAY ==
[2024-10-30 10:35] LABS: INR 2.49
== END ==
LOC: REG 09:51
PROVIDERS: ATTENDING PHYSICIAN Internal Medicine; FAMILY PHYSICIAN Nurse Practitioner Primary Care
DX: I48.0 Paroxysmal atrial fibrillation (principal)
CPT/HCPCS: 36415; 85610